=== PATIENT | female | born 1955 | race Caucasian/White ===

== ENCOUNTER 2017-11-09 14:16 | Emergency (ER) | payer MEDICAID, SELFPAY ==
--- NOTE | 2017-11-09 15:20 | DT_ITS ---
This patient was seen during an EMR downtime November 07, 2017 - November 14, 2017. This patient may have a combination of paper and electronic documentation or all paper documentation. All documentation is viewable within the e-chart portion of [facility] for each patient visit.
== END 2017-11-09 15:25 | disposition home or self-care (01) ==
PROVIDERS: Emergency Provider Emergency Medicine; Family Provider Student in an Organized Health Care Education/Training Program; PCP Student in an Organized Health Care Education/Training Program
DX: S39.012A Strain of muscle, fascia and tendon of lower back, initial encounter (principal); X50.1XXA Overexertion from prolonged static or awkward postures, initial encounter; Y93.9 Activity, unspecified; Y92.9 Unspecified place or not applicable; I25.10 Atherosclerotic heart disease of native coronary artery without angina pectoris; E11.9 Type 2 diabetes mellitus without complications; I10 Essential (primary) hypertension; E78.00 Pure hypercholesterolemia, unspecified; I25.2 Old myocardial infarction; J44.9 Chronic obstructive pulmonary disease, unspecified; Z90.89 Acquired absence of other organs; Z95.1 Presence of aortocoronary bypass graft; F17.200 Nicotine dependence, unspecified, uncomplicated
CPT/HCPCS: 99282

== ENCOUNTER 2020-01-30 22:39 | Emergency (ER) | payer MEDICAID, SELFPAY ==
[2020-01-30 22:40] VITALS: BP 143/87; PULSE 93; RESP 20; TEMP 36; O2SAT 97; BMI 31.5
--- NOTE | 2020-01-30 22:55 | ED.VIS.GEN ---
History of Present Illness Chief Complaint: Wound Informant: Patient, Family Onset: Days - 5 Narrative: Presents with daughter evaluation of wound to left lower extremity. Reports fell on gravel 5 days ago with an abrasion. Has been cleaning it. Today noted redness after removing dressing and little drainage. Denies fever. Patient is a diabetic. Tetanus is unknown. Denies any allergies. No other injuries. Prior similar symptoms: No Past Medical History - Allergies and Home Meds Allergies/Adverse Reactions: Allergies No Known Allergies Allergy (Verified 03/26/17 17:30) Primary Care Physician: Blanca Harris MD [Primary Care Provider] - Past Medical History: - - Coronary disease, hypertension, hyperlipidemia, diabetes Surgical History: noncontributory, coronary bypass surgery Smoking Status: Former smoker - Family History Maternal Family History: Family History (Last Updated 06/10/17 @ 09:[address] Petros Livingston MD) Mother Hypertension Family History: Reports: No pertinent history Review of Systems General: Denies: Chills, Fever, Sweats Eyes: Denies: Visual changes - bilaterally, Diplopia ENT: Denies: Rhinorrhea, Sore throat Cardiovascular: Denies: Chest pain, Palpitations Respiratory: Denies: Dyspnea, Cough, Dyspnea on exertion Gastrointestinal: Denies: Abdominal pain, Nausea, Vomiting, Diarrhea, Melena, Hematochezia Genitourinary: Denies: Dysuria, Hematuria, Frequency Musculoskeletal: Denies: Back pain, Extremity Pain Skin: Reports: Wounds. Denies: Rash Neurological: Denies: Headache, Weakness, Numbness Physical Exam Vital Signs/Narrative: Vital Signs Temp Pulse Resp BP Pulse Ox 01/30/20 22:40 96.8 F L 93 20 H 143/87 H 97 Inital Vital Signs reviewed: Yes General: Well nourished, Well developed, No Acute Distress Head: Normocephalic, Atraumatic Eyes: Perrl, EOMI ENT: Moist mucous membranes, No rhinorrhea Neck: Supple, Nontender Cardiovascular: Regular rate, Regular rhythm, No murmurs Respiratory: No distress, CTA bilaterally, Chest nontender Abdomen: Soft, Nontender, Nondistended, Normal bowel sounds Back: Nontender, Normal Inspection Extremities: Nontender, No edema, - - Left lower extremity: No knee or ankle tenderness, no deformities, neurovascular intact distally. Skin: - - Left lower leg: Anterior tibia: Abrasion down the middle third of anterior tibia with scabbing. There is clear drainage proximal and distal, middle of the wound 1 area small exudates. There is mild surrounding erythema around the wound with slight tenderness, there is no crepitus of the wounds. Neurological: Alert, Oriented x3, Cranial nerves II-XII grossly intact, Normal Strength, Normal Sensation Psychological: Normal affect, Normal Mood Diagnostic/Tx/Re-eval - Medical Decision Making Erythema was outlined by myself. Vitals are stable. Patient's tetanus updated. With increasing erythema with drainage and pus concerns for cellulitis. Will start on Keflex and Bactrim, discussed wound care with the patient. Wounds will be cleansed dressed with bacitracin and nursing in the ED. Signs and symptom discussed to return. Close follow-up as an outpatient. All questions were answered. ED Disposition - Plan for ED Patient: Disposition: Home or Assisted Living Diagnosis: Cellulitis of left leg without foot, Tetanus toxoid vaccination administered at current visit, Skin abrasion Instructions: ED Cellulitis, ED Wound Care Prescriptions: Bacitracin 30 gm TP DAILY #1 tube Transmission Status: Pending to [facility] Smz/Tmp Ds [Bactrim Ds] 1 tab PO BID #20 tab Transmission Status: Pending to [facility] Cephalexin [Keflex] 500 mg PO Q6 #40 cap Transmission Status: Pending to [facility] Referrals: Blanca Harris MD [Primary Care Provider] - 3-5 Days
[2020-01-30 23:16] VITALS: BP 146/87; PULSE 80; RESP 16; O2SAT 96
[2020-01-30] MEDS: BACITRACIN 15 GM Tube 1 APPLIC TOPICAL (23:20)
[2020-01-30] MEDS: Diphth,Pertuss(Acell),Tet Vac 0.5 ML Vial IM (23:20)
[2020-01-30] MEDS: Cephalexin 250 MG Capsule 500 MG PO (23:20)
[2020-01-30] MEDS: Smz/Tmp Ds Tablet 1 TABLET PO (23:20)
== END 2020-01-30 23:44 | disposition home or self-care (01) ==
LOC: ED 23:08
PROVIDERS: Emergency Provider Emergency Medicine; PCP Internal Medicine
DX: S80.812A Abrasion, left lower leg, initial encounter (principal); L03.116 Cellulitis of left lower limb; W19.XXXA Unspecified fall, initial encounter; Y93.9 Activity, unspecified; Y92.9 Unspecified place or not applicable; I10 Essential (primary) hypertension; Z95.1 Presence of aortocoronary bypass graft; Z79.82 Long term (current) use of aspirin; Z79.899 Other long term (current) drug therapy; Z87.891 Personal history of nicotine dependence
CPT/HCPCS: 90715; 99283

== ENCOUNTER 2020-02-07 16:51 | Emergency (ER) | payer MEDICAID, SELFPAY ==
[2020-02-07 16:55] VITALS: BP 80/53; PULSE 36; RESP 17; TEMP 36.6; O2SAT 92; BMI 33.0
--- NOTE | 2020-02-07 17:11 | ED.DCSUM_ITS ---
History of Present Illness Chief Complaint: Confusion Informant: Patient, Family Narrative: 64-year-old female presenting with low heart rate. She is accompanied by her daughter who states that she was here 01/30/2020 for evaluation of the left lower extremity wound. Patient had fallen and gravel. She was discharged home with Bactrim and Keflex. She states that this medication was giving her epigastric pain. This is worsened over the last 3 days. Patient states that she believes it was due to the medication. Daughter has concerned that patient seems confused today. When asked to describe this she states that she is slow to answer but answers appropriately. Patient states that she had been in [place] since April and came back in October 2019. She states that she established medical care with a nurse practitioner for her old physician but is unable to see the physician until August. She states that she is supposed to take 12.5 mg of metoprolol twice daily but takes the whole dose in the morning so she does not take it at night. - Past Medical History (1) Hypokalemia Status: Chronic (2) Pulmonary hypertension Status: Chronic (3) COPD (chronic obstructive pulmonary disease) Status: Chronic (4) Diabetes mellitus type 2 in nonobese Status: Chronic (5) Acute respiratory insufficiency Status: Chronic Past Medical History - Allergies and Home Meds Allergies/Adverse Reactions: Allergies No Known Allergies Allergy (Verified 02/07/20 16:59) Past Medical History: - - Reviewed and problem list Surgical History: noncontributory, coronary bypass surgery Smoking Status: Current every day smoker Alcohol: None Drugs: None - Family History Maternal Family History: Family History (Last Updated 06/10/17 @ 09:[address] Petros Livingston MD) Mother Hypertension Family History: Reports: No pertinent history Review of Systems General: Reports: Malaise, - - Confusion. Denies: Chills, Fever Eyes: Denies: Visual changes - bilaterally, Diplopia ENT: Denies: Rhinorrhea, Sore throat Cardiovascular: Denies: Chest pain, Palpitations Respiratory: Denies: Dyspnea, Cough, Dyspnea on exertion Gastrointestinal: Reports: Abdominal pain, Constipation Genitourinary: Denies: Dysuria, Hematuria Musculoskeletal: Denies: Myalgias, Arthralgias Skin: Denies: Rash, Abscess Physical Exam Vital Signs/Narrative: Vital Signs Temp Pulse Resp BP Pulse Ox 02/07/20 16:55 97.8 F 36 L 17 80/53 L 92 General: Obese, - - Hypotensive, bradycardic, hypoxic Eyes: Negative for: Perrl, EOMI ENT: Moist mucous membranes, No rhinorrhea Respiratory: - - Bibasilar crackles. No wheezing. In a stair movement Abdomen: Nondistended, - - Epigastric tenderness to palpation. Back: Nontender, Normal Inspection Skin: Normal color Neurological: Alert, Cranial nerves II-XII grossly intact Psychological: - - Slightly confused but answers questions appropriately when redirected Diagnostic/Tx/Re-eval Clinical Impression(s) from Imaging Studies Abdomen/Pelvis CT 02/07/20 17:14 IMPRESSION: 1. Cardiomegaly with evidence of median sternotomy. 2. Distended thick-walled gallbladder with high density material within the lumen. This could be further evaluated sonographically. 3. Small hiatal hernia. 4. Atherosclerotic changes of the abdominal aorta. 5. Mild degenerative changes of the lumbar spine. Electronically Signed: Ernesto Cedeno DO at 19:07 EDT Tel [phone], Service support , Chest CT 02/07/20 17:14 IMPRESSION: 1. Minimal atelectatic changes in the lingula due to compression by the enlarged heart. 2. Evidence of median sternotomy. 3. Degenerative changes of the lumbar spine. 4. Small hiatal hernia Electronically Signed: Ernesto Cedeno DO at 19:21 EDT Tel [phone], Service support , Chest X-Ray 02/07/20 17:20 IMPRESSION: Stable cardiomegaly with evidence of median sternotomy. There is no pulmonary disease. Electronically Signed: Ernesto Cedeno DO at 17:52 EDT Tel [phone], Service support , Abdomen Ultrasound 02/07/20 19:30 IMPRESSION: Thickened edematous gallbladder wall with minimal internal sludge. There is a negative sonographic Garay''s sign. The findings are are equivocal for acute cholecystitis. A hepatobiliary scan could be performed if clinically indicated. Electronically Signed: Ernesto Cedeno DO at 20:07 EDT Tel [phone], Service support , Laboratory Data 02/07/20 02/07/20 02/07/20 16:50 16:50 16:50 WBC Cancelled Corrected WBC Cancelled RBC Cancelled Hgb Cancelled Hct Cancelled MCV Cancelled MCH Cancelled MCHC Cancelled RDW Std Deviation Cancelled RDW Coeff of Chris Cancelled Plt Count Cancelled MPV Cancelled Immature Gran % (Auto) Cancelled Neut % (Auto) Cancelled Lymph % (Auto) Cancelled Mchenry % (Auto) Cancelled Eos % (Auto) Cancelled Baso % (Auto) Cancelled Absolute Neuts (auto) Cancelled Absolute Lymphs (auto) Cancelled Total Counted Cancelled Neutrophils % (Manual) Cancelled Band Neutrophils % Cancelled Lymphocytes % (Manual) Cancelled Monocytes % (Manual) Cancelled Eosinophils % (Manual) Cancelled Basophils % (Manual) Cancelled Metamyelocytes % Cancelled Myelocytes % Cancelled Promyelocytes % Cancelled Blast Cells % Cancelled Plasma Cell % (Manual) Cancelled Other Cells % Cancelled Nucleated RBC % Cancelled Nucleated RBCs/100 WBC Cancelled Differential Comment Cancelled Diff Path Review Cancelled Hypersegmented Neuts Cancelled Atypical Lymphocytes Cancelled Reactive Lymphocytes Cancelled Smudge Cells Cancelled Toxic Granulation Cancelled Toxic Vacuolation Cancelled Dohle Bodies Cancelled [place] Rods Cancelled Platelet Estimate Cancelled Plt Morphology Comment Cancelled RBC Morphology Cancelled Polychromasia Cancelled Hypochromasia Cancelled Poikilocytosis Cancelled Basophilic Stippling Cancelled Anisocytosis Cancelled Microcytosis Cancelled Macrocytosis Cancelled Spherocytes Cancelled Sickle Cells Cancelled Target Cells Cancelled Tear Drop Cells Cancelled Ovalocytes Cancelled Stomatocytes Cancelled [place] Bodies Cancelled [place] Cells Cancelled Bite Cells Cancelled Crenated Cell Cancelled Acanthocytes (Spur) Cancelled Rouleaux Cancelled Schistocytes Cancelled PT Cancelled INR Cancelled APTT Cancelled Sodium Cancelled Potassium Cancelled Chloride Cancelled Carbon Dioxide Cancelled Anion Gap Cancelled BUN Cancelled Creatinine Cancelled Estim Creat Clear Calc Cancelled Est GFR (MDRD) Af Amer Cancelled Est GFR (MDRD) Non-Af Cancelled BUN/Creatinine Ratio Cancelled Glucose Cancelled Lactic Acid Calcium Cancelled Total Bilirubin Cancelled AST Cancelled ALT Cancelled Alkaline Phosphatase Cancelled Troponin I Total Protein Cancelled Albumin Cancelled Globulin Cancelled Albumin/Globulin Ratio Cancelled Lipase Cancelled Urine Color Urine Clarity Urine pH Ur Specific [place] Urine Protein Urine Glucose (UA) Urine Ketones Urine Occult Blood Urine Nitrite Urine Bilirubin Urine Urobilinogen Ur Leukocyte Esterase Urine RBC Urine WBC Ur Squamous Epith Cells Uric Acid Crystals Urine Bacteria Urine Mucus 02/07/20 02/07/20 02/07/20 17:50 17:50 17:50 WBC 7.7 Corrected WBC RBC 4.00 L Hgb 11.8 L Hct 36.1 L MCV 90.3 MCH 29.5 MCHC 32.7 RDW Std Deviation 51.1 H RDW Coeff of Chris 15.5 H Plt Count 214 MPV 10.9 Immature Gran % (Auto) 0.700 Neut % (Auto) 75.2 H Lymph % (Auto) 17.0 L Mchenry % (Auto) 5.7 Eos % (Auto) 0.9 Baso % (Auto) 0.5 Absolute Neuts (auto) 5.8 Absolute Lymphs (auto) 1.31 Total Counted Neutrophils % (Manual) Band Neutrophils % Lymphocytes % (Manual) Monocytes % (Manual) Eosinophils % (Manual) Basophils % (Manual) Metamyelocytes % Myelocytes % Promyelocytes % Blast Cells % Plasma Cell % (Manual) Other Cells % Nucleated RBC % 0 Nucleated RBCs/100 WBC Differential Comment Diff Path Review Hypersegmented Neuts Atypical Lymphocytes Reactive Lymphocytes Smudge Cells Toxic Granulation Toxic Vacuolation Dohle Bodies [place] Rods Platelet Estimate Plt Morphology Comment RBC Morphology Polychromasia Hypochromasia Poikilocytosis Basophilic Stippling Anisocytosis Microcytosis Macrocytosis Spherocytes Sickle Cells Target Cells Tear Drop Cells Ovalocytes Stomatocytes [place] Bodies [place] Cells Bite Cells Crenated Cell Acanthocytes (Spur) Rouleaux Schistocytes PT INR APTT Sodium 135 L Potassium 5.4 H Chloride 108 H Carbon Dioxide 22.0 Anion Gap 5 BUN 47 H Creatinine 1.80 H Estim Creat Clear Calc 27.62 Est GFR (MDRD) Af Amer 36 L Est GFR (MDRD) Non-Af 30 L BUN/Creatinine Ratio 26.1 H Glucose 112 H Lactic Acid 1.6 Calcium 8.3 L Total Bilirubin 0.20 AST 34 ALT 35 Alkaline Phosphatase 54 Troponin I Total Protein 6.5 Albumin 3.1 L Globulin 3.4 Albumin/Globulin Ratio 0.9 Lipase 118 Urine Color Urine Clarity Urine pH Ur Specific [place] Urine Protein Urine Glucose (UA) Urine Ketones Urine Occult Blood Urine Nitrite Urine Bilirubin Urine Urobilinogen Ur Leukocyte Esterase Urine RBC Urine WBC Ur Squamous Epith Cells Uric Acid Crystals Urine Bacteria Urine Mucus 02/07/20 02/07/20 02/07/20 17:50 18:04 18:20 WBC Corrected WBC RBC Hgb Hct MCV MCH MCHC RDW Std Deviation RDW Coeff of Chris Plt Count MPV Immature Gran % (Auto) Neut % (Auto) Lymph % (Auto) Mchenry % (Auto) Eos % (Auto) Baso % (Auto) Absolute Neuts (auto) Absolute Lymphs (auto) Total Counted Neutrophils % (Manual) Band Neutrophils % Lymphocytes % (Manual) Monocytes % (Manual) Eosinophils % (Manual) Basophils % (Manual) Metamyelocytes % Myelocytes % Promyelocytes % Blast Cells % Plasma Cell % (Manual) Other Cells % Nucleated RBC % Nucleated RBCs/100 WBC Differential Comment Diff Path Review Hypersegmented Neuts Atypical Lymphocytes Reactive Lymphocytes Smudge Cells Toxic Granulation Toxic Vacuolation Dohle Bodies [place] Rods Platelet Estimate Plt Morphology Comment RBC Morphology Polychromasia Hypochromasia Poikilocytosis Basophilic Stippling Anisocytosis Microcytosis Macrocytosis Spherocytes Sickle Cells Target Cells Tear Drop Cells Ovalocytes Stomatocytes [place] Bodies [place] Cells Bite Cells Crenated Cell Acanthocytes (Spur) Rouleaux Schistocytes PT Cancelled 14.6 INR Cancelled 1.2 APTT Cancelled 28.2 Sodium Potassium Chloride Carbon Dioxide Anion Gap BUN Creatinine Estim Creat Clear Calc Est GFR (MDRD) Af Amer Est GFR (MDRD) Non-Af BUN/Creatinine Ratio Glucose Lactic Acid Calcium Total Bilirubin AST ALT Alkaline Phosphatase Troponin I 0.030 Total Protein Albumin Globulin Albumin/Globulin Ratio Lipase Urine Color Urine Clarity Urine pH Ur Specific [place] Urine Protein Urine Glucose (UA) Urine Ketones Urine Occult Blood Urine Nitrite Urine Bilirubin Urine Urobilinogen Ur Leukocyte Esterase Urine RBC Urine WBC Ur Squamous Epith Cells Uric Acid Crystals Urine Bacteria Urine Mucus 02/07/20 20:40 WBC Corrected WBC RBC Hgb Hct MCV MCH MCHC RDW Std Deviation RDW Coeff of Chris Plt Count MPV Immature Gran % (Auto) Neut % (Auto) Lymph % (Auto) Mchenry % (Auto) Eos % (Auto) Baso % (Auto) Absolute Neuts (auto) Absolute Lymphs (auto) Total Counted Neutrophils % (Manual) Band Neutrophils % Lymphocytes % (Manual) Monocytes % (Manual) Eosinophils % (Manual) Basophils % (Manual) Metamyelocytes % Myelocytes % Promyelocytes % Blast Cells % Plasma Cell % (Manual) Other Cells % Nucleated RBC % Nucleated RBCs/100 WBC Differential Comment Diff Path Review Hypersegmented Neuts Atypical Lymphocytes Reactive Lymphocytes Smudge Cells Toxic Granulation Toxic Vacuolation Dohle Bodies [place] Rods Platelet Estimate Plt Morphology Comment RBC Morphology Polychromasia Hypochromasia Poikilocytosis Basophilic Stippling Anisocytosis Microcytosis Macrocytosis Spherocytes Sickle Cells Target Cells Tear Drop Cells Ovalocytes Stomatocytes [place] Bodies [place] Cells Bite Cells Crenated Cell Acanthocytes (Spur) Rouleaux Schistocytes PT INR APTT Sodium Potassium Chloride Carbon Dioxide Anion Gap BUN Creatinine Estim Creat Clear Calc Est GFR (MDRD) Af Amer Est GFR (MDRD) Non-Af BUN/Creatinine Ratio Glucose Lactic Acid Calcium Total Bilirubin AST ALT Alkaline Phosphatase Troponin I Total Protein Albumin Globulin Albumin/Globulin Ratio Lipase Urine Color Yellow Urine Clarity Clear Urine pH 5.0 Ur Specific [place] 1.025 Urine Protein 15 H Urine Glucose (UA) Normal Urine Ketones Negative Urine Occult Blood Negative Urine Nitrite Negative Urine Bilirubin Negative Urine Urobilinogen Normal Ur Leukocyte Esterase Negative Urine RBC 0 SEEN Urine WBC 0 SEEN Ur Squamous Epith Cells 0 SEEN Uric Acid Crystals 2+ Urine Bacteria 0 SEEN Urine Mucus 0 SEEN - Rhythm Strip Rhythm Strip: Sinus Rhythm Rate: 33 - EKG Initial EKG Interpretation: Sinus Bradycardia - Medical Decision Making Patient presents with chief complaint of epigastric tenderness. She states this is been worse for the last 3 days. Upon presentation the patient was noted to be slightly hypoxic with O2 sats in the low 90s to upper 80s. She was also hypertensive with a systolic in the 80s. Her heart rate was 35 but it was sinus rhythm. Patient appeared to me in no acute distress other than having pain when she moves in her upper abdomen. Given her vital signs and her reporting that she took a full dose of metoprolol this morning as well as amlodipine she was given some glucagon which did not seem to improve her heart rate or blood pressure. She was given 2 L of fluid patient had lab work performed which shows acute kidney injury based on her previous lab work from last visit at [place]. Her LFTs are normal. Her lipase is normal. Her troponin is negative. She was pancultured given her vital signs and these are pending. Her chest x-ray was negative. Her urinalysis was also negative. I did want to CTA her however her acute kidney injury prevented this. I did get a noncontrast CAT scan of the chest abdomen pelvis which identifies thickened distended gallbladder. Follow- up ultrasound was read as possible acute cholecystitis. Her lab work would not backed this up as she does not have an bump in her LFTs, lipase, white blood cell count. I discussed this with Dr. Tomas who is on-call for surgery in order to admit the patient to the ICU with him on consult however he felt the patient needed to be transferred. Given this I did speak to [facility]. I spoke with Dr. Hawkins and after discussion he wanted me to try 2 mg of calcium gluconate. Patient had already been to Zosyn and he was to have vancomycin added. Although the patient had abnormal vital signs her blood pressure did improve, her heart rate stayed at 35. She was at 92% on 2 L when transported. Impression: 1. Acute cholecystitis 2. Hypotension 3. Sinus bradycardia 4. Hypoxia 5. Acute kidney injury ED Disposition - Plan for ED Patient:
--- NOTE | 2020-02-07 17:14 | CT_ITS ---
STUDY: CT CHEST WITHOUT CONTRAST REASON FOR EXAM: Female, 64 years old. Epigastric pain. RADIATION DOSAGE (If Supplied By Facility): CTDIvol = ( 18.89 ) mGy, DLP = ( 1681.17 ) mGycm TECHNIQUE: Transaxial imaging was performed without the administration of intravenous contrast material. Multiplanar coronal and sagittal images were reformatted. Individualized dose optimization techniques were used for this CT. COMPARISON: Chest, 02/07/2020. FINDINGS: The lungs are normal. Minimal changes in the lingula secondary to compression by the enlarged heart. There is no demonstrated pleural abnormality. The heart is enlarged. There is evidence of median sternotomy. Nonspecific subcentimeter mediastinal lymphadenopathy. Normal hilar regions. Normal unenhanced pulmonary arteries. Normal aorta arch and descending thoracic aorta. There are multi-level degenerative changes of the thoracic spine. Small hiatal hernia. The upper abdomen is otherwise unremarkable. CT/Chest without Contrast IMPRESSION: 1. Minimal atelectatic changes in the lingula due to compression by the enlarged heart. 2. Evidence of median sternotomy. 3. Degenerative changes of the lumbar spine. 4. Small hiatal hernia Electronically Signed: Ernesto Cedeno DO at 19:21 EDT Tel [phone], Service support ,
--- NOTE | 2020-02-07 17:14 | CT_ITS ---
STUDY: CT ABDOMEN AND PELVIS WITHOUT CONTRAST REASON FOR EXAM: Female, 64 years old. Epigastric pain. RADIATION DOSAGE (If Supplied By Facility): CTDIvol = ( 18.89 ) mGy, DLP = ( 1681.17 ) mGycm TECHNIQUE: Transaxial images were obtained from the dome of the diaphragm to the symphysis pubis without oral contrast, and without intravenous contrast. Sagittal and coronal images were reconstructed. Individualized dose optimization techniques were used for this CT. COMPARISON: None. FINDINGS: The visualized lung bases are unremarkable. Heart is enlarged. There is evidence of median sternotomy. Normal liver. The gallbladder is well distended. There is mild wall thickening. There is high density material within the gallbladder lumen suggesting sludge. There is no biliary ductal dilatation. Normal spleen. Normal pancreas. Normal bilateral adrenal glands. Is mild stranding of the retroperitoneum about the left adrenal gland. Normal right kidney. Normal left kidney. Normal visualized ureters Small hiatal hernia. The stomach is otherwise unremarkable. Normal small intestine. Normal colon. There is non-visualization of the appendix. There is diffuse atherosclerotic calcification of the abdominal aorta, without a demonstrated aneurysm. Normal inferior vena cava. Normal retroperitoneum. Normal urinary bladder. Normal uterus. There is no adnexal mass. There is no pelvic lymphadenopathy. Minimal free fluid is seen in the posterior cul-de-sac. No free air is seen within the peritoneal cavity. Normal abdominal wall. There are diffuse degenerative changes of the visualized lumbar spine. CT/Abdomen/Pelvis without Cont IMPRESSION: 1. Cardiomegaly with evidence of median sternotomy. 2. Distended thick-walled gallbladder with high density material within the lumen. This could be further evaluated sonographically. 3. Small hiatal hernia. 4. Atherosclerotic changes of the abdominal aorta. 5. Mild degenerative changes of the lumbar spine. Electronically Signed: Ernesto Cedeno DO at 19:07 EDT Tel [phone], Service support ,
[2020-02-07] MEDS: 0.9% Normal Saline 1,000 ML 999 ML IV ×3 (17:15→22:07)
--- NOTE | 2020-02-07 17:20 | RAD_ITS ---
STUDY: X-RAY CHEST REASON FOR EXAM: Female, 64 years old. Epigastric pain. Confusion. TECHNIQUE: Single AP portable view of the chest. COMPARISON: None. FINDINGS: The lungs are clear and expanded. There is no demonstrated pleural abnormality. Sternal cerclage wires are present from a prior sternotomy. Stable cardiomegaly. Normal mediastinum and keon. Normal visualized pulmonary arteries. Normal visualized aortic arch and descending thoracic aorta. No visualized osseous changes. There is no demonstrated abnormality of the visualized soft tissue structures of the upper abdomen. RAD/Chest 1 View (Portable) IMPRESSION: Stable cardiomegaly with evidence of median sternotomy. There is no pulmonary disease. Electronically Signed: Ernesto Cedeno DO at 17:52 EDT Tel [phone], Service support ,
[2020-02-07] MEDS: Glucagon 1 MG/ML Syringe 2 MG IV (17:26)
[2020-02-07 17:29] VITALS: BP 92/44; PULSE 35; RESP 18; O2SAT 89; O2SAT 92
[2020-02-07 17:33] VITALS: O2SAT 95
[2020-02-07 18:04] LABS: Absolute Lymphocyte Count 1.31 X10^3/uL (0.83-4.51); Absolute Neutrophil Count 5.8 X10^3/uL (2.0-7.7); Basophil# 0.04 X10^3/uL; Basophil% 0.5 % (0-1); Eosinophil# 0.07 X10^3/uL; Eosinophils% 0.9 % (0-5); Hematocrit 36.1 % (37-47); Hemoglobin 11.8 g/dL (12.0-15.0); Lymphocyte # 1.31 X10^3/ul (4.0); Mean Corp Hgb Conc 32.7 g/dL (32-36); Mean Corpuscular Hgb 29.5 pg (27.0-32.0); Mean Corpuscular Volume 90.3 fL (81-99); Mean Platelet Vol. 10.9 fl (6.2-12.0); Monocyte# 0.44 X10^3/uL; Monocyte% 5.7 % (0-10); NRBC Flagged by Analyzer 0 % (0-5); Neutrophil # 5.78 X10^3/uL (2.7-7.7); Neutrophil % 75.2 % (47-70); Platelet Count 214 K/mm3 (150-450); RBC Distribution Width CV 15.5 % (11.6-14.6); RBC Distribution Width SD 51.1 fl (35.1-43.9); White Blood Count 7.7 K/mm3 (4.4-11.0)
[2020-02-07 18:29] LABS: ALB/GLOB Ratio 0.9 RATIO (0.9-2.4); AST(SGOT) 34 U/L (15-37); Alanine Aminotransfer ALT/SGPT 35 U/L (13-56); Albumin, Serum 3.1 g/dL (3.2-5.0); Alkaline Phosphatase 54 U/L (45-117); Anion Gap 5 (5-15); BUN 47 mg/dL (7-18); BUN/Creat Ratio 26.1 RATIO (10-20); Calcium,Total 8.3 mg/dL (8.5-10.1); Chloride 108 mmol/L (98-107); EST Glomerular Filtration Rate 30 mL/min (>60); Est Glom Filt Rate - Afr Amer 36 mL/min (>60); Estimated Creatinine Clearance 27.62 ml/min; Globulin 3.4 g/dL (2.2-4.2); Glucose 112 mg/dL (74-106); Lipase 118 U/L (73-393); Potassium 5.4 mmol/L (3.5-5.1); Protein, Total 6.5 g/dL (6.4-8.2); Sodium Level 135 mmol/L (136-145)
[2020-02-07 18:35] LABS: Lactic Acid 1.6 mmol/L (0.4-1.9)
[2020-02-07 18:44] LABS: International Normalized Ratio 1.2; Prothrombin Time (Protime)PT. 14.6 SECONDS (11.7-14.9)
[2020-02-07 18:45] LABS: Partial Thromboplast Time 28.2 Seconds (24.1-36.2)
--- NOTE | 2020-02-07 19:30 | US_ITS ---
STUDY: ABDOMINAL ULTRASOUND - RIGHT UPPER QUADRANT REASON FOR VISIT: Female, 64 years old. Epigastric pain. TECHNIQUE: Ultrasound evaluation of the right upper quadrant was performed with real-time and static cagle-scale imaging. TECHNICAL QUALITY: Adequate. COMPARISON: CT of the abdomen and pelvis, 02/07/2020. FINDINGS: Liver: The liver measures 17.9 cm. There is normal echogenicity of the liver. The bile ducts are within normal limits. There is hepatic color flow. The direction of portal flow is hepatopetal. There is no demonstrated mass lesion. Gallbladder: Normal distended gallbladder. The gallbladder wall measures 5 mm and is mildly edematous. There is a negative sonographic Garay''s sign. There is no pericholecystic fluid. Minimal sludge is seen within the gallbladder lumen. Common Bile Duct (C.B.D.): The common bile duct measures 3 mm. Pancreas: Normal size of the head, body and proximal tail of the pancreas. The distal tail is obscured. There is normal echogenicity of the pancreas. There is no demonstrated pancreatic mass or cyst. Right Kidney: Normal size of the right kidney. The right kidney measures 9.9 cm. Normal renal cortex. The right cortex measures 1.3 cm. There is no demonstrated renal mass or cyst. There is no right hydronephrosis. US/Abdomen Limited IMPRESSION: Thickened edematous gallbladder wall with minimal internal sludge. There is a negative sonographic Garay''s sign. The findings are are equivocal for acute cholecystitis. A hepatobiliary scan could be performed if clinically indicated. Electronically Signed: Ernesto Cedeno DO at 20:07 EDT Tel [phone], Service support ,
[2020-02-07 20:20] VITALS: BP 94/49; PULSE 34; RESP 20; TEMP 36.6; O2SAT 93
[2020-02-07 20:47] LABS: Bacteria 0 SEEN /hpf (None Seen); Mucous, Urine 0 SEEN /hpf (<or=2+); Red Blood Cells-Urine 0 SEEN /hpf (0-5); Squamous Epithelial Cells - UA 0 SEEN /hpf (5-10); White Blood Cells 0 SEEN /hpf (0-5)
[2020-02-07 20:50] LABS: Color, Urine Yellow (Yellow); Glucose, Dipstick Normal (Normal); Ketone-Dipstick Negative (Negative); Leukocyte Esterase-Dipstick Negative /ul (Negative); Nitrite-Dipstick Negative (Negative); Occult Blood-Urine Negative /ul (Negative); Protein-Dipstick 15 mg/dl (Negative); Specific Gravity, Urine 1.025 (1.002-1.030); Urine Bilirubin Dipstick Negative (Negative); Urine Clarity Clear (Clear); Urine Urobilinogen Normal (Normal)
--- NOTE | 2020-02-07 20:53 | PCM.HP.STD ---
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) Hypokalemia (Chronic) Pulmonary hypertension (Chronic) COPD (chronic obstructive pulmonary disease) (Chronic) Diabetes mellitus type 2 in nonobese (Chronic) Acute respiratory insufficiency (Chronic) Benign essential HTN (Chronic) HLD (hyperlipidemia) (Chronic) Obesity (Chronic) Anxious depression (Chronic) Tobacco abuse (Chronic) Medical History: Medical History (Last Updated 07/18/17 @ 07:41 by Eugenie Fields) Hypophosphatemia (Acute) E83.39 Hypokalemia (Chronic) E87.6 Pulmonary hypertension (Chronic) I27.20 COPD (chronic obstructive pulmonary disease) (Chronic) J44.9 Diabetes mellitus type 2 in nonobese (Chronic) E11.9 Acute respiratory insufficiency (Chronic) R06.89 Diastolic congestive heart failure (Acute) I50.30 Streptococcal pneumonia (Acute) J15.4 Parainfluenza type 1 infection (Acute) B34.8 Severe sepsis (Acute) A41.9, R65.20 Benign essential HTN (Chronic) I10 HLD (hyperlipidemia) (Chronic) E78.5 Obesity (Chronic) E66.9 Anxious depression (Chronic) Tobacco abuse (Chronic) Z72.0 Arthritis M19.90 Chronic sinusitis J32.9 Coronary artery disease I25.10 Diabetes E11.9 Forearm laceration S51.819A right History of back problems Hypertension I10 Allergies No Known Allergies Allergy (Verified 02/07/20 16:59) Home Medications: Ambulatory Orders Medication Instructions Recorded Amlodipine [Norvasc] 5 mg PO DAILY 03/20/17 Aspirin 81 mg PO DAILY 03/20/17 Atorvastatin Calcium [Lipitor] 80 mg PO QHS 03/20/17 Lisinopril [Zestril] 10 mg PO DAILY 03/20/17 Albuterol Inhaler [Ventolin Hfa] 1 - 2 puff INHALATION Q4H PRN PRN 03/31/17 #1 inhaler Budesonide/Formoterol Fumarate 10.2 gm IH BID #1 hfa.aer.ad 03/31/17 [Symbicort 160-4.5 Mcg Inhaler] tiotropium bromide 2.5 2 puff INHALATION DAILY #4 g 06/07/17 mcg/actuation mist for inhalation Bacitracin 30 gm TP DAILY #1 tube 01/30/20 Cephalexin [Keflex] 500 mg PO Q6 #40 cap 01/30/20 Smz/Tmp Ds [Bactrim Ds] 1 tab PO BID #20 tab 01/30/20 Amiodarone HCl 200 mg PO DAILY 02/07/20 Carvedilol 6.25 mg PO BID 02/07/20 Cetirizine HCl [Zyrtec] 10 mg PO DAILY 02/07/20 Fluticasone 0.05% [Flonase Nasal 2 spray NASAL DAILY 02/07/20 [place]] Metoprolol Tartrate [Lopressor 25 mg PO DAILY 02/07/20 (beta marcelle)] Surgical History: Surgical History (Last Updated 07/18/17 @ 07:41 by Eugenie Fields) History of appendectomy Z98.890, Z90.49 History of section Z98.891 x2 S/P quadruple vessel bypass Z95.1 12/2004 Surgical History: noncontributory, coronary bypass surgery Smoking Status: Heavy Smoker (>10/day) Alcohol: None Drugs: None - *Family History Maternal Family History: Family History (Last Updated 06/10/17 @ 09:[address] Petros Livingston MD) Mother Hypertension History Items: No pertinent history - Physical Exam Vitals/I&O's: Vital Signs Temp Pulse Resp BP Pulse Ox 97.8 F 34 L 20 H 94/49 L 93 02/07/20 20:20 02/07/20 20:20 02/07/20 20:20 02/07/20 20:20 02/07/20 20:20 Oxygen Flow Rate (L/min) 3 Oxygen Delivery Method Nasal Cannula Weight: 87.5 kg Body Mass Index (BMI) 33.0 Finger Stick Blood Glucose 86 Intake and Output for Last 24 Hours 02/05/20 02/06/20 02/07/20 23:59 23:59 23:59 Intake Total 1999 Balance 1999 Laboratory Results 02/07/20 16:50: WBC Cancelled, Corrected WBC Cancelled, RBC Cancelled, Hgb Cancelled, Hct Cancelled, MCV Cancelled, MCH Cancelled, MCHC Cancelled, RDW Std Deviation Cancelled, RDW Coeff of Chris Cancelled, Plt Count Cancelled, MPV Cancelled, Immature Gran % (Auto) Cancelled, Neut % (Auto) Cancelled, Lymph % (Auto) Cancelled, [place] % (Auto) Cancelled, Eos % (Auto) Cancelled, Baso % (Auto) Cancelled, Absolute Neuts (auto) Cancelled, Absolute Lymphs (auto) Cancelled, Total Counted Cancelled, Neutrophils % (Manual) Cancelled, Band Neutrophils % Cancelled, Lymphocytes % (Manual) Cancelled, Monocytes % (Manual) Cancelled, Eosinophils % (Manual) Cancelled, Basophils % (Manual) Cancelled, Metamyelocytes % Cancelled, Myelocytes % Cancelled, Promyelocytes % Cancelled, Blast Cells % Cancelled, Plasma Cell % (Manual) Cancelled, Other Cells % Cancelled, Nucleated RBC % Cancelled, Nucleated RBCs/100 WBC Cancelled, Differential Comment Cancelled, Diff Path Review Cancelled, Hypersegmented Neuts Cancelled, Atypical Lymphocytes Cancelled, Reactive Lymphocytes Cancelled, Smudge Cells Cancelled, Toxic Granulation Cancelled, Toxic Vacuolation Cancelled, Dohle Bodies Cancelled, Maico Rods Cancelled, Platelet Estimate Cancelled, Plt Morphology Comment Cancelled, RBC Morphology Cancelled, Polychromasia Cancelled, Hypochromasia Cancelled, Poikilocytosis Cancelled, Basophilic Stippling Cancelled, Anisocytosis Cancelled, Microcytosis Cancelled, Macrocytosis Cancelled, Spherocytes Cancelled, Sickle Cells Cancelled, Target Cells Cancelled, Tear Drop Cells Cancelled, Ovalocytes Cancelled, Stomatocytes Cancelled, [place] Bodies Cancelled, [place] Cells Cancelled, Bite Cells Cancelled, Crenated Cell Cancelled, Acanthocytes (Spur) Cancelled, Rouleaux Cancelled, Schistocytes Cancelled 02/07/20 16:50: PT Cancelled, INR Cancelled, APTT Cancelled 02/07/20 16:50: Sodium Cancelled, Potassium Cancelled, Chloride Cancelled, Carbon Dioxide Cancelled, Anion Gap Cancelled, BUN Cancelled, Creatinine Cancelled, Estim Creat Clear Calc Cancelled, Est GFR (MDRD) Af Amer Cancelled, Est GFR (MDRD) Non-Af Cancelled, BUN/Creatinine Ratio Cancelled, Glucose Cancelled, Calcium Cancelled, Total Bilirubin Cancelled, AST Cancelled, ALT Cancelled, Alkaline Phosphatase Cancelled, Total Protein Cancelled, Albumin Cancelled, Globulin Cancelled, Albumin/Globulin Ratio Cancelled, Lipase Cancelled 02/07/20 17:50: Lactic Acid 1.6 02/07/20 17:50: WBC 7.7, RBC 4.00 L, Hgb 11.8 L, Hct 36.1 L, MCV 90.3, MCH 29.5, MCHC 32.7, RDW Std Deviation 51.1 H, RDW Coeff of Chris 15.5 H, Plt Count 214, MPV 10.9, Immature Gran % (Auto) 0.700, Neut % (Auto) 75.2 H, Lymph % (Auto) 17.0 L, [place] % (Auto) 5.7, Eos % (Auto) 0.9, Baso % (Auto) 0.5, Absolute Neuts (auto) 5.8, Absolute Lymphs (auto) 1.31, Nucleated RBC % 0 02/07/20 17:50: Sodium 135 L, Potassium 5.4 H, Chloride 108 H, Carbon Dioxide 22.0, Anion Gap 5, BUN 47 H, Creatinine 1.80 H, Estim Creat Clear Calc 27.62, Est GFR (MDRD) Af Amer 36 L, Est GFR (MDRD) Non-Af 30 L, BUN/Creatinine Ratio 26.1 H, Glucose 112 H, Calcium 8.3 L, Total Bilirubin 0.20, AST 34, ALT 35, Alkaline Phosphatase 54, Total Protein 6.5, Albumin 3.1 L, Globulin 3.4, Albumin/Globulin Ratio 0.9, Lipase 118 02/07/20 17:50: Troponin I 0.030 02/07/20 18:04: PT Cancelled, INR Cancelled, APTT Cancelled 02/07/20 18:20: PT 14.6, INR 1.2, APTT 28.2 02/07/20 20:40: Urine Color Pending, Urine Clarity Pending, Urine pH Pending, Ur Specific [place] Pending, Urine Protein Pending, Urine Glucose (UA) Pending, Urine Ketones Pending, Urine Occult Blood Pending, Urine Nitrite Pending, Urine Bilirubin Pending, Urine Urobilinogen Pending, Ur Leukocyte Esterase Pending, Urine RBC Pending, Urine WBC Pending, Ur Squamous Epith Cells Pending, Urine Bacteria Pending, Urine Mucus Pending Assessment/Plan All Active Problems (Last Updated 07/18/17 @ 07:41 by Eugenie Fields) Hypophosphatemia (Acute) Diastolic congestive heart failure (Acute) Streptococcal pneumonia (Acute) Parainfluenza type 1 infection (Acute) Severe sepsis (Acute)
[2020-02-07 21:05] LABS: Uric Acid Crystals Ur 2+ /hpf (<or=1+)
--- NOTE | 2020-02-07 21:32 | CON.PCM_ITS ---
Problem List (1) Right upper quadrant abdominal pain Status: Acute (2) Acute cholecystitis Status: Acute Reason for Consult Date of Consultation: 02/07/20 History of Present Illness: The patient is a 64 year old F who presented to [facility] emergency department tonight. She has been complaining of epigastric abdominal pain. Patient states that she ate chicken Parmesan at [place] subse quently developed epigastric abdominal pain. She was also noted to be hypotensive with a blood pressure in the 80s and a heart rate in the 30s. Work- up included a chest CT abdominal CT and a gallbladder ultrasound. This showed a thickened gallbladder wall with sludge in the gallbladder itself. Gallbladder wall measures up to 5 mm. Liver function tests have been normal. Her pain has now been more localized to the right upper quadrant. 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 Mario Tomas MD) Hypophosphatemia (Acute) E83.39 Hypokalemia (Chronic) E87.6 Pulmonary hypertension (Chronic) I27.20 COPD (chronic obstructive pulmonary disease) (Chronic) J44.9 Diabetes mellitus type 2 in nonobese (Chronic) E11.9 Acute respiratory insufficiency (Chronic) R06.89 Diastolic congestive heart failure (Acute) I50.30 Streptococcal pneumonia (Acute) J15.4 Parainfluenza type 1 infection (Acute) B34.8 Severe sepsis (Acute) A41.9, R65.20 Benign essential HTN (Chronic) I10 HLD (hyperlipidemia) (Chronic) E78.5 Obesity (Chronic) E66.9 Anxious depression (Chronic) Tobacco abuse (Chronic) Z72.0 Arthritis M19.90 Chronic sinusitis J32.9 Coronary artery disease I25.10 Diabetes E11.9 Forearm laceration S51.819A right History of back problems Hypertension I10 Allergies No Known Allergies Allergy (Verified 02/07/20 16:59) Home Medications: Ambulatory Orders Medication Instructions Recorded Amlodipine [Norvasc] 5 mg PO DAILY 03/20/17 Aspirin 81 mg PO DAILY 03/20/17 Atorvastatin Calcium [Lipitor] 80 mg PO QHS 03/20/17 Lisinopril [Zestril] 10 mg PO DAILY 03/20/17 Albuterol Inhaler [Ventolin Hfa] 1 - 2 puff INHALATION Q4H PRN PRN 03/31/17 #1 inhaler Budesonide/Formoterol Fumarate 10.2 gm IH BID #1 hfa.aer.ad 03/31/17 [Symbicort 160-4.5 Mcg Inhaler] tiotropium bromide 2.5 2 puff INHALATION DAILY #4 g 06/07/17 mcg/actuation mist for inhalation Bacitracin 30 gm TP DAILY #1 tube 01/30/20 Cephalexin [Keflex] 500 mg PO Q6 #40 cap 01/30/20 Smz/Tmp Ds [Bactrim Ds] 1 tab PO BID #20 tab 01/30/20 Amiodarone HCl 200 mg PO DAILY 02/07/20 Carvedilol 6.25 mg PO BID 02/07/20 Cetirizine HCl [Zyrtec] 10 mg PO DAILY 02/07/20 Fluticasone 0.05% [Flonase Nasal 2 spray NASAL DAILY 02/07/20 [place]] Metoprolol Tartrate [Lopressor 25 mg PO DAILY 02/07/20 (beta marcelle)] Surgical History: Surgical History (Last Reviewed 02/07/20 @ 21:[address] Mario Tomas MD) History of appendectomy Z98.890, Z90.49 History of section Z98.891 x2 S/P quadruple vessel bypass Z95.1 12/2004 Surgical History: noncontributory, coronary bypass surgery Smoking Status: Heavy Smoker (>10/day) Alcohol: None Drugs: None - *Family History Maternal Family History: Family History (Last Updated 06/10/17 @ 09:[address] Petros Livingston MD) Mother Hypertension History Items: No pertinent history Review of Systems Constitutional: Reports: Malaise Cardiovascular: Denies: Chest Pain, Chest Pressure, Chest Tightness, Palpitations Respiratory: Reports: Shortness of Breath Gastrointestinal: Reports: Abdominal Pain. Denies: Nausea, Vomiting Genitourinary: Denies: Dysuria, Frequency, Hematuria, Urgency Musculoskeletal: Denies: Joint Pain Patient Problems: Active and Suspected Problems (Last Updated 07/18/17 @ 07:41 by Eugenie Fields) Right upper quadrant abdominal pain (Acute) Acute cholecystitis (Acute) - Physical Exam Vitals/I&O's: Vital Signs Temp Pulse Resp BP Pulse Ox 97.8 F 34 L 20 H 94/49 L 93 02/07/20 20:20 02/07/20 20:20 02/07/20 20:20 02/07/20 20:20 02/07/20 20:20 Oxygen Flow Rate (L/min) 3 Oxygen Delivery Method Nasal Cannula Weight: 192 lb 14.472 oz Body Mass Index (BMI) 33.0 Finger Stick Blood Glucose 86 Intake and Output for Last 24 Hours 02/05/20 02/06/20 02/07/20 23:59 23:59 23:59 Intake Total 1999 Balance 1999 General: Alert, Cooperative Lungs: Clear to auscultation Cardiovascular: Regular rate, Regular Rhythm, No murmurs Abdomen: Tender - Patient has significant tenderness in the right upper quadrant more so than the epigastric area. Rest of her abdomen appears to be soft there is no rebound in the lower abdomen but she has voluntary guarding in the upper abdomen. Extremities: No clubbing, No cyanosis, No edema Laboratory Results 02/07/20 16:50: WBC Cancelled, Corrected WBC Cancelled, RBC Cancelled, Hgb Cancelled, Hct Cancelled, MCV Cancelled, MCH Cancelled, MCHC Cancelled, RDW Std Deviation Cancelled, RDW Coeff of Chris Cancelled, Plt Count Cancelled, MPV Cancelled, Immature Gran % (Auto) Cancelled, Neut % (Auto) Cancelled, Lymph % (Auto) Cancelled, [place] % (Auto) Cancelled, Eos % (Auto) Cancelled, Baso % (Auto) Cancelled, Absolute Neuts (auto) Cancelled, Absolute Lymphs (auto) Cancelled, Total Counted Cancelled, Neutrophils % (Manual) Cancelled, Band Neutrophils % Cancelled, Lymphocytes % (Manual) Cancelled, Monocytes % (Manual) Cancelled, Eosinophils % (Manual) Cancelled, Basophils % (Manual) Cancelled, Metamyelocytes % Cancelled, Myelocytes % Cancelled, Promyelocytes % Cancelled, Blast Cells % Cancelled, Plasma Cell % (Manual) Cancelled, Other Cells % Cancelled, Nucleated RBC % Cancelled, Nucleated RBCs/100 WBC Cancelled, Differential Comment Cancelled, Diff Path Review Cancelled, Hypersegmented Neuts Cancelled, Atypical Lymphocytes Cancelled, Reactive Lymphocytes Cancelled, Smudge Cells Cancelled, Toxic Granulation Cancelled, Toxic Vacuolation Cancelled, Dohle Bodies Cancelled, Ma[place] Rods Cancelled, Platelet Estimate Cancelled, Plt Morphology Comment Cancelled, RBC Morphology Cancelled, Polychromasia Cancelled, Hypochromasia Cancelled, Poikilocytosis Cancelled, Basophilic Stippling Cancelled, Anisocytosis Cancelled, Microcytosis Cancelled, Macrocytosis Cancelled, Spherocytes Cancelled, Sickle Cells Cancelled, Target Cells Cancelled, Tear Drop Cells Cancelled, Ovalocytes Cancelled, Stomatocytes Cancelled, [place] Bodies Cancelled, [place] Cells Cancelled, Bite Cells Cancelled, Crenated Cell Cancelled, Acanthocytes (Spur) Cancelled, Rouleaux Cancelled, Schistocytes Cancelled 02/07/20 16:50: PT Cancelled, INR Cancelled, APTT Cancelled 02/07/20 16:50: Sodium Cancelled, Potassium Cancelled, Chloride Cancelled, Carbon Dioxide Cancelled, Anion Gap Cancelled, BUN Cancelled, Creatinine Cancelled, Estim Creat Clear Calc Cancelled, Est GFR (MDRD) Af Amer Cancelled, Est GFR (MDRD) Non-Af Cancelled, BUN/Creatinine Ratio Cancelled, Glucose Cancelled, Calcium Cancelled, Total Bilirubin Cancelled, AST Cancelled, ALT Cancelled, Alkaline Phosphatase Cancelled, Total Protein Cancelled, Albumin Cancelled, Globulin Cancelled, Albumin/Globulin Ratio Cancelled, Lipase Cancelled 02/07/20 17:50: Lactic Acid 1.6 02/07/20 17:50: WBC 7.7, RBC 4.00 L, Hgb 11.8 L, Hct 36.1 L, MCV 90.3, MCH 29.5, MCHC 32.7, RDW Std Deviation 51.1 H, RDW Coeff of Chris 15.5 H, Plt Count 214, MPV 10.9, Immature Gran % (Auto) 0.700, Neut % (Auto) 75.2 H, Lymph % (Auto) 17.0 L, [place] % (Auto) 5.7, Eos % (Auto) 0.9, Baso % (Auto) 0.5, Absolute Neuts (auto) 5.8, Absolute Lymphs (auto) 1.31, Nucleated RBC % 0 02/07/20 17:50: Sodium 135 L, Potassium 5.4 H, Chloride 108 H, Carbon Dioxide 22.0, Anion Gap 5, BUN 47 H, Creatinine 1.80 H, Estim Creat Clear Calc 27.62, Est GFR (MDRD) Af Amer 36 L, Est GFR (MDRD) Non-Af 30 L, BUN/Creatinine Ratio 26.1 H, Glucose 112 H, Calcium 8.3 L, Total Bilirubin 0.20, AST 34, ALT 35, Alkaline Phosphatase 54, Total Protein 6.5, Albumin 3.1 L, Globulin 3.4, Albumin/Globulin Ratio 0.9, Lipase 118 02/07/20 17:50: Troponin I 0.030 02/07/20 18:04: PT Cancelled, INR Cancelled, APTT Cancelled 02/07/20 18:20: PT 14.6, INR 1.2, APTT 28.2 02/07/20 20:40: Urine Color Yellow, Urine Clarity Clear, Urine pH 5.0, Ur Spe cific Lane 1.025, Urine Protein 15 H, Urine Glucose (UA) Normal, Urine Ketones Negative, Urine Occult Blood Negative, Urine Nitrite Negative, Urine Bilirubin Negative, Urine Urobilinogen Normal, Ur Leukocyte Esterase Negative, Urine RBC 0 SEEN, Urine WBC 0 SEEN, Ur Squamous Epith Cells 0 SEEN, Uric Acid Crystals 2+, Urine Bacteria 0 SEEN, Urine Mucus 0 SEEN Current Medications Sodium Chloride () 1,000 mls @ 999 mls/hr IV .Q1H1M ONE Stop: 02/07/20 22:23 Assessment/Plan All Active Problems (Last Updated 07/18/17 @ 07:41 by Eugenie Fields) Right upper quadrant abdominal pain (Acute) Acute cholecystitis (Acute) Hypophosphatemia (Acute) Diastolic congestive heart failure (Acute) Streptococcal pneumonia (Acute) Parainfluenza type 1 infection (Acute) Severe sepsis (Acute) Given this patient's overall medical condition and the fact that she is bradycardic and hypotensive I do not think that she is a good surgical candidate at all here [facility] I think that she would be better served to be seen at a tertiary referral center. It is my recommendation that she be transferred from the emergency department. Office Visits / Consults: [id number] IP Consult L3
[2020-02-07 22:12] VITALS: BP 97/54; PULSE 35; RESP 22; TEMP 36.8; O2SAT 92
[2020-02-07] MEDS: Calcium Gluconate 1 GM/10 ML Vial 2 GM IV (22:48)
[2020-02-07 23:07] VITALS: BP 105/73; PULSE 38; RESP 20; TEMP 36.8; O2SAT 91
--- NOTE | 2020-02-07 23:59 | ED.RN ---
SPOKE WITH DAUGHTER FOR UPDATE ON TRANSFER
[2020-02-08] VITALS: BP 110/57; PULSE 40; RESP 18; TEMP 36.8; O2SAT 93
== END 2020-02-08 00:36 | disposition short-term general hospital (02) ==
LOC: ED 17:15
PROVIDERS: Emergency Provider Student in an Organized Health Care Education/Training Program; PCP Internal Medicine
DX: K81.0 Acute cholecystitis (principal); I95.9 Hypotension, unspecified; R00.1 Bradycardia, unspecified; R09.02 Hypoxemia; N17.9 Acute kidney failure, unspecified; E87.6 Hypokalemia; I27.20 Pulmonary hypertension, unspecified; E11.9 Type 2 diabetes mellitus without complications; J44.9 Chronic obstructive pulmonary disease, unspecified; F17.200 Nicotine dependence, unspecified, uncomplicated; Z95.1 Presence of aortocoronary bypass graft; Z79.82 Long term (current) use of aspirin; Z79.899 Other long term (current) drug therapy
CPT/HCPCS: 71045; 71250; 74176; 76705; 80053; 81001; 83605; 83690; 84484; 85025; 85610; 85730; 87040; 87086; 93005; 96361; 96365; 96375; 99285; J7030; A4216; J0610; J1610

== ENCOUNTER → 2020-11-05 11:23 | Outpatient (CLI) | payer MEDICAID, SELFPAY ==
[2020-11-05 10:29] VITALS: BMI 28.8
[2020-11-05 12:32] LABS: Absolute Lymphocyte Count 2.06 X10^3/uL (0.83-4.51); Absolute Neutrophil Count 4.5 X10^3/uL (2.0-7.7); Basophil# 0.06 X10^3/uL; Basophil% 0.8 % (0-1); Eosinophil# 0.01 X10^3/uL; Eosinophils% 0.1 % (0-5); Hematocrit 47.5 % (37-47); Lymphocyte # 2.06 X10^3/ul (0.83-4.51); Lymphocyte % 28.6 % (19-41); Mean Corp Hgb Conc 31.6 g/dL (32-36); Mean Corpuscular Hgb 29.7 pg (27.0-32.0); Mean Corpuscular Volume 94.1 fL (81-99); Mean Platelet Vol. 12.7 fl (6.2-12.0); Monocyte# 0.56 X10^3/uL; Monocyte% 7.8 % (0-10); NRBC Flagged by Analyzer 0 % (0-5); Neutrophil # 4.49 X10^3/uL (2.7-7.7); Neutrophil % 62.4 % (47-70); Platelet Count 208 K/mm3 (150-450); RBC Distribution Width CV 13.9 % (11.6-14.6); Red Blood Count 5.05 M/mm3 (4.2-5.4); White Blood Count 7.2 K/mm3 (4.4-11.0)
[2020-11-05 13:07] LABS: ALB/GLOB Ratio 0.9 RATIO (0.9-2.4); AST(SGOT) 31 U/L (15-37); Alanine Aminotransfer ALT/SGPT 25 U/L (13-56); Albumin, Serum 3.6 g/dL (3.2-5.0); Alkaline Phosphatase 67 U/L (45-117); Anion Gap 4 (5-15); BUN 8 mg/dL (7-18); BUN/Creat Ratio 9.1 RATIO (10-20); Calcium,Total 9.1 mg/dL (8.5-10.1); Chloride 106 mmol/L (98-107); Cholesterol 136 mg/dL (200); Creatinine, Serum 0.88 mg/dL (0.55-1.02); EST Glomerular Filtration Rate 69 mL/min (>60); Est Glom Filt Rate - Afr Amer 83 mL/min (>60); Globulin 3.8 g/dL (2.2-4.2); Glucose 113 mg/dL (74-106); High Density Lipoprotein 42 mg/dL; Potassium 3.7 mmol/L (3.5-5.1); Protein, Total 7.4 g/dL (6.4-8.2); Sodium Level 141 mmol/L (136-145); Triglycerides 147 mg/dL; Very Low Density Lipoprotein 29 mg/dL (5-40)
== END ==
PROVIDERS: PCP Internal Medicine; Referring Provider Physician Assistant Medical; Visit Provider Physician Assistant Medical
DX: I25.10 Atherosclerotic heart disease of native coronary artery without angina pectoris (principal); I25.5 Ischemic cardiomyopathy; I10 Essential (primary) hypertension; E78.5 Hyperlipidemia, unspecified; Z98.890 Other specified postprocedural states
CPT/HCPCS: 36415; 80053; 80061; 85025

== ENCOUNTER → 2020-11-17 06:41 | Outpatient (CLI) | payer MEDICAID, SELFPAY ==
[2020-11-05 10:29] VITALS: BMI 28.8
--- NOTE | 2020-11-17 06:46 | ART_ITS ---
Reason For Study: Claudication Procedure A bilateral lower extremity continuous wave Doppler with analog waveform analysis,segmental pressures,and ankle brachial indexes without exercise. Left Segmental Pressures Left brachial= 140mmHg. Left posterior tibial artery = 169mmHg. Left dorsalis pedis artery = 172mmHg. Left digit = 140 mmHg. The left dorsalis pedis waveforms are triphasic. The left posterior tibial artery waveforms are triphasic. Right Segmental Pressures Right brachial= 143mmHg. Right posterior tibial artery = 170mmHg. Right dorsalis pedis artery = 185mmHg. Right digit = 118 mmHg. The right dorsalis pedis waveforms are triphasic. The right posterior tibial artery waveforms are triphasic. Indices The right ankle brachial index by the dorsalis pedis is 1.29. The right ankle brachial index by the posterior tibial artery is 1.19. The right digital-brachial index is 0.83. The left ankle brachial index by the dorsalis pedis is 1.18. The left digital-brachial index is 0.98. VL/Lower Ext Art Exam w/o Exercis Interpretation Summary Bilateral no significant occlusive disease at rest with an NOA of 1.29 on the r ight 1.2 on the left. Both with triphasic flow noted. DBI 0.83 and 0.98. Ordering Physician: Melva Estrada Referring Physician: Blanca Harris M.D. Performed By: Isabel Marinelli RVT and Student
--- NOTE | 2020-11-17 16:18 | STRESSREP_ITS ---
Stress Test Report Pharmacologic myocardial perfusion stress test. 65-year-old lady with a history of coronary artery disease status post coronary bypass surgery with a FRANCISCO to the LAD radial to the circumflex artery saphenous vein graft to the posterior descending artery and saphenous vein graft to acute marginal vessel. Stress protocol: Resting EKG demonstrates sinus bradycardia with a rate of 56 bpm. Incomplete right bundle branch block is noted. 0.4 mg of regadenoson was infused per usual protocol followed by rapid intravenous saline flush injection continuous EKG monitoring was performed. The maximum heart rate attained was 78 bpm which was 50% of maximum predicted heart rate the maximum workload was 1 metabolic equivalent. At rest there were no ST or T wave changes noted to suggest abnormal flow reserve and at peak infusion nonspecific ST changes were noted with did not meet the criteria for ischemia. The final blood pressure was 112/64 mmHg. Myocardial perfusion protocol. 11.2 mCi of technetium 99m sestamibi was injected at rest. 0.4 mg of regadenoson was infused per usual protocol. At peak infusion 33.4 mCi of technetium 99m sestamibi was injected stress images were obtained stress and rest images were reconstructed and compared in the short axis vertical long and horizontal long axis. Gated images were also obtained. Perfusion SPECT analysis: Review of the stress images demonstrate a mildly dilated cardiac silhouette size. There is a small defect noted in the apex as well as a medium size defect noted in the mid lateral wall on the stress images. The resting images demonstrate a persistent defect noted in the apex suggestive of an apical infarct and mild improvement in the lateral wall suggesting mild lateral i schemia. The rest of the serra appear to be well perfused. Gated SPECT analysis: The gated ejection fraction is 36%. Conclusion: Ischemic cardiomyopathy. Mildly abnormal stress test with evidence of mid lateral ischemia. Previous apical infarct noted.
== END ==
PROVIDERS: PCP Internal Medicine; Visit Provider Physician Assistant Medical
DX: I25.10 Atherosclerotic heart disease of native coronary artery without angina pectoris (principal); I73.9 Peripheral vascular disease, unspecified; Z95.1 Presence of aortocoronary bypass graft
CPT/HCPCS: 78452; 93017; 93923; A9500; A4216; J2785

== ENCOUNTER 2020-12-01 08:55 | Day surgery (SDC) | payer MEDICAID, SELFPAY ==
[2020-11-05 10:29] VITALS: BMI 28.8
[2020-11-28 08:39] VITALS: BMI 28.8
[2020-12-01] VITALS (16 sets, daily range): BP systolic 125–150; BP diastolic 71–91; PULSE 52–80; RESP 14–19; TEMP 36–36.6; O2SAT 93–99
--- NOTE | 2020-12-01 11:49 | CL.D_ITS ---
Patient Name: ALBERTO MASTERS Study Date: 12/01/2020 Performing: Nolan Muro MD Ht: 64.17 inches 163 cm : 1955 Wt: 167.55 lbs 76 kg Age: 65 Gender: female BSA: 1.82 PROCEDURE(S) PERFORMED PV82-LGT/COR/LV/CABG DC11-AO ROOT ANGIO WITH HEART CATH CLINICAL PROFILE AND INDICATIONS Indications: Suspected CAD Heart Failure: None Stress/Imaging Date: 11/17/20ress Test with SPECT MPI: Positive Intermediate Risk CAD Presentations: No Sxs, no angina. CONCLUSIONS Coronary artery disease noted with a patent FRANCISCO to the LAD, patent diagonal vessel with moderate dis ease, totally occluded right coronary artery, totally occluded saphenous vein graft and radial grafts . And severely diseased left circumflex artery. RECOMMENDATIONS Referred for immediate PCI DESCRIPTION OF PROCEDURE The patient arrived to the procedure lab. The risks and benefits of the procedure as well as a full d escription of our services here and current unavailability of surgical backup were fully explained to the patient and/or their significant other prior to the catheterization. The Timeout was completed, verifying the correct patient and procedure. The patient's procedural site was prepped and draped in the usual fashion. Local anesthetic was given subcutaneously to right groin region with Lidocaine 2%. Using a modified Seldinger technique, arterial access was obtained via the right femoral artery, a 5 Fr sheath was inserted. Left internal mammary artery graft to the LAD selective angiography was perf ormed in multiple views using a 5 Fr. IM catheter. Left Coronary Artery selective angiography was per formed in multiple views using a 5 Fr. JL4 catheter. Right Coronary Artery selective angiography was then performed in multiple views using a 5 Fr. 3DRC (Jose G) catheter. CORONARY ANGIOGRAPHY DOMINANCE: Right Dominant LEFT MAIN: Angiographically normal LEFT ANTERIOR DESCENDING ARTERY: MID LAD: is occluded DIAGONAL 1: Proximal - Diffusely proximally diseased and a large vessel with collateralization of the first obtuse marginal branch noted. CIRCUMFLEX ARTERY: Proximal circumflex with high-grade 80% stenosis, first obtuse marginal branch is totally occluded proximally, AV groove branch is patent and distal posterolateral branches have mild to moderate disease and collateralized with distal right coronary artery. RIGHT CORONARY ARTERY: is occluded GRAFTS: FRANCISCO graft to the Mid LAD is patent Saphenous Vein graft to the 1st OM is totally occluded Saphenous Vein graft to the RPDA is totally occluded Radial graft to the CIRC is totally occluded Aortic Root: No additional grafts noted other than the ostium of the saphenous vein graft to the post erior descending artery and saphenous vein graft to the obtuse marginal branch. AORTIC ROOT: No additional grafts noted other than the ostium of the saphenous vein graft to the posterior descend ing artery and saphenous vein graft to the obtuse marginal branch. COMPLICATIONS PROCEDURE MEDICATIONS Versed 1 mg IV Oxygen: 2 L/min via nasal cannula Heparin 5000 unit(s) IV 12/01/2020 11:33:32 SUMMARY OF HEMODYNAMIC DATA Time AIR REST ECG 09:26:15 AO 150/70 (96) SA 10:56:18 AO 141/76 (99) 11:00:32 Signed By Nolan Muro MD On 12/01/2020 11:48:22 Nolan Muro MD
--- NOTE | 2020-12-01 12:30 | EKG12_ITS ---
Test Reason : AM EKG Blood Pressure : / mmHG Vent. Rate : 053 BPM Atrial Rate : 053 BPM P-R Int : 156 ms QRS Dur : 152 ms QT Int : 518 ms P-R-T Axes : 060 097 095 degrees QTc Int : 486 ms Sinus bradycardia Right bundle branch block Abnormal ECG Confirmed by MIRTHA BERNAL, ANETA ([id number]), desk editor MYRNA CONKLIN ([id number]) on 12/03/2020 10:44:09 AM Referred By: EBTH Confirmed By:ANETA SHANNON MD
[2020-12-01 13:15] LABS: Hematocrit 41.9 % (37-47); Hemoglobin 13.7 g/dL (12.0-15.0); Mean Corp Hgb Conc 32.7 g/dL (32-36); Mean Corpuscular Hgb 30.5 pg (27.0-32.0); Mean Corpuscular Volume 93.3 fL (81-99); Mean Platelet Vol. 11.1 fl (6.2-12.0); Platelet Count 206 K/mm3 (150-450); RBC Distribution Width CV 13.7 % (11.6-14.6); RBC Distribution Width SD 46.8 fl (35.1-43.9); Red Blood Count 4.49 M/mm3 (4.2-5.4); White Blood Count 6.8 K/mm3 (4.4-11.0)
--- NOTE | 2020-12-01 14:10 | CRPHASE1_ITS ---
Patient Communication PHII Cardiac Rehab Discussed with Patient:: Yes Guide to Cardiac Rehab Given to Patient:: Yes Cardiac Rehab Facility Choice List Given to Patient:: Yes Choice Program [facility] CR PHII:: Communication Given to CR Choice Program Other:: Communication Given to CR Dairy Technician:: Donis Parker Refer Phase II Cardiac Rehab:: Yes Sessions:: 36 sessions - 3 days/wk, 12 weeks Cardiac Rehabilitation Info Cardiac Rehabilitation Program Information: Cardiac Rehabilitation is important for patients like you who are recovering from a heart problem. Cardiac rehabilitation programs are recognized as integral to the continued care of the patient with coronary heart disease. The cardiac rehabilitation program is designed to optimize a patient's physical, psychological, and social functioning. Health career development director work in cardiac rehabilitation programs and assist you with getting the treatments you need to get stronger and healthier - like exercise, healthy eating habits, and medications. Cardiac rehabilitation has been show to help people with heart problems live longer and have better life enjoyment than people who do not go to cardiac rehabilitation. Please contact the Cardiac Rehabilitation Program at [facility] at in two weeks if you have not heard from them.
--- NOTE | 2020-12-01 14:11 | CRPH1.INSTRU ---
General Education CAD and cardiac anatomy and function:: Patient communicates acknowledgment Explanation of diagnoses and procedures:: Patient communicates acknowledgment Sign/Symptoms of IA:: Patient communicates acknowledgment Antiplatelet therapy: Patient communicates acknowledgment Smoking Patient Nicotine/Smoking Risk Factors Are:: Cigarettes Recommendations Include:: Smoking cessation strategies/Smoking packet, Participation in a smoking cessation program Nicotine/Smoking Response Code:: Patient communicates acknowledgment Dyslipidemia Patient Dyslipidemia Risk Factors Are:: Total Cholesterol, Triglycerides, HDL, LDL Recommendations Include:: Lipid profile provided, Reviewed NCEP/ATP guidelines, Therapeutic Lifestyle Change dietary guidelines Dyslipidemia Response Code:: Patient communicates acknowledgment Overweight/Obesity Patient Overweight/Obesity Risk Factors Are:: BMI Normal [18-25 & < 65 years old] Hypertension Recommendations Include:: BP <130/80 if diabetic, DASH dietary guidelines, Decrease/maintain normal body weight, Moderation of ETOH Hypertension:: Patient communicates acknowledgment Heart Disease Patient Heart Disease Risk Factors Are:: Family history of heart disease < 65 years old, Previous cardiac event Recommendations Include:: Educated family members of their risk Heart Disease Response Code:: Patient communicates acknowledgment Diabetes Patient Diabetes Risk Factors Are:: Elevated blood sugars, Post-op hyperglycemia Recommendations Include:: Maintain fasting blood sugars 70-110 md/dL, Maintain HgbA1c of 6% or less, Monitor blood sugar as prescribed, Diabetic dietary guidelines, Decrease/maintain body weight Diabetes:: Patient communicates acknowledgment Metabolic Syndrome Patient Metabolic Syndrome Risk Factors Are [3 of 5]:: Fasting blood sugar > 100 mg/dL, Hypertension Recommendations Include:: Reinforce compliance to risk factor modifications, Patient is diabetic, Encouraged follow-up with Primary Care Physician Metabolic Syndrome Response Code:: Patient communicates acknowledgment Sedentary Patient Sedentary Risk Factors Are:: Lack of regular exercise Recommendations Include:: Aerobic exercise 5-7 times/week for 20-30 minutes continuously, Benefits of regular exercise, Discussed home walking program, Monitored Outpatient Cardiac Rehab Sedentary Response Code:: Patient communicates acknowledgment Stress Recommendations Include:: Identification of stressors, and assessment of coping skills, Stress management techniques Stress Response Code:: Patient communicates acknowledgment
--- NOTE | 2020-12-01 17:35 | NURSING ---
assisted pt to BSC with help of MACHINIST 2ND SHIFT. Heart cath site c/d/i, no more signs of bleeding.
[2020-12-01] MEDS: TICAGRELOR 90 MG TABLET PO (21:09)
[2020-12-02 02:59] VITALS: PULSE 53
[2020-12-02 03:05] VITALS: BP 142/63; PULSE 53; RESP 14; TEMP 36.4; O2SAT 98
--- NOTE | 2020-12-02 06:41 | PN.CARD_ITS ---
Subjective Subjective Patient seen and evaluated. Appears to be doing well. Objective Data Vital Signs: Vital Signs Temp Pulse Resp BP Pulse Ox 97.5 F L 53 L 14 142/63 H 98 12/02/20 03:05 12/02/20 03:05 12/02/20 03:05 12/02/20 03:05 12/02/20 03:05 Oxygen Delivery Method Room Air Weight: 161 lb 9.581 oz Body Mass Index (BMI) 28.8 Intake & Output: Intake and Output for Last 24 Hours 11/30/20 12/01/20 12/02/20 23:59 23:59 23:59 Intake Total 960 / 960 200 / 200 Output Total 350 / 350 Balance 610 / 610 200 / 200 Lab / Micro Data Result Diagrams: 12/01/20 13:05 Labs: Laboratory Results - last 24 hr 12/01/20 13:05 WBC 6.8 RBC 4.49 Hgb 13.7 Hct 41.9 MCV 93.3 MCH 30.5 MCHC 32.7 RDW Std Deviation 46.8 H RDW Coeff of Chris 13.7 Plt Count 206 MPV 11.1 Cardiology Labs/Tests 12/01/20 13:05: WBC 6.8, RBC 4.49, Hgb 13.7, Hct 41.9, MCV 93.3, MCH 30.5, MCHC 32.7, Plt Count 206, MPV 11.1 Rhythm: EKG: ECHO: Stress Test: Cardiac Cath: PCI: CT Surgery: Holter monitor: EPS: PPM: CXR: Chest CT Scan: Physical Exam Const oriented x3 and healthy appearing Orientation / Consciousness: awake HEENT normocephalic Eyes PERRL and conjunctivae normal Neck supple, no JVD and no carotid bruits Chest inspection of chest normal Resp normal respiratory effort and clear to auscultation bilaterally Cardio Palpation: normal PMI Rate: regular rate Rhythm: regular rhythm Heart Sounds: S1 normal and S2 normal Peripheral Pulses: pulses 2+ throughout GI normal to inspection, nondistended, normoactive bowel sounds Extremity normal to inspection and no clubbing, cyanosis or edema Psych mental status grossly normal Assessment & Plan Assessment/Plan (1) History of coronary artery stent placement: PLAN: Patient is status post angioplasty and stenting of the proximal circ umflex artery. Patient did well overnight. Will be discharged for outpatient follow-up. Continue current medications as well as Brilinta. (2) H/O coronary artery bypass surgery: PLAN: Patient is status post coronary bypass surgery as noted above with occluded saphenous vein and radial grafts. We will continue with aggressive medical management
[2020-12-02 06:45] LABS: Hematocrit 40.7 % (37-47); Hemoglobin 13.3 g/dL (12.0-15.0); Mean Corp Hgb Conc 32.7 g/dL (32-36); Mean Corpuscular Hgb 30.2 pg (27.0-32.0); Mean Corpuscular Volume 92.3 fL (81-99); Mean Platelet Vol. 11.9 fl (6.2-12.0); Platelet Count 193 K/mm3 (150-450); RBC Distribution Width CV 13.6 % (11.6-14.6); RBC Distribution Width SD 46.4 fl (35.1-43.9); Red Blood Count 4.41 M/mm3 (4.2-5.4); White Blood Count 9.1 K/mm3 (4.4-11.0)
[2020-12-02 07:34] VITALS: O2SAT 97
[2020-12-02 07:47] VITALS: PULSE 63
[2020-12-02 07:47] LABS: AST(SGOT) 23 U/L (15-37); Alanine Aminotransfer ALT/SGPT 18 U/L (13-56); Alkaline Phosphatase 49 U/L (45-117); Anion Gap 8 (5-15); BUN 18 mg/dL (7-18); BUN/Creat Ratio 25.6 RATIO (10-20); Calcium,Total 8.4 mg/dL (8.5-10.1); Chloride 107 mmol/L (98-107); EST Glomerular Filtration Rate 89 mL/min (>60); Est Glom Filt Rate - Afr Amer 108 mL/min (>60); Estimated Creatinine Clearance 70.11 ml/min; Globulin 3.1 g/dL (2.2-4.2); Glucose 79 mg/dL (74-106); Potassium 3.9 mmol/L (3.5-5.1); Protein, Total 6.1 g/dL (6.4-8.2); Sodium Level 139 mmol/L (136-145)
[2020-12-02 09:15] VITALS: BP 137/76; PULSE 76; RESP 16; TEMP 36.4; O2SAT 97
[2020-12-02] MEDS: TICAGRELOR 90 MG TABLET PO (09:20)
--- NOTE | 2020-12-02 10:00 | EKG12_ITS ---
Test Reason : S\P PCI Blood Pressure : / mmHG Vent. Rate : 052 BPM Atrial Rate : 052 BPM P-R Int : 160 ms QRS Dur : 152 ms QT Int : 490 ms P-R-T Axes : 053 095 148 degrees QTc Int : 455 ms Sinus bradycardia with occasional Premature ventricular complexes Right bundle branch block Nonspecific T wave abnormality Abnormal ECG Confirmed by MIRTHA BERNAL, ANETA ([id number]), general expeditor MYRNA CONKLIN ([id number]) on 12/03/2020 10:45:43 AM Referred By: BETH Confirmed By:ANETA SHANNON MD
--- NOTE | 2020-12-02 10:26 | CASEMGMT ---
Pt to be sent home on [employer] and call to [employer] to check coverage/co-pay. Call to [employer] and per tech, pt has no co-pay. Evan BURNS CM
--- NOTE | 2020-12-02 10:46 | PHA.DC.MC ---
Pharmacy Service has performed discharge medication reconciliation and counseling for this patient. 1. TICAGRELOR 90MG PO BID The patient's discharge medication list was reviewed for discrepancies and discrepancies were resolved. Home Medications amlodipine 5 mg PO DAILY 03/20/17 aspirin 81 mg PO DAILY 03/20/17 atorvastatin 80 mg PO QHS 03/20/17 lisinopril 10 mg PO DAILY 03/20/17 albuterol sulfate 1 - 2 puff INHALATION Q4H PRN PRN #1 inhaler 03/31/17 metoprolol tartrate 25 mg PO DAILY 02/07/20 cholecalciferol (vitamin D3) 50 mcg (2,000 unit) capsule 50 mcg PO DAILY 04/16/20 ticagrelor 90 mg tablet 90 mg PO BID #180 tab 12/02/20 The patient was counseled on the following discharge medications and changes in medications for homegoing were reviewed. The Reason for Use, instructions for use, and potential side effects were reviewed for all new medications. The patient's questions regarding all of their medications were answered. The patient was able to verbally demonstrate an understanding of their discharge medications.
--- NOTE | 2020-12-02 11:20 | DCINST_ITS ---
Discharge Instructions Follow Up Care Test Results: Test results from this visit will be discussed in further detail at your follow-up appointment, if applicable. Discharge Plan Admission Primary Reason for Your Visit: Outpatient C Attending Provider: Nolan Muro Primary Care Provider: Amira Smith Primary Instructions Patient Instructions: CAD, Coronary Angioplasty Stenting Dc, Eating Heart- Healthy Foods Additional Instructions / Restrictions: Continue with a low-fat diet. Do not lift anything greater than 10 pounds for 3 days. Please continue to monitor right lower extremity for numbness, tingling, paleness, or worsening pain. Please continue to watch groin site for worsening bruising or drainage. Please contact that was to heart group office at [phone] if there are any questions or concerns. Discharge Orders/Prescriptions Prescriptions: Continued cholecalciferol (vitamin D3) 50 mcg (2,000 unit) capsule 50 mcg PO DAILY RF: 0 atorvastatin 80 MG tablet 80 mg PO QHS RF: 0 amlodipine 5 MG tablet 5 mg PO DAILY RF: 0 lisinopril 10 MG tablet 10 mg PO DAILY RF: 0 aspirin 81 MG tablet,chewable 81 mg PO DAILY RF: 0 albuterol sulfate 1 INHALER inhaler 1 - 2 puff INHALATION Q4H PRN PRN (Reason: Wheezing) Qty: 1 RF: 0 metoprolol tartrate 25 MG tablet 25 mg PO DAILY RF: 0 Brilinta 90 mg tablet 90 mg PO BID Qty: 180 RF: 3 Referrals / Follow Up: Care Physician,Amira Primary [Primary Care Provider] - Choco Regalado NP, [employer] [Nurse Practitioner] - 12/29/20 10:30 am Disposition Disposition (needs filled in before D/C Order can be placed): Home, Self Care
--- NOTE | 2020-12-02 11:24 | DCINST_ITS ---
Discharge Instructions Diet Discharge Diet: Low fat / Low cholesterol Activity Discharge Activity: Return to Normal Activity May shower in (days): 1 May resume sexual activity in: 1-2 weeks Lifting Restrictions: Do not lift anything greater than 10 pounds for 3 days Dressing / Incision Call your doctor if your incision/area has: Continuous Slow Oozing, Sudden Increased Bleeding, Increased Pain/ Swelling, Increased Redness, Foul Smelling Discharge and Swelling at the incision site Call your doctor if you observe: Fever of 101 or Higher, Shortness of breath and Chest pain Remove Dressing in: 1 day Cleanse incision/area with: Soap & Water Follow Up Care Please Follow Up With: Choco Regalado NP, [facility] When: 12/29/2020 at 10:30 AM Test Results: Test results from this visit will be discussed in further detail at your follow-up appointment, if applicable. Discharge Plan Admission Primary Reason for Your Visit: Outpatient [facility] Attending Provider: Nolan Muro Primary Care Provider: Care Physician,Amira Primary Instructions Patient Instructions: CAD, Coronary Angioplasty Stenting Dc, Eating Heart- Healthy Foods Additional Instructions / Restrictions: Continue with a low-fat diet. Do not lift anything greater than 10 pounds for 3 days. Please continue to monitor right lower extremity for numbness, tingling, paleness, or worsening pain. Please continue to watch groin site for worsening bruising or drainage. Please contact that was to heart group office at [phone] if there are any questions or concerns. Discharge Orders/Prescriptions Prescriptions: Continued cholecalciferol (vitamin D3) 50 mcg (2,000 unit) capsule 50 mcg PO DAILY RF: 0 atorvastatin 80 MG tablet 80 mg PO QHS RF: 0 amlodipine 5 MG tablet 5 mg PO DAILY RF: 0 lisinopril 10 MG tablet 10 mg PO DAILY RF: 0 aspirin 81 MG tablet,chewable 81 mg PO DAILY RF: 0 albuterol sulfate 1 INHALER inhaler 1 - 2 puff INHALATION Q4H PRN PRN (Reason: Wheezing) Qty: 1 RF: 0 metoprolol tartrate 25 MG tablet 25 mg PO DAILY RF: 0 Brilinta 90 mg tablet 90 mg PO BID Qty: 180 RF: 3 Referrals / Follow Up: Care Physician,No Primary [Primary Care Provider] - Choco Regalado NP, [facility] [Nurse Practitioner] - 12/29/20 10:30 am Disposition Disposition (needs filled in before D/C Order can be placed): Home, Self Care
[2020-12-02 11:45] VITALS: BP 147/78; PULSE 86; RESP 18; TEMP 36.4; O2SAT 95
--- NOTE | 2020-12-03 09:44 | CL.I_ITS ---
Patient Name: ALBERTO MASTERS Study Date: 12/01/2020 Performing: Malissa Parker MD Ht: 64 inches 163 cm : 1955 Wt: 167.8 lbs 76 kg Age: 65 Gender: female BSA: 1.82 PROCEDURE(S) PERFORMED DC11-AO ROOT ANGIO WITH HEART CATH ZS24-LNT W OR WO PTCA, SINGLE CORONARY ARTERY CLINICAL PROFILE AND CO-MORBIDITIES Indications: Suspected CAD Heart Failure: None Stress/Imaging Date: 11/17/20 Stress Test with SPECT MPI: Positive Intermediate Risk CAD Presentations: No Sxs, no angina. CONCLUSIONS Successful RAFAELA to pLCx RECOMMENDATIONS DESCRIPTION OF PROCEDURE The patient arrived to the procedure lab. The risks and benefits of the procedure as well as a full d escription of our services here and current unavailability of surgical backup were fully explained to the patient and/or their significant other prior to the catheterization. The Timeout was completed, verifying the correct patient and procedure. The patient's procedural site was prepped and draped in the usual fashion. Local anesthetic was given subcutaneously to right groin region with Lidocaine 2% Using a modified Seldinger technique,arterial access was obtained via the right femoral artery, a 5Fr sheath was inserted. Left internal mammary artery graft to the LAD selective angiography was perform ed in multiple views using a 5 Fr. IM catheter. Left Coronary Artery selective angiography was perfor med in multiple views using a 5 Fr. JL4 catheter. Right Coronary Artery selective angiography was the n performed in multiple views using a 5 Fr. 3DRC (Jose G) catheter.The images were reviewed and options discussed. A decision was then made to proceed with an Intervention, IVUS or oth er adjunct procedure. Arterial sheath was exchanged for a 6 Fr Sheath. xb 3.5 Guide catheter was inserted and engaged i nto the LCA. bmw Guide wire was advanced to the Circumflex. emerge 3.5 x 15 Balloon catheter was adva nced across lesion in the circumflex, proximal. PTCA balloon inflated at 6 atms for 9 secs. PTCA ball oon inflated at 8 atms for 15 secs. PTCA balloon inflated at 10 atms for 17 secs. PTCA balloon inflat ed at 6 atms for 9 secs. PTCA balloon inflated at 6 atms for 5 secs. PTCA balloon inflated at 8 atms for 10 secs. Angiogram performed post balloon dilatation. osiro 3.5 x 18 Drug Eluting stent was advan it[place] across the lesion in the circumflex, proximal. Angiogram performed post stent deployment. emerge nc 4.00 x 12 Balloon catheter was inserted post stent. Angiogram performed post balloon dilatation. C ontrast was injected through the sheath and the Right Iliac and Femoral artery were assessed for poss ible closure device. The arterial sheath was pulled and a Perclose closure device was deployed for hemostasis INTERVENTION INFORMATION LESION SITE: Circumflex (Proximal) Lesion Complexity: High/C, chronic total occlusion: No, lesion at bifurcation: Yes, thrombus present: No, lesion length: 12 mm, culprit lesion: Yes, Previously treated lesion: No Pre Stenosis: 90 % Pre intervention KIRAN flow: 3 PROCEDURE: Drug Eluting Stent with pre and post dilatation Post Stenosis: 0 % Post intervention KIRAN flow: 3 Lesion Devices: Dudley .014 [employer] [place] Straight 190cm Cardinal 6 Fr XB3.5 100cm Guide Catheter Bebeto Sci EMERGE MR 3.50x15 BALLOON Bebeto Sci NC EMERGE MR 4.00x12 BALLOON COMPLICATIONS No Complications PROCEDURE MEDICATIONS Versed 1 mg IV Oxygen: 2 L/min via nasal cannula Brilinta 180 mg PO @ 12/01/2020 12:13:48 Heparin 5000 unit(s) IV 12/01/2020 11:33:32 SUMMARY OF HEMODYNAMIC DATA Time AIR REST ECG 09:26:15 AO 150/70 (96) SA 10:56:18 AO 141/76 (99) 11:00:32 Signed By Malissa Parker MD On 12/03/2020 09:43:36 Malissa Parker MD
== END 2020-12-02 12:15 | disposition home or self-care (01) ==
LOC: CLSP 08:56 → PCU 13:34
PROVIDERS: Specialist; Visit Provider Internal Medicine Cardiovascular Disease
DX: I25.10 Atherosclerotic heart disease of native coronary artery without angina pectoris (principal); I25.82 Chronic total occlusion of coronary artery; I25.5 Ischemic cardiomyopathy; I10 Essential (primary) hypertension; E78.5 Hyperlipidemia, unspecified; I73.9 Peripheral vascular disease, unspecified; F17.210 Nicotine dependence, cigarettes, uncomplicated; Z98.890 Other specified postprocedural states; Z95.1 Presence of aortocoronary bypass graft
CPT/HCPCS: 36415; 80053; 85027; 92928; 93005; 93459; 93567; 99152; 99153; J7040; Q9967; C1725; C1760; C1769; C1874; C1887; C9600; J1327

== ENCOUNTER 2022-03-18 14:18 | Emergency (ER) | payer MEDICAID, SELFPAY ==
[2022-03-18 14:19] VITALS: BP 154/77; PULSE 76; RESP 18; TEMP 35.4; O2SAT 96; BMI 26.7
--- NOTE | 2022-03-18 15:20 | RAD_ITS ---
STUDY: X-RAY CHEST REASON FOR EXAM: Female, 67 years old. 4 day history of cough and shortness of breath. TECHNIQUE: Single AP portable view of the chest. COMPARISON: Comparison is made with prior examination dated 02/07/2020. FINDINGS: Mild degree of vascular congestion. There is no demonstrated pleural abnormality. Sternal cerclage wires and vascular clips are present from a prior sternotomy and coronary artery bypass graft procedure (CABG). Moderate cardiomegaly. Normal mediastinum and keon. Normal visualized pulmonary arteries. Normal visualized aortic arch and descending thoracic aorta. There are diffuse degenerative changes of the visualized thoracic spine. Normal visualized ribs, clavicles, and shoulders. There is no demonstrated abnormality of the visualized soft tissue structures of the upper abdomen. RAD/Chest 1 View (Portable) IMPRESSION: Mild degree of vascular congestion and cardiomegaly. Electronically Signed: Coleman Tipton MD at 15:43 EDT ,
[2022-03-18 15:46] LABS: Absolute Neutrophil Count 6.9 X10^3/uL (2.0-7.7); Basophil# 0.05 X10^3/uL; Basophil% 0.5 % (0-1); Eosinophil# 0.09 X10^3/uL; Hematocrit 45.2 % (37-47); Hemoglobin 14.8 g/dL (12.0-15.0); Lymphocyte % 20.1 % (19-41); Mean Corp Hgb Conc 32.7 g/dL (32-36); Mean Corpuscular Hgb 31.2 pg (27.0-32.0); Mean Corpuscular Volume 95.2 fL (81-99); Mean Platelet Vol. 11.2 fl (6.2-12.0); Monocyte# 0.49 X10^3/uL; Monocyte% 5.2 % (0-10); NRBC Flagged by Analyzer 0 % (0-5); Neutrophil # 6.86 X10^3/uL (2.7-7.7); Neutrophil % 72.8 % (47-70); Platelet Count 231 K/mm3 (150-450); RBC Distribution Width CV 14.6 % (11.6-14.6); RBC Distribution Width SD 51.3 fl (35.1-43.9); Red Blood Count 4.75 M/mm3 (4.2-5.4); White Blood Count 9.4 K/mm3 (4.4-11.0)
--- NOTE | 2022-03-18 15:51 | EDS_ITS ---
HPI History of Present Illness Chief Complaint: Shortness of Breath Informant: patient and EMS Onset/Context/Timing Onset: Days (4) Context: gradual Timing: Intermittent Quality: Positive for Dyspnea on exertion and Wheezing Current Severity: Mild Maximum Severity: Moderate Worsened by: Exertion and Coughing; Not Worsened By Lying flat Relieved by: Albuterol (duneb given by EMS) Associated Symptoms cough Chest Pain: Positive for None Narrative Narrative: Patient with cough and shortness of breath, some chills but she did not measure any temperatures for the past 4 days. Coughing up cagle sputum, she does not usually do that, no hemoptysis. No chest pain, she is having some rib soreness only when she coughs, it is bilateral anterior axillary anterior ribs. She denies any GI symptoms. No myalgias. No known exposure to anyone else who has been ill including COVID. She did not test her self, this is the first time she is seen a healthcare provider. Said today the dyspnea was a little worse. It was significantly helped by duo nebulizer treatment that EMS gave her in route. She has COPD, she continues to smoke but states after this I am quitting. She is not on home oxygen. [facility] Medical History Anxious depression Arthritis Atherosclerotic heart disease of [place] coronary artery without angina pectoris Bradycardia Chronic combined systolic and diastolic CHF (congestive heart failure) Chronic sinusitis COPD (chronic obstructive pulmonary disease) Essential (primary) hypertension History of back problems HLD (hyperlipidemia) Hypokalemia Hypophosphatemia Ischemic cardiomyopathy Ischemic mitral valve regurgitation Long QT interval (03/2017) Mixed obstructive and restrictive ventilatory defect Multiple premature ventricular complexes Nicotine dependence Obstructive sleep apnea Old inferior wall myocardial infarction (12/22/04) Right bundle branch block (RBBB) Right upper quadrant abdominal pain Secondary pulmonary arterial hypertension Tobacco abuse Type 2 diabetes mellitus Home Medications amlodipine 5 mg tablet 5 mg PO DAILY 03/20/17 [History Last Taken 12/01/20] aspirin 81 mg chewable tablet 81 mg PO DAILY 03/20/17 [History Last Taken 12/01/20] atorvastatin 80 mg tablet 80 mg PO QHS 03/20/17 [History Last Taken Unknown] lisinopril 10 mg tablet 10 mg PO DAILY 03/20/17 [History Last Taken 06/28/21] albuterol sulfate 90 mcg/actuation aerosol inhaler 1 - 2 puff inhalation Q4H PRN PRN Wheezing ##1 03/31/17 [Rx Last Taken Unknown] cholecalciferol (vitamin D3) 50 mcg (2,000 unit) capsule 50 mcg PO DAILY 04/16/20 [History Last Taken Unknown] metoprolol succinate 25 mg tablet,extended release 24 hr 25 mg PO DAILY 08/18/21 [History Last Taken Unknown] ticagrelor 90 mg tablet (Brilinta) 90 mg PO BID #180 tabs 11/03/21 [Rx Last Taken Unknown] doxycycline monohydrate 100 mg capsule 100 mg PO BID #14 CAPSULES 03/18/22 [Rx Last Taken Unknown] prednisone 10 mg tablet 10 mg PO UD #33 tabs 03/18/22 [Rx Last Taken Unknown] Allergy/AdvReac Type Severity Reaction Status Date / Time No Known Allergies Allergy Verified 03/18/22 14:19 Family History Mother Hypertension Father Heart disease Surgical History H/O coronary artery bypass surgery (12/29/04) History of appendectomy History of section History of coronary artery stent placement (12/01/20) History of left heart catheterization (12/22/04) History of mitral valve repair (12/29/04) Social History Smoking Status: Heavy Smoker (>10/day) second hand exposure: Yes quit status: has quit before alcohol intake: current alcohol intake frequency: a few times a month Alcohol type: hard liquor substance use type: does not use caffeine: Yes Type: coffee Number of servings: 2 what type of physical activity do you participate in: walking seatbelt use: always ROS ROS ED Constitutional Constitutional ED: Reports chills; Denies fever(s) or weakness Eyes Eyes: Denies change in vision or diplopia ENT ENT ED: Reports nasal congestion; Denies ear discharge, ear pain, headache(s), rhinorrhea, sinus pain or sore throat Cardiovascular Cardiovascular: Denies chest pain, leg edema, lightheadedness, orthopnea or palpitations Respiratory/Chest Respiratory/Chest: Reports cough, dyspnea, dyspnea on exertion and sputum; Denies orthopnea Gastrointestinal Gastrointestinal: Denies abdominal pain, diarrhea, nausea or vomiting Genitourinary Genitourinary ED: Denies dysuria or hematuria Musculoskeletal Musculoskeletal: Denies back pain or neck pain Integumentary Denies abscess or rash Neurologic Neurologic: Denies headache(s), paresthesias or weakness Psychiatric Psychiatric: Denies anxiety or suicidal thoughts EXAM Physical Exam Const Vital Signs: 03/18/22 14:19 03/18/22 15:41 03/18/22 16:16 Temperature 95.7 F L Temperature Source Temporal Pulse Rate 76 96 Respiratory Rate 18 16 Respiratory Effort Normal Non-Labored Respiratory Depth Normal Respiratory Pattern Normal Normal Blood Pressure 154/77 H Blood Pressure Mean 102 Pulse Ox 96 Oxygen Delivery Method Room Air 03/18/22 17:10 Temperature Temperature Source Pulse Rate 79 Respiratory Rate 14 Respiratory Effort Respiratory Depth Respiratory Pattern Blood Pressure 132/60 H Blood Pressure Mean 84 Pulse Ox 95 Oxygen Delivery Method Room Air Positive well nourished and well developed General Appearance ED: well developed and NAD HEENT Reports moist mucous membranes HEENT Narrative: No sinus tenderness normocephalic and atraumatic Eyes PERRL and EOMs intact bilaterally Neck full ROM, no lymphadenopathy, supple and no JVD Resp normal respiratory effort Auscultation: wheezes expiratory wheezes (mild, end-exp) and throughout; Negative for crackles, rales or rhonchi Cardio regular rate, regular rhythm and no murmurs Rate: Negative for tachycardic GI non-tender and non-distended Auscultation: normoactive bowel sounds Palpation: soft Back/Spine no CVA tenderness General Back: other FROM Extremity normal to inspection, no calf tenderness and no pedal edema General Extremety ED: Negative for edema, pulses abnormal or tenderness General Extremity: Negative for edema or pulses abnormal Neuro oriented x3, CN's II-XII intact bilaterally and no sensory deficits noted Sensorium / Orientation: awake and alert Motor Exam: strength 5/5 throughout Skin no rashes or lesions noted and no wounds MDM MDM MDM Narrative Medical decision making narrative: Patient better with beta agonist, feels like this is her COPD, and her history and exam are consistent with her COPD. No signs of pneumonia, she is not hypoxic. She feels better further after nebulizer treatments. COVID is negative. Chest x-ray may show a degree of vascular congestion, she does not appear to be on a diuretic I am giving her a dose here in addition to Solu- Medrol, she wants to go home, she was offered admission and declined. She is breathing well and ambulatory without hypoxemia. Will discharge her treating her for COPD exacerbation with prednisone and doxycycline, advised to follow-up with her doctor she is comfortable with that plan. Lab Data Attestation: I reviewed the patient's lab results. Labs: Laboratory Results - last 24 hr 03/18/22 03/18/22 15:30 15:30 WBC 9.4 RBC 4.75 Hgb 14.8 Hct 45.2 MCV 95.2 MCH 31.2 MCHC 32.7 RDW Std Deviation 51.3 H RDW Coeff of Chris 14.6 Plt Count 231 MPV 11.2 Immature Gran % (Auto) 0.400 Neut % (Auto) 72.8 H Lymph % (Auto) 20.1 [place] % (Auto) 5.2 Eos % (Auto) 1.0 Baso % (Auto) 0.5 Absolute Neuts (auto) 6.9 Absolute Lymphs (auto) 1.90 Nucleated RBC % 0 Sodium 140 Potassium 3.8 Chloride 106 Carbon Dioxide 29.0 Anion Gap 5 BUN 9 Creatinine 0.75 Estim Creat Clear Calc 47.79 Est GFR (MDRD) Af Amer 100 Est GFR (MDRD) Non-Af 82 BUN/Creatinine Ratio 12.0 Glucose 121 H Calcium 9.5 Radiography Chest X-Ray - ED: 1 View, Read by ED Physician, Cardiomegaly and No Infiltrates Diagnostic Testing: Clinical Impression(s) from Imaging Studies Chest X-Ray 03/18/22 15:20 IMPRESSION: Mild degree of vascular congestion and cardiomegaly. Electronically Signed: Coleman Tipton MD at 15:43 EDT , Discharge Plan Triage Chief Complaint: Shortness of Breath ED Provider: Marques Kramer Dx/Rx/DC Orders Clinical Impression: Acute exacerbation of chronic obstructive pulmonary disease, Chronic combined systolic and diastolic CHF (congestive heart failure) Instructions: ED COPD Flare Prescriptions: New prednisone 10 mg tablet 10 mg PO UD Qty: 33 0RF Rx Instructions: Take 4 tablets daily for 3 days, then 3 daily for 3 days, then 2 daily for 3 days, then 1 a day for 3 days then 1 QOD for 3 doses. doxycycline monohydrate 100 mg capsule 100 mg PO BID Qty: 14 0RF No Action cholecalciferol (vitamin D3) 50 mcg (2,000 unit) capsule 50 mcg PO DAILY metoprolol succinate 25 mg tablet extended release 24 hr 25 mg PO DAILY atorvastatin 80 MG tablet 80 mg PO QHS Label Comments: amlodipine 5 MG tablet 5 mg PO DAILY Label Comments: lisinopril 10 MG tablet 10 mg PO DAILY Label Comments: aspirin 81 MG tablet,chewable 81 mg PO DAILY albuterol sulfate 1 INHALER inhaler 1 - 2 puff INHALATION Q4H PRN PRN (Reason: Wheezing) Qty: 1 0RF Brilinta 90 mg tablet 90 mg PO BID Qty: 180 3RF Primary Care Provider: Blanca Harris Referrals: Blanca Harris MD [Primary Care Provider] - 3-5 Days if not improving Disposition Disposition: Home, Self Care
[2022-03-18] MEDS: MethylPREDNISolone 125 MG/2 ML Vial IV (16:00)
[2022-03-18 16:01] LABS: Anion Gap 5 (5-15); BUN 9 mg/dL (7-18); Calcium,Total 9.5 mg/dL (8.5-10.1); Chloride 106 mmol/L (98-107); Creatinine, Serum 0.75 mg/dL (0.55-1.02); EST Glomerular Filtration Rate 82 mL/min (>60); Est Glom Filt Rate - Afr Amer 100 mL/min (>60); Estimated Creatinine Clearance 47.79 ml/min; Glucose 121 mg/dL (74-106); Potassium 3.8 mmol/L (3.5-5.1); Sodium Level 140 mmol/L (136-145)
[2022-03-18] MEDS: Albuterol 2.5 MG/3 ML VIAL.NEB. INHALATION ×2 (16:12)
[2022-03-18 16:16] VITALS: PULSE 96; RESP 16
[2022-03-18 17:00] VITALS: O2SAT 95
[2022-03-18] MEDS: Furosemide 20 MG/2 ML VIAL IV (17:07)
[2022-03-18 17:10] VITALS: BP 132/60; PULSE 79; RESP 14; O2SAT 95
== END 2022-03-18 18:01 | disposition home or self-care (01) ==
PROVIDERS: Emergency Provider Emergency Medicine; PCP Internal Medicine; Visit Provider Emergency Medicine
DX: J44.1 Chronic obstructive pulmonary disease with (acute) exacerbation (principal); I11.0 Hypertensive heart disease with heart failure; I50.42 Chronic combined systolic (congestive) and diastolic (congestive) heart failure; I25.10 Atherosclerotic heart disease of native coronary artery without angina pectoris; I25.2 Old myocardial infarction; E78.5 Hyperlipidemia, unspecified; F17.200 Nicotine dependence, unspecified, uncomplicated; Z95.1 Presence of aortocoronary bypass graft; Z95.5 Presence of coronary angioplasty implant and graft; Z79.82 Long term (current) use of aspirin; Z79.899 Other long term (current) drug therapy
CPT/HCPCS: 71045; 80048; 85025; 87811; 94640; 96374; 96375; 99285; A4216; J1940

== ENCOUNTER → 2022-03-25 | Outpatient (CLI) | payer MEDICAID, SELFPAY ==
[2022-03-25 16:00] LABS: AST(SGOT) 20 U/L (15-37); Alanine Aminotransfer ALT/SGPT 31 U/L (13-56); Albumin, Serum 3.6 g/dL (3.2-5.0); Alkaline Phosphatase 53 U/L (45-117); Bilirubin, Direct 0.18 mg/dL (0.00-0.30); Cholesterol 144 mg/dL (200); Globulin 3.8 g/dL (2.2-4.2); High Density Lipoprotein 66 mg/dL; Protein, Total 7.4 g/dL (6.4-8.2); Triglycerides 134 mg/dL; Very Low Density Lipoprotein 27 mg/dL (5-40)
== END | disposition home or self-care (01) ==
LOC: LAB 13:55
PROVIDERS: PCP Internal Medicine; Referring Provider Physician Assistant Medical; Visit Provider Physician Assistant Medical
DX: E78.00 Pure hypercholesterolemia, unspecified (principal)
CPT/HCPCS: 36415; 80061; 80076

== ENCOUNTER 2022-11-01 19:35 | Emergency (ER) | payer MEDICAID, SELFPAY ==
[2022-11-01 19:36] VITALS: BP 127/73; PULSE 78; RESP 16; TEMP 37.3; O2SAT 98; BMI 26.3
[2022-11-01] MEDS: Loratadine 10 MG Tablet PO (21:44)
[2022-11-01] MEDS: Ipratropium/Albuterol Sulfate 3 ML AMPUL.NEB INHALATION (21:46)
[2022-11-01 21:47] VITALS: PULSE 80; RESP 16
--- NOTE | 2022-11-01 22:05 | EX.ED.DYSGE1 ---
HPI History of Present Illness Chief Complaint: General Illness Narrative Narrative: 67-year-old female presenting with nasal congestion. She has a history of seasonal allergy is having a flare of this. Is been ongoing since Tuesday she states that with her nasal drainage she is coughing a lot because of postnasal drip. She denies fever, chills. She denies production of sputum. She does not have any chest pain. She states that she is on some kind of not cough medicine for allergies but she does not know if it is an alcohol for Zyrtec or for Claritin. She states she cannot afford any medications unless she gets a prescription because she does not get paid until next week. [facility] Medical History Anxious depression Arthritis Atherosclerotic heart disease of [place] coronary artery without angina pectoris Bradycardia Chronic combined systolic and diastolic CHF (congestive heart failure) Chronic sinusitis COPD (chronic obstructive pulmonary disease) Essential (primary) hypertension History of back problems HLD (hyperlipidemia) Hypokalemia Hypophosphatemia Ischemic cardiomyopathy Ischemic mitral valve regurgitation Long QT interval (03/2017) Mixed obstructive and restrictive ventilatory defect Multiple premature ventricular complexes Nicotine dependence Obstructive sleep apnea Old inferior wall myocardial infarction (12/22/04) Right bundle branch block (RBBB) Right upper quadrant abdominal pain Secondary pulmonary arterial hypertension Tobacco abuse Type 2 diabetes mellitus Home Medications amlodipine 5 mg tablet 5 mg PO DAILY 03/20/17 [History Last Taken 12/01/20] aspirin 81 mg chewable tablet 81 mg PO DAILY 03/20/17 [History Last Taken 12/01/20] atorvastatin 80 mg tablet 80 mg PO QHS 03/20/17 [History Last Taken Unknown] lisinopril 10 mg tablet 10 mg PO DAILY 03/20/17 [History Last Taken 12/01/20] albuterol sulfate 90 mcg/actuation aerosol inhaler 1 - 2 puff inhalation Q4H PRN PRN Wheezing ##1 03/31/17 [Rx Last Taken Unknown] cholecalciferol (vitamin D3) 50 mcg (2,000 unit) capsule 50 mcg PO DAILY 04/16/20 [History Last Taken Unknown] metoprolol succinate 25 mg tablet,extended release 24 hr 25 mg PO DAILY 08/18/21 [History Last Taken Unknown] prednisone 10 mg tablet 10 mg PO UD #33 tabs 03/18/22 [Rx Last Taken Unknown] ticagrelor 90 mg tablet (Brilinta) See Rx Instructions .Route .COMPLEX #180 tabs 10/06/22 [Rx Last Taken Unknown] loratadine 10 mg disintegrating tablet (Claritin RediTabs) 10 mg PO DAILY #60 tabs 11/01/22 [Rx Last Taken Unknown] prednisone 50 mg tablet 50 mg PO DAILY #5 tabs 11/01/22 [Rx Last Taken Unknown] Allergy/AdvReac Type Severity Reaction Status Date / Time No Known Allergies Allergy Verified 03/18/22 14:19 Family History Mother Hypertension Father Heart disease Surgical History H/O coronary artery bypass surgery (12/29/04) History of appendectomy History of section History of coronary artery stent placement (12/01/20) History of left heart catheterization (12/22/04) History of mitral valve repair (12/29/04) Social History Smoking Status: Heavy Smoker (>10/day) second hand exposure: Yes quit status: has quit before alcohol intake: current alcohol intake frequency: a few times a month Alcohol type: hard liquor substance use type: does not use caffeine: Yes Type: coffee Number of servings: 2 what type of physical activity do you participate in: walking seatbelt use: always ROS ROS ED Constitutional Constitutional ED: Denies chills, fever(s) or sweats Eyes Eyes: Denies blurry vision or change in vision ENT ENT ED: Reports rhinorrhea; Denies ear pain or sore throat Cardiovascular Cardiovascular: Denies chest pain, palpitations or racing heartbeat Respiratory/Chest Respiratory/Chest: Reports cough; Denies dyspnea or sputum Gastrointestinal Gastrointestinal: Denies abdominal pain, constipation, diarrhea, nausea or vomiting Genitourinary Genitourinary ED: Denies dysuria, hematuria or urinary frequency Musculoskeletal Musculoskeletal: Denies arthralgias, myalgias or neck pain Integumentary Denies abscess, Abrasions or rash Neurologic Neurologic: Denies headache(s), paresthesias or weakness Psychiatric Psychiatric: Denies anxiety, depression, suicidal ideation or suicidal thoughts Endocrine Endocrinology: Denies polydipsia or polyuria EXAM Physical Exam Const Vital Signs: 11/01/22 19:36 11/01/22 19:39 11/01/22 21:47 Temperature 99.1 F Temperature Source Temporal Pulse Rate 78 80 Respiratory Rate 16 16 Respiratory Effort Normal Non-Labored Respiratory Pattern Normal Blood Pressure 127/73 H Blood Pressure Mean 91 Pulse Ox 98 Positive well nourished General Appearance ED: NAD; Negative for pallor HEENT Reports moist mucous membranes normocephalic Face and Sinus: sinuses nontender and face symmetric Nose: nasal discharge clear External Ear: external ears normal Mouth ED: Yes oral and palatal mucosa normal, Yes lips normal and Yes tongue normal Mouth: oral and palatal mucosa normal, lips normal and tongue normal Eyes PERRL and EOMs intact bilaterally Chest Wall inspection of chest normal Resp normal respiratory effort Auscultation: wheezes Cardio regular rate and regular rhythm Extremity normal to inspection General Extremety ED: Negative for edema or tenderness General Extremity: Negative for edema Neuro oriented x3 and CN's II-XII intact bilaterally Sensorium / Orientation: alert Motor Exam: strength 5/5 throughout Psych mental status grossly normal Skin no rashes or lesions noted General Skin Exam: Negative for jaundice or pallor MDM MDM MDM Narrative Medical decision making narrative: Patient presenting with rhinorrhea which she is concerned is allergic in nature. States she cannot afford to buy allergy medicine. She also states he is coughing. On exam I noted she is wheezing a little bit but this is very faint. Patient was given a dose of prednisone and breathing treatments and she feels much better. I wrote a prescription for a burst of prednisone as well as Claritin. I do not believe she needs any blood work or imaging today. She is amenable to this. I did recommend that she get a Ashli pot for home. She acknowledged understanding. Return precautions discussed. Impression: 1. Allergic rhinitis 2. COPD flare Discharge Plan Triage Chief Complaint: General Illness ED Provider: Kishan Charles Dx/Rx/DC Orders Instructions: ED COPD Flare, ED Allergic Rhinitis Prescriptions: New prednisone 50 mg tablet 50 mg PO DAILY Qty: 5 0RF loratadine [Claritin RediTabs] 10 mg tablet,disintegrating 10 mg PO DAILY Qty: 60 0RF No Action cholecalciferol (vitamin D3) 50 mcg (2,000 unit) capsule 50 mcg PO DAILY metoprolol succinate 25 mg tablet extended release 24 hr 25 mg PO DAILY atorvastatin 80 MG tablet 80 mg PO QHS Label Comments: amlodipine 5 MG tablet 5 mg PO DAILY Label Comments: lisinopril 10 MG tablet 10 mg PO DAILY Label Comments: aspirin 81 MG tablet,chewable 81 mg PO DAILY albuterol sulfate 1 INHALER inhaler 1 - 2 puff INHALATION Q4H PRN PRN (Reason: Wheezing) Qty: 1 0RF prednisone 10 mg tablet 10 mg PO UD Qty: 33 0RF Rx Instructions: Take 4 tablets daily for 3 days, then 3 daily for 3 days, then 2 daily for 3 days, then 1 a day for 3 days then 1 QOD for 3 doses. Brilinta 90 mg tablet See Rx Instructions .ROUTE .COMPLEX Qty: 180 3RF Dose Instruction: TAKE 1 TABLET BY MOUTH TWICE A DAY Rx Instructions: TAKE 1 TABLET BY MOUTH TWICE A DAY Primary Care Provider: Blanca Harris Referrals: Blanca Harris MD [Primary Care Provider] - Disposition Disposition: Home, Self Care Discharge Date/Time: 11/01/22 22:42
[2022-11-01] MEDS: predniSONE 20 MG Tablet 60 MG PO (22:10)
== END 2022-11-01 22:42 | disposition home or self-care (01) ==
PROVIDERS: Emergency Provider Student in an Organized Health Care Education/Training Program; PCP Internal Medicine; Referring Provider Student in an Organized Health Care Education/Training Program; Visit Provider Student in an Organized Health Care Education/Training Program
DX: J30.9 Allergic rhinitis, unspecified (principal); J44.9 Chronic obstructive pulmonary disease, unspecified; I11.0 Hypertensive heart disease with heart failure; I50.42 Chronic combined systolic (congestive) and diastolic (congestive) heart failure; F17.200 Nicotine dependence, unspecified, uncomplicated; I25.10 Atherosclerotic heart disease of native coronary artery without angina pectoris; I25.5 Ischemic cardiomyopathy; E78.5 Hyperlipidemia, unspecified; I25.2 Old myocardial infarction; G47.33 Obstructive sleep apnea (adult) (pediatric); Z95.1 Presence of aortocoronary bypass graft; Z95.5 Presence of coronary angioplasty implant and graft; Z79.82 Long term (current) use of aspirin; Z79.899 Other long term (current) drug therapy
CPT/HCPCS: 94640; 99285

== ENCOUNTER 2022-11-04 16:02 | Inpatient (IN) | payer MEDICAID, SELFPAY ==
[2022-11-04] VITALS (13 sets, daily range): BP systolic 114–151; BP diastolic 63–98; PULSE 59–93; RESP 16–24; TEMP 36.6–36.9; O2SAT 81–98; BMI 27.3; BMI 25.8
--- NOTE | 2022-11-04 17:00 | ED.VIS.DYS ---
HPI History of Present Illness Chief Complaint: Shortness of Breath Narrative Narrative: 67-year-old female presenting with shortness of breath. She states that Tuesday she was here and had a little bit of wheezing and she had a breathing treatment which helped her significantly. She also had some rhinorrhea and sinus pressure which was attributed to allergies. She was started on allergy medication. She was given prednisone and breathing treatments in the ER. Since then she has been having some shortness of breath. She states that she was outside walking today and it really made her short of breath. She is hypoxic on arrival at 81% on room air. She states she has not checked her oxygen at home because she does not wear oxygen on a regular basis. She states she has not had to wear oxygen since 2017 when she was hospitalized for pneumonia. She states she has a history of cardiac disease. She had a cardiac stent, CABG. She does not have any fevers or chills. No body aches. PFSH PFS Medical History Anxious depression Arthritis Atherosclerotic heart disease of [place] coronary artery without angina pectoris Bradycardia Chronic combined systolic and diastolic CHF (congestive heart failure) Chronic sinusitis COPD (chronic obstructive pulmonary disease) Essential (primary) hypertension History of back problems HLD (hyperlipidemia) Hypokalemia Hypophosphatemia Ischemic cardiomyopathy Ischemic mitral valve regurgitation Long QT interval (03/2017) Mixed obstructive and restrictive ventilatory defect Multiple premature ventricular complexes Nicotine dependence Obstructive sleep apnea Old inferior wall myocardial infarction (12/22/04) Right bundle branch block (RBBB) Right upper quadrant abdominal pain Secondary pulmonary arterial hypertension Tobacco abuse Type 2 diabetes mellitus Home Medications amlodipine 5 mg tablet 5 mg PO DAILY 03/20/17 [History Last Taken 12/01/20] aspirin 81 mg chewable tablet 81 mg PO DAILY 03/20/17 [History Last Taken 12/01/20] atorvastatin 80 mg tablet 80 mg PO QHS 03/20/17 [History Last Taken Unknown] lisinopril 10 mg tablet 10 mg PO DAILY 03/20/17 [History Last Taken 12/01/20] albuterol sulfate 90 mcg/actuation aerosol inhaler 1 - 2 puff inhalation Q4H PRN PRN Wheezing ##1 03/31/17 [Rx Last Taken Unknown] cholecalciferol (vitamin D3) 50 mcg (2,000 unit) capsule 50 mcg PO DAILY 04/16/20 [History Last Taken Unknown] metoprolol succinate 25 mg tablet,extended release 24 hr 25 mg PO DAILY 08/18/21 [History Last Taken Unknown] ticagrelor 90 mg tablet (Brilinta) See Rx Instructions .Route .COMPLEX #180 tabs 10/06/22 [Rx Last Taken Unknown] loratadine 10 mg disintegrating tablet (Claritin RediTabs) 10 mg PO DAILY #60 tabs 11/01/22 [Rx Last Taken Unknown] Allergy/AdvReac Type Severity Reaction Status Date / Time No Known Allergies Allergy Verified 03/18/22 14:19 Family History Mother Hypertension Father Heart disease Surgical History H/O coronary artery bypass surgery (12/29/04) History of appendectomy History of section History of coronary artery stent placement (12/01/20) History of left heart catheterization (12/22/04) History of mitral valve repair (12/29/04) Social History Smoking Status: Heavy Smoker (>10/day) second hand exposure: Yes quit status: has quit before alcohol intake: current alcohol intake frequency: a few times a month Alcohol type: hard liquor substance use type: does not use caffeine: Yes Type: coffee Number of servings: 2 what type of physical activity do you participate in: walking seatbelt use: always ROS ROS ED Constitutional Constitutional ED: Denies chills or fever(s) EXAM Physical Exam Const Vital Signs: 11/04/22 16:06 11/04/22 16:11 11/04/22 16:12 Temperature 98.2 F Temperature Source Temporal Pulse Rate 93 Respiratory Rate 24 H Respiratory Effort Short of Breath Respiratory Depth Normal Respiratory Pattern Tachypnea Blood Pressure 123/63 H Blood Pressure Mean 83 Pulse Ox 81 92 Oxygen Delivery Method Room Air Nasal Cannula Nasal Cannula Oxygen Flow Rate (L/min) 4 4 11/04/22 17:12 11/04/22 17:10 11/04/22 17:08 Temperature 98 F Temperature Source Temporal Pulse Rate 91 81 Respiratory Rate 19 H 20 H Respiratory Effort Respiratory Depth Respiratory Pattern Blood Pressure 127/75 H Blood Pressure Mean 92 Pulse Ox 95 Oxygen Delivery Method Nasal Cannula Nasal Cannula Oxygen Flow Rate (L/min) 4 4 11/04/22 18:14 11/04/22 18:00 11/04/22 19:00 Temperature 98.2 F 98.1 F Temperature Source Temporal Temporal Pulse Rate 80 70 71 Respiratory Rate 21 H 21 H 19 H Respiratory Effort Respiratory Depth Respiratory Pattern Blood Pressure 127/68 H 148/81 H 151/98 H Blood Pressure Mean 87 103 115 Pulse Ox 94 92 92 Oxygen Delivery Method Nasal Cannula Nasal Cannula Nasal Cannula Oxygen Flow Rate (L/min) 2 4 4 MDM MDM MDM Narrative Medical decision making narrative: 67-year-old female presenting with hypoxia and shortness of breath. She has a history of COPD. She states she quit smoking Tuesday when she was seen here for COPD exacerbation as well as treatment for allergies. Differential includes but is not limited to ACS, PE, pneumonia, electrolyte abnormalities, dehydration, anemia, CHF. CBC to assess white blood cell count, hemoglobin, platelets, differential. CMP to assess liver function, renal function, glucose, anion gap, electrolytes. High-sensitivity troponin, EKG, chest x-ray will be obtained to rule out ischemic causes and pneumonia versus CHF. D-dimer to assess for pulmonary embolism. CBC shows a slight leukocytosis at 12.2 however the patient has been on steroids. Hemoglobin hematocrit are stable. Platelets are normal. BNP elevated at 423.5. high-sensitivity troponin is 111 which is likely due to hypoxia because her second troponin is only 108. EKG normal sinus rhythm with a ventricular rate of 83 bpm with right bundle branch block on my interpretation. There is a slight sinus arrhythmia present. She was given 324 mg of aspirin. She does not report any chest pain. Glucose 124 without anion gap. Renal function appears to be normal. Sodium slightly low at 132. Chest x-ray on my interpretation shows bilateral pneumonia. Patient given Rocephin and azithromycin. D-dimer was elevated at 0.85 and she will have a CTA of the chest. CTA of the chest negative for PE or dissection but does show evidence of pneumonia in the bilateral lower lobes as well as the right and left perihilar regions. Given her hypoxia the patient will need to be admitted. Discussed with the hospitalist for admission. Impression: 1. Bilateral pneumonia 2. Hypoxic respiratory failure 3. Elevated troponin 4. COPD exacerbation Lab Data Labs: Laboratory Results - last 24 hr 11/04/22 11/04/22 11/04/22 17:20 17:20 17:20 WBC 12.2 H RBC 4.37 Hgb 12.8 Hct 37.6 MCV 86.0 MCH 29.3 MCHC 34.0 RDW Std Deviation 48.9 H RDW Coeff of Chris 15.3 H Plt Count 244 MPV 11.3 Immature Gran % (Auto) 0.800 Neut % (Auto) 72.8 H Lymph % (Auto) 10.4 L [place] % (Auto) 15.8 H Eos % (Auto) 0.0 Baso % (Auto) 0.2 Absolute Neuts (auto) 8.9 H Absolute Lymphs (auto) 1.27 Nucleated RBC % 0 Differential Comment SEE COMMENT Diff Path Review May foll Toxic Granulation RARE Platelet Estimate ADEQUATE Plt Morphology Comment LARGE RBC Morphology N CHROM Anisocytosis RARE Ovalocytes RARE D-Dimer Quant (PE/DVT) 0.85 H* Sodium 132 L Potassium 3.5 Chloride 94 L Carbon Dioxide 30.0 Anion Gap 8 BUN 12 Creatinine 0.81 Estim Creat Clear Calc 59.00 Est GFR (MDRD) Af Amer 91 Est GFR (MDRD) Non-Af 75 BUN/Creatinine Ratio 14.8 Glucose 124 H Calcium 9.1 Total Bilirubin 0.60 AST 30 ALT 23 Alkaline Phosphatase 61 Troponin I High Sens 111 H B-Natriuretic Peptide Total Protein 7.3 Albumin 2.9 L Globulin 4.4 H Albumin/Globulin Ratio 0.7 L 11/04/22 11/04/22 17:20 19:30 WBC RBC Hgb Hct MCV MCH MCHC RDW Std Deviation RDW Coeff of Chris Plt Count MPV Immature Gran % (Auto) Neut % (Auto) Lymph % (Auto) [place] % (Auto) Eos % (Auto) Baso % (Auto) Absolute Neuts (auto) Absolute Lymphs (auto) Nucleated RBC % Differential Comment Diff Path Review Toxic Granulation Platelet Estimate Plt Morphology Comment RBC Morphology Anisocytosis Ovalocytes D-Dimer Quant (PE/DVT) Sodium Potassium Chloride Carbon Dioxide Anion Gap BUN Creatinine Estim Creat Clear Calc Est GFR (MDRD) Af Amer Est GFR (MDRD) Non-Af BUN/Creatinine Ratio Glucose Calcium Total Bilirubin AST ALT Alkaline Phosphatase Troponin I High Sens 118 H B-Natriuretic Peptide 423.5 H Total Protein Albumin Globulin Albumin/Globulin Ratio Radiography Diagnostic Testing: Clinical Impression(s) from Imaging Studies Chest X-Ray 11/04/22 17:24 IMPRESSION: 1. Infiltrates at the right lung base and left perihilar region and retrocardiac left lower lobe. Question pneumonia. 2. Stable cardiomegaly with evidence of median sternotomy. Electronically Signed: Ernesto Cedeno DO at 18:16 EDT Reading Location ID and State: [facility] / [place] Tel [phone], Service support , Chest CTA 11/04/22 17:48 IMPRESSION: 1. No evidence of pulmonary embolus. 2. No aortic dissection or aneurysm. 3. Mild cardiomegaly with evidence of CABG procedure. 4. Interstitial infiltrates in the lingula and bilateral lower lobes and right middle lobe. There is focal consolidation in the right lower lobe. Associated lower lobe bronchiectasis. Electronically Signed: Ernesto Cedeno DO at 19:20 EDT Reading Location ID and State: [facility] / [place] Tel [phone], Service support , Discharge Plan Triage Chief Complaint: Shortness of Breath ED Provider: Kishan Charles Dx/Rx/DC Orders Primary Care Provider: Blanca Harris
[2022-11-04] MEDS: Ipratropium/Albuterol Sulfate 3 ML AMPUL.NEB INHALATION ×2 (17:07→23:28)
[2022-11-04] MEDS: Acetaminophen 500 MG Tablet 1000 MG PO (17:13)
[2022-11-04] MEDS: MethylPREDNISolone 125 MG/2 ML Vial IV (17:13)
--- NOTE | 2022-11-04 17:24 | RAD_ITS ---
STUDY: X-RAY CHEST REASON FOR EXAM: Female, 67 years old. Dyspnea. Diagnosed with sinus infection on Tuesday. TECHNIQUE: Single AP portable view of the chest. COMPARISON: March 18, 2022. FINDINGS: There is a right lower lobe pneumonia. Minimal patchy density seen in the left hilar region and retrocardiac left lower lobe. There is no demonstrated pleural abnormality. Stable cardiomegaly with evidence of median sternotomy. Normal mediastinum and keon. Normal visualized pulmonary arteries. Normal visualized aortic arch and descending thoracic aorta. There are diffuse degenerative changes of the visualized thoracic spine. Normal visualized ribs, clavicles, and shoulders. There is no demonstrated abnormality of the visualized soft tissue structures of the upper abdomen. RAD/Chest 1 View (Portable) IMPRESSION: 1. Infiltrates at the right lung base and left perihilar region and retrocardiac left lower lobe. Question pneumonia. 2. Stable cardiomegaly with evidence of median sternotomy. Electronically Signed: Ernesto Cedeno DO at 18:16 EDT ,
[2022-11-04 17:29] LABS: Absolute Lymphocyte Count 1.27 X10^3/uL (0.83-4.51); Absolute Neutrophil Count 8.9 X10^3/uL (2.0-7.7); Basophil# 0.03 X10^3/uL; Basophil% 0.2 % (0-1); Hematocrit 37.6 % (37-47); Hemoglobin 12.8 g/dL (12.0-15.0); Lymphocyte # 1.27 X10^3/ul (0.83-4.51); Lymphocyte % 10.4 % (19-41); Mean Corpuscular Hgb 29.3 pg (27.0-32.0); Mean Platelet Vol. 11.3 fl (6.2-12.0); Monocyte# 1.93 X10^3/uL; Monocyte% 15.8 % (0-10); NRBC Flagged by Analyzer 0 % (0-5); Neutrophil # 8.91 X10^3/uL (2.7-7.7); Neutrophil % 72.8 % (47-70); POSITIVE DIFFERENTIAL YES; POSITIVE MORPHOLOGY YES; Platelet Count 244 K/mm3 (150-450); RBC Distribution Width CV 15.3 % (11.6-14.6); RBC Distribution Width SD 48.9 fl (35.1-43.9); Red Blood Count 4.37 M/mm3 (4.2-5.4); White Blood Count 12.2 K/mm3 (4.4-11.0)
[2022-11-04 17:41] LABS: Differential Indicated SCAN CRITERIA MET
[2022-11-04 17:47] LABS: D-Dimer Quantitative (DVT/PE) 0.85 FEU/ug/m (0.27-0.49)
--- NOTE | 2022-11-04 17:48 | CT_ITS ---
STUDY: CTA CHEST REASON FOR EXAM: Female, 67 years old. Hypoxia. RADIATION DOSAGE (If Supplied By Facility): CTDIvol = ( 11.80 ) mGy, DLP = ( 331.10 ) mGycm TECHNIQUE: The examination was performed with the intravenous administration of IV 100mL Isovue-370. Post-processing of the angiographic images was performed, with multiplanar reformation and 3D reconstruction. Individualized dose optimization techniques were used for this CT. COMPARISON: Chest, November 04, 2022. CT of the chest, February 07, 2020. FINDINGS: Normal enhancement of the main pulmonary artery and right and left pulmonary arteries. Normal enhancement of the bilateral peripheral pulmonary arteries. There is no demonstrated pulmonary embolism. Atherosclerotic changes of the thoracic aorta without aneurysm. There is no demonstrated aortic dissection. Heart is mildly enlarged. Normal pericardium. Urinary artery calcifications. There is evidence of median sternotomy. Question CABG procedure. Nonspecific subcentimeter mediastinal lymphadenopathy. Normal hilar regions. Normal visualized trachea and bronchi. The lungs are well expanded. Minimal interstitial prominence in the lingula and right middle lobe with focal consolidation in the latter. Minimal bronchiectasis and interstitial prominence is seen in both lung bases. Normal pleura. Evidence of median sternotomy. There are degenerative changes of thoracic spine. Normal visualized upper abdomen. CT/CTA Chest W/WO Contrast IMPRESSION: 1. No evidence of pulmonary embolus. 2. No aortic dissection or aneurysm. 3. Mild cardiomegaly with evidence of CABG procedure. 4. Interstitial infiltrates in the lingula and bilateral lower lobes and right middle lobe. There is focal consolidation in the right lower lobe. Associated lower lobe bronchiectasis. Electronically Signed: Ernesto Cedeno DO at 19:20 EDT ,
[2022-11-04 17:52] LABS: ALB/GLOB Ratio 0.7 RATIO (0.9-2.4); AST(SGOT) 30 U/L (15-37); Alanine Aminotransfer ALT/SGPT 23 U/L (13-56); Albumin, Serum 2.9 g/dL (3.2-5.0); Alkaline Phosphatase 61 U/L (45-117); Anion Gap 8 (5-15); BUN 12 mg/dL (7-18); BUN/Creat Ratio 14.8 RATIO (10-20); Calcium,Total 9.1 mg/dL (8.5-10.1); Chloride 94 mmol/L (98-107); Creatinine, Serum 0.81 mg/dL (0.55-1.02); EST Glomerular Filtration Rate 75 mL/min (>60); Est Glom Filt Rate - Afr Amer 91 mL/min (>60); Globulin 4.4 g/dL (2.2-4.2); Glucose 124 mg/dL (74-106); Potassium 3.5 mmol/L (3.5-5.1); Protein, Total 7.3 g/dL (6.4-8.2); Sodium Level 132 mmol/L (136-145); Troponin-I HS (w/2H Reflex) 111 pg/mL (3.0-54.0)
[2022-11-04 17:54] LABS: Platelet Estimate ADEQUATE (ADEQ); Platelet Morphology LARGE; Red Cell Morphology N CHROM NORMAL (NORM C&C); Toxic Granulation RARE
[2022-11-04 17:55] LABS: Anisocytosis RARE; Ovalocyte RARE
[2022-11-04 17:58] LABS: BNP,B-Type NATRIURETIC PEPTIDE 423.5 pg/mL (0-100)
--- NOTE | 2022-11-04 18:28 | CM.ED ---
Social Work SW received referral due to living conditions. SW introduced self and role to patient. Patient reports she is living with people that are like family. Pt denies involvement with 2 children and mother and requests they not be called. Patient reports she is in an upstairs bedroom without air conditioning or a fan. Pt reports there is no running water, animal feces throughout home, and suspected bed bugs. Pt reports she has been living there for 2 weeks and is unsure how long they have been without running water but not while she has been there. Pt presents as unkempt and reportedly had feces all over her shoes. Pt reports she can't breathe in there with the heat and that she would like to get out of the home. Pt denies having direction home telehealth case manager or any other workers. Pt reports SSI as income. Pt would benefit from a telehealth case manager and housing assistance. APS referral placed, voicemail left due to being after hours. Plan: SW to follow if patient is admitted/d/c needs. SW to provide referral and resource information and follow up with APS. Una Gruber BILLING ADMINISTRATOR, SOLDER MAKING LABORER
[2022-11-04] MEDS: Ceftriaxone 1 GM/50 ML BAG IV (18:55)
[2022-11-04 19:26] LABS: Reflex Troponin-HS? (from REC) Y
[2022-11-04 20:00] LABS: Troponin-I HS 118 pg/mL (3.0-54.0)
[2022-11-04] MEDS: Aspirin 81 MG TAB.CHEW 324 MG PO (20:02)
--- NOTE | 2022-11-04 20:05 | HP.PCM.HOS_ITS ---
[facility] - General General Date of Service: 11/04/22 Chief Complaint: shortness of breath [facility] Narrative ALBERTO MASTERS, is a 67 F who presents with shortness of breath. Symptoms began suddenly today but had not been feeling well for few days prior. Patient was diagnosed with a COPD flare and received prednisone as well as loratadine. Patient presents here and she was tachypneic with a respiratory rate 24 and was hypoxic with a pulse ox down to 84% on room air. Patient was placed on 4 L nasal cannula and oxygenation improved as well as her respiratory rate. Patient was found to have right upper lobe infiltrate and received ceftriaxone and azithromycin in the emergency room. Additionally, she received methylprednisolone as well as bronchodilators. [facility] Medical History Anxious depression Arthritis Atherosclerotic heart disease of [place] coronary artery without angina pectoris Bradycardia Chronic combined systolic and diastolic CHF (congestive heart failure) Chronic sinusitis COPD (chronic obstructive pulmonary disease) Essential (primary) hypertension History of back problems HLD (hyperlipidemia) Hypokalemia Hypophosphatemia Ischemic cardiomyopathy Ischemic mitral valve regurgitation Long QT interval (03/2017) Mixed obstructive and restrictive ventilatory defect Multiple premature ventricular complexes Nicotine dependence Obstructive sleep apnea Old inferior wall myocardial infarction (12/22/04) Right bundle branch block (RBBB) Right upper quadrant abdominal pain Secondary pulmonary arterial hypertension Tobacco abuse Type 2 diabetes mellitus Home Medications amlodipine 5 mg tablet 5 mg PO DAILY 03/20/17 [History Last Taken 12/01/20] aspirin 81 mg chewable tablet 81 mg PO DAILY 03/20/17 [History Last Taken 12/01/20] atorvastatin 80 mg tablet 80 mg PO QHS 03/20/17 [History Last Taken Unknown] lisinopril 10 mg tablet 10 mg PO DAILY 03/20/17 [History Last Taken 12/01/20] albuterol sulfate 90 mcg/actuation aerosol inhaler 1 - 2 puff inhalation Q4H PRN PRN Wheezing ##1 03/31/17 [Rx Last Taken Unknown] cholecalciferol (vitamin D3) 50 mcg (2,000 unit) capsule 50 mcg PO DAILY 04/16 [History Last Taken Unknown] metoprolol succinate 25 mg tablet,extended release 24 hr 25 mg PO DAILY 08/18/21 [History Last Taken Unknown] ticagrelor 90 mg tablet (Brilinta) See Rx Instructions .Route .COMPLEX #180 tabs 10/06/22 [Rx Last Taken Unknown] loratadine 10 mg disintegrating tablet (Claritin RediTabs) 10 mg PO DAILY #60 tabs 11/01/22 [Rx Last Taken Unknown] Allergy/AdvReac Type Severity Reaction Status Date / Time No Known Allergies Allergy Verified 03/18/22 14:19 Family History Mother Hypertension Father Heart disease Surgical History H/O coronary artery bypass surgery (12/29/04) History of appendectomy History of section History of coronary artery stent placement (12/01/20) History of left heart catheterization (12/22/04) History of mitral valve repair (12/29/04) Social History Smoking Status: Heavy Smoker (>10/day) second hand exposure: Yes quit status: has quit before alcohol intake: current alcohol intake frequency: a few times a month Alcohol type: hard liquor substance use type: does not use caffeine: Yes Type: coffee Number of servings: 2 what type of physical activity do you participate in: walking seatbelt use: always QUIN Roberts Does have a rash on her legs which she thinks is due to a heat rash. Denies any chest pain. All review of systems were negative except as mentioned above in the history of present illness and the other review of systems. Vital Signs Vital Signs Vital Signs: 11/04/22 16:06 11/04/22 16:11 11/04/22 16:12 Temperature 36.8 C Temperature Source Temporal Pulse Rate 93 Respiratory Rate 24 H Respiratory Effort Short of Breath Respiratory Depth Normal Respiratory Pattern Tachypnea Blood Pressure 123/63 H Blood Pressure Mean 83 Pulse Ox 81 92 Oxygen Delivery Method Room Air Nasal Cannula Nasal Cannula Oxygen Flow Rate (L/min) 4 4 11/04/22 17:12 11/04/22 17:10 11/04/22 17:08 Temperature 36.6 C Temperature Source Temporal Pulse Rate 91 81 Respiratory Rate 19 H 20 H Respiratory Effort Respiratory Depth Respiratory Pattern Blood Pressure 127/75 H Blood Pressure Mean 92 Pulse Ox 95 Oxygen Delivery Method Nasal Cannula Nasal Cannula Oxygen Flow Rate (L/min) 4 4 11/04/22 18:14 11/04/22 18:00 11/04/22 19:00 Temperature 36.8 C 36.7 C Temperature Source Temporal Temporal Pulse Rate 80 70 71 Respiratory Rate 21 H 21 H 19 H Respiratory Effort Respiratory Depth Respiratory Pattern Blood Pressure 127/68 H 148/81 H 151/98 H Blood Pressure Mean 87 103 115 Pulse Ox 94 92 92 Oxygen Delivery Method Nasal Cannula Nasal Cannula Nasal Cannula Oxygen Flow Rate (L/min) 2 4 4 11/04/22 20:00 Temperature 36.6 C Temperature Source Temporal Pulse Rate 74 Respiratory Rate 22 H Respiratory Effort Respiratory Depth Respiratory Pattern Blood Pressure 131/74 H Blood Pressure Mean 93 Pulse Ox 94 Oxygen Delivery Method Nasal Cannula Oxygen Flow Rate (L/min) 4 Weight Weight: 72.3 kg Body Mass Index (BMI) 27.3 Physical Exam Narrative - Physical Exam General: Alert, Oriented x3, Cooperative HEENT: Atraumatic, Normocephalic Oral: Moist Mucosa, No Gingival or Mucosal Lesions/ Ulcerations Neck: Supple, No JVD, Negative Carotid Bruits Lungs: Crackles in right upper lobe. Some expiratory upper lobe wheezes., Normal air movement Cardiovascular: Regular rate, Normal S1, Normal S2, No murmurs Abdomen: Bowel Sounds Present, Soft, Non Tender, Non-Distended, No Hepato- splenomegaly Extremities: No clubbing, No cyanosis, No edema, Capillary Refill Less than 3 Seconds Skin: Faint rash on upper chest as well as lower extremities., No breakdown Musculoskeletal: No Tenderness to Palpation of Joints or Extremities Neurological: Neuro grossly intact Psych/Mental Status: Normal Affect, Appropriate Results Lab / Micro Data Attestation: I reviewed the patient's lab results. Lab results narrative: CAT scan reviewed and showed right upper lobe patchy infiltrates. Result Diagrams: 11/04/22 17:20 11/04/22 17:20 Labs: Laboratory Results - last 24 hr 11/04/22 17:20: WBC 12.2 H, RBC 4.37, Hgb 12.8, Hct 37.6, MCV 86.0, MCH 29.3, MCHC 34.0, RDW Std Deviation 48.9 H, RDW Coeff of Chris 15.3 H, Plt Count 244, MPV 11.3, Immature Gran % (Auto) 0.800, Neut % (Auto) 72.8 H, Lymph % (Auto) 10.4 L, [place] % (Auto) 15.8 H, Eos % (Auto) 0.0, Baso % (Auto) 0.2, Absolute Neuts (auto) 8.9 H, Absolute Lymphs (auto) 1.27, Nucleated RBC % 0, Differential Comment SEE COMMENT, Diff Path Review May foll, Toxic Granulation RARE, Platelet Estimate ADEQUATE, Plt Morphology Comment LARGE, RBC Morphology N CHROM, Anisocytosis RARE, Ovalocytes RARE 11/04/22 17:20: Sodium 132 L, Potassium 3.5, Chloride 94 L, Carbon Dioxide 30.0, Anion Gap 8, BUN 12, Creatinine 0.81, Estim Creat Clear Calc 59.00, Est GFR (MDRD) Af Amer 91, Est GFR (MDRD) Non-Af 75, BUN/Creatinine Ratio 14.8, Glucose 124 H, Calcium 9.1, Total Bilirubin 0.60, AST 30, ALT 23, Alkaline Phosphatase 61, Troponin I High Sens 111 H, Total Protein 7.3, Albumin 2.9 L, Globulin 4.4 H , Albumin/Globulin Ratio 0.7 L 11/04/22 17:20: D-Dimer Quant (PE/DVT) 0.85 H* 11/04/22 17:20: B-Natriuretic Peptide 423.5 H 11/04/22 19:30: Troponin I High Sens 118 H Micro: Microbiology 11/04/22 18:55 Nasal Secretion SARS-CoV-2 Antigen (Rapid) - Final 11/04/22 17:12 Mucosa - Nasopharyngeal Influenza Types A,B Direct FA (DESMOND) - Final EKG Initial EKG: Prior EKG tracings: available for review EKG Rhythm Intrepretation: Sinus Rhythm (Right bundle branch block. Unchanged from 2020.) Radiology Impression Chest X-Ray 11/04/22 17:24 IMPRESSION: 1. Infiltrates at the right lung base and left perihilar region and retrocardiac left lower lobe. Question pneumonia. 2. Stable cardiomegaly with evidence of median sternotomy. Electronically Signed: Ernesto Cedeno DO at 18:16 EDT Reading Location ID and State: [facility] / [place] Tel [phone], Service support , Chest CTA 11/04/22 17:48 IMPRESSION: 1. No evidence of pulmonary embolus. 2. No aortic dissection or aneurysm. 3. Mild cardiomegaly with evidence of CABG procedure. 4. Interstitial infiltrates in the lingula and bilateral lower lobes and right middle lobe. There is focal consolidation in the right lower lobe. Associated lower lobe bronchiectasis. Electronically Signed: Ernesto PaoDO at 19:20 EDT Reading Location ID and State: [address] [place] [address] Tel [phone], Service support , Assessment & Plan Assessment/Plan (1) Acute and chronic respiratory failure with hypoxia: PLAN: Secondary pneumonia and COPD exacerbation Patient was in obvious distress with hypoxia and tachypnea upon arrival. Wean oxygen as tolerated (2) Pneumonia: PLAN: Suspected pneumococcal Right upper lobe Plan: * Antibiotics with ceftriaxone and azithromycin * Check sputum culture, check urinary antigens were started coccus and Legionella * Pulmonary toilet (3) NSTEMI, initial episode of care: PLAN: Suspect type II given the respiratory failure, COPD exacerbation and pneumonia as well as hypoxia Will trend and if goes up considerably, would likely require anticoagulation and cardiology evaluation Patient takes Brilinta, will continue. We will add aspirin. Continue atorvastatin, lisinopril and metoprolol succinate. (4) COPD exacerbation: PLAN: Bronchodilators Methylprednisolone PLAN: Plan Chronic conditions * CAD: Stable. Continue with Brilinta, atorvastatin, lisinopril and metoprolol * Tobacco abuse: Patient smokes about a pack a day. Patient states that she is going to quit now. VTE prophylaxis with low molecular heparin CODE STATUS: Addressed with the patient. Patient is full CODE STATUS. Charges/Coding Visit Charges Inpatient E&M: 43504 Init Hosp L3
--- NOTE | 2022-11-04 21:27 | ECHOD_ITS ---
Reason For Study: ELEVATED TROPONIN Procedure This was a 2D Doppler, Color Flow transthoracic echocardiogram. Exam performed portable in patient room. Left Ventricle Normal LV size. The left ventricular ejection fraction is 55 %. Stage 2 diastolic dysfunction. Inferior and posterior hypokinesis. Right Ventricle Normal right ventricle. Atria The left atrium is severely enlarged. Normal right atrium. Mitral Valve Mitral valve annuloplasty repair. Mean transmitral valve gradient 4.5 mmHg. Mild-Moderate (1-2+) mitral valve insufficiency. Tricuspid Valve Mild tricuspid valve insufficiency. Right ventricular systolic pressure estimated to be 48 mmHg. Aortic Valve Trivial aortic valve insufficiency. Pulmonic Valve Mild pulmonic valve insufficiency identified. Great Vessels Normal sized aortic root. Pericardium/Pleural No pericardial effusion. MMode/2D Measurements & Calculations LVIDd: 6.1 cm IVSd: 1.2 cm LVOT diam: 2.0 cm LVIDs: 4.9 cm LVPWd: 1.1 cm LVOT area: 3.3 cm2 RVDd: 4.2 cm FS: 20.5 % Ao root diam: 3.0 cm LAV(MOD-bp): 69.7 ml LVAd ap4: 38.7 cm2 LAV(MOD-bp) Indexed: 39.2 ml/m2 LVLd ap4: 8.1 cm LAV(MOD-sp2): 68.3 ml EDV(MOD-sp4): 154.2 ml LAV(MOD-sp4): 68.6 ml EDV(sp4-el): 157.3 ml LVAs ap4: 29.0 cm2 LVLs ap4: 7.7 cm ESV(MOD-sp4): 90.7 ml ESV(sp4-el): 92.1 ml EF(MOD-sp4): 41.1 % EF(sp4-el): 41.4 % SV(MOD-sp4): 63.4 ml SV(sp4-el): 65.2 ml LA A4 area: 22.1 cm2 LA dimension(2D): 3.9 cm RA A4 area: 20.0 cm2 Time Measurements MV dec time: 0.62 sec Doppler Measurements & Calculations MV E max nathaniel: 134.0 cm/sec Lat Peak E' Nathaniel: 8.9 cm/sec Med Peak E' Nathaniel: 4.2 cm/sec MV A max nathaniel: 134.6 cm/sec E/E' lat: 15.1 E/E' med: 31.6 MV E/A: 1.00 MV V2 max: 155.1 cm/sec MV P1/2t max nathaniel: 159.2 cm/sec Ao V2 max: 184.7 cm/sec MV max P.6 mmHg MV P1/2t: 145.1 msec Ao max P.6 mmHg MV V2 mean: 100.8 cm/sec Ao V2 mean: 128.1 cm/sec MV mean P.5 mmHg MV dec slope: 321.2 cm/sec2 Ao mean P.4 mmHg MV V2 VTI: 55.3 cm MVA(P1/2t): 1.5 cm2 Ao V2 VTI: 37.1 cm AV (velocity ratio): 0.63 MVA(VTI): 1.4 cm2 ADRIANA(I,D): 2.1 cm2 ADRIANA(V,D): 1.9 cm2 LV V1 max: 107.1 cm/sec SV(LVOT): 76.9 ml PA V2 max: 166.4 cm/sec LV V1 max P.6 mmHg LV V1 mean P.8 mmHg LV V1 mean: 79.2 cm/sec LV V1 VTI: 23.5 cm TR max nathaniel: 307.5 cm/sec TR max P.8 mmHg ECHO/Echo Complete Interpretation Summary The left ventricular ejection fraction is 55 %. Stage 2 diastolic dysfunction. Inferior and posterior hypokinesis The left atrium is severely enlarged. Mild-Moderate (1-2+) mitral valve insufficiency. Mild tricuspid valve insufficiency. Right ventricular systolic pressure estimated to be 48 mmHg. Mild pulmonic valve insufficiency identified. Ordering Physician: Campos Dinh Referring Physician: HARISH JOHN Performed By: Mamta Levine RDCS
[2022-11-04 21:50] LABS: Troponin-I HS 120 pg/mL (3.0-54.0)
[2022-11-04] MEDS: TICAGRELOR 90 MG TABLET PO (23:35)
[2022-11-04] MEDS: Atorvastatin Calcium 80 MG Tablet PO (23:35)
[2022-11-05] VITALS (15 sets, daily range): BP systolic 104–116; BP diastolic 56–90; PULSE 58–79; RESP 16–28; TEMP 36.4–36.6; O2SAT 88–95
[2022-11-05] MEDS: Ipratropium/Albuterol Sulfate 3 ML AMPUL.NEB INHALATION ×6 (03:56→23:13)
[2022-11-05 06:04] LABS: Absolute Lymphocyte Count 0.89 X10^3/uL (0.83-4.51); Absolute Neutrophil Count 10.2 X10^3/uL (2.0-7.7); Basophil# 0.02 X10^3/uL; Basophil% 0.2 % (0-1); Hematocrit 38.9 % (37-47); Lymphocyte # 0.89 X10^3/ul (0.83-4.51); Lymphocyte % 7.3 % (19-41); Mean Corp Hgb Conc 33.4 g/dL (32-36); Mean Corpuscular Hgb 29.1 pg (27.0-32.0); NRBC Flagged by Analyzer 0 % (0-5); Neutrophil # 10.18 X10^3/uL (2.7-7.7); Neutrophil % 82.9 % (47-70); POSITIVE MORPHOLOGY YES; Platelet Count 256 K/mm3 (150-450); RBC Distribution Width CV 15.8 % (11.6-14.6); RBC Distribution Width SD 50.3 fl (35.1-43.9); Red Blood Count 4.47 M/mm3 (4.2-5.4); White Blood Count 12.3 K/mm3 (4.4-11.0)
[2022-11-05 06:19] LABS: Differential Indicated SCAN CRITERIA MET
[2022-11-05 06:28] LABS: Anion Gap 7 (5-15); BUN 12 mg/dL (7-18); BUN/Creat Ratio 18.7 RATIO (10-20); Calcium,Total 9.3 mg/dL (8.5-10.1); Chloride 98 mmol/L (98-107); Creatinine, Serum 0.64 mg/dL (0.55-1.02); EST Glomerular Filtration Rate 98 mL/min (>60); Est Glom Filt Rate - Afr Amer 119 mL/min (>60); Estimated Creatinine Clearance 47.79 ml/min; Glucose 134 mg/dL (74-106); Potassium 3.3 mmol/L (3.5-5.1); Sodium Level 135 mmol/L (136-145)
[2022-11-05 06:38] LABS: Anisocytosis 1+
[2022-11-05] MEDS: Metoprolol(XL)Succ 25 MG Tablet PO (09:24)
[2022-11-05] MEDS: Aspirin 81 MG TAB.CHEW PO (09:24)
[2022-11-05] MEDS: amLODIPine 5 MG Tablet PO (09:24)
[2022-11-05] MEDS: TICAGRELOR 90 MG TABLET PO ×2 (09:25→20:39)
[2022-11-05] MEDS: Enoxaparin 40 MG/0.4 ML Syringe SC (09:25)
[2022-11-05] MEDS: Cholecalciferol (VIT D3) 25 MCG TABLET (1,000 UNITS) 50 MCG PO (09:25)
[2022-11-05] MEDS: Lisinopril 10 MG Tablet PO (09:25)
[2022-11-05] MEDS: Loratadine 10 MG Tablet PO (09:25)
--- NOTE | 2022-11-05 09:49 | PCM.PN.HOSP ---
Subjective Subjective Doing well, no issues overnight. Feels little bit better than yesterday still requiring 6 L nasal cannula Objective Data Objective Data Vital Signs: Vital Signs Temp Pulse Resp BP Pulse Ox O2 Del Method O2 Flow Rate 97.9 F 67 18 116/56 L 92 Nasal Cannula 6 11/05/22 09:17 11/05/22 09:24 11/05/22 09:17 11/05/22 09:17 11/05/22 09:27 11/05/22 09:27 11/05/22 09:27 Oxygen Flow Rate (L/min) 6 Oxygen Delivery Method Nasal Cannula Weight: 150 lb 9.211 oz Body Mass Index (BMI) 25.8 Intake & Output: Intake and Output for Last 24 Hours 11/04/22 11/05/22 11/06/22 03:59 03:59 03:59 Intake Total 305 / 305 Output Total 150 / 150 Balance 305 / 305 -150 / -150 Lab / Micro Data Result Diagrams: 11/05/22 05:41 11/05/22 05:41 Labs: Laboratory Results - last 24 hr 11/04/22 17:20: WBC 12.2 H, RBC 4.37, Hgb 12.8, Hct 37.6, MCV 86.0, MCH 29.3, MCHC 34.0, RDW Std Deviation 48.9 H, RDW Coeff of Chris 15.3 H, Plt Count 244, MPV 11.3, Immature Gran % (Auto) 0.800, Neut % (Auto) 72.8 H, Lymph % (Auto) 10.4 L, Menard % (Auto) 15.8 H, Eos % (Auto) 0.0, Baso % (Auto) 0.2, Absolute Neuts (auto) 8.9 H, Absolute Lymphs (auto) 1.27, Nucleated RBC % 0, Differential Comment SEE COMMENT, Diff Path Review May foll, Toxic Granulation RARE, Platelet Estimate ADEQUATE, Plt Morphology Comment LARGE, RBC Morphology N CHROM, Anisocytosis RARE, Ovalocytes RARE 11/04/22 17:20: Sodium 132 L, Potassium 3.5, Chloride 94 L, Carbon Dioxide 30.0, Anion Gap 8, BUN 12, Creatinine 0.81, Estim Creat Clear Calc 59.00, Est GFR (MDRD) Af Amer 91, Est GFR (MDRD) Non-Af 75, BUN/Creatinine Ratio 14.8, Glucose 124 H, Calcium 9.1, Total Bilirubin 0.60, AST 30, ALT 23, Alkaline Phosphatase 61, Troponin I High Sens 111 H, Total Protein 7.3, Albumin 2.9 L, Globulin 4.4 H, Albumin/Globulin Ratio 0.7 L 11/04/22 17:20: D-Dimer Quant (PE/DVT) 0.85 H* 11/04/22 17:20: B-Natriuretic Peptide 423.5 H 11/04/22 19:30: Troponin I High Sens 118 H 11/04/22 20:26: Troponin I High Sens 120 H 11/05/22 05:41: WBC 12.3 H, RBC 4.47, Hgb 13.0, Hct 38.9, MCV 87.0, MCH 29.1, MCHC 33.4, RDW Std Deviation 50.3 H, RDW Coeff of Chris 15.8 H, Plt Count 256, MPV 11.0, Immature Gran % (Auto) 0.600, Neut % (Auto) 82.9 H, Lymph % (Auto) 7.3 L, Menard % (Auto) 9.0, Eos % (Auto) 0.0, Baso % (Auto) 0.2, Absolute Neuts (auto) 10.2 H, Absolute Lymphs (auto) 0.89, Nucleated RBC % 0, Anisocytosis 1+ 11/05/22 05:41: Sodium 135 L, Potassium 3.3 L, Chloride 98, Carbon Dioxide 30.0, Anion Gap 7, BUN 12, Creatinine 0.64, Estim Creat Clear Calc 47.79, Est GFR (MDRD) Af Amer 119, Est GFR (MDRD) Non-Af 98, BUN/Creatinine Ratio 18.7, Glucose 134 H, Calcium 9.3 Micro: Microbiology 11/05/22 06:00 Urine, Clean Catch Legionella Antigen - Final 11/05/22 06:00 Urine, Clean Catch Streptococcus pneumoniae Antigen (M - Final 11/04/22 18:55 Nasal Secretion SARS-CoV-2 Antigen (Rapid) - Final 11/04/22 17:12 Mucosa - Nasopharyngeal Influenza Types A,B Direct FA (DESMOND) - Final Radiography Diagnostic Testing: Radiology Impression Chest X-Ray 11/04/22 17:24 IMPRESSION: 1. Infiltrates at the right lung base and left perihilar region and retrocardiac left lower lobe. Question pneumonia. 2. Stable cardiomegaly with evidence of median sternotomy. Electronically Signed: Ernesto Cedeno DO at 18:16 EDT Reading Location ID and State: [facility] / [place] Tel [phone], Service support , Chest CTA 11/04/22 17:48 IMPRESSION: 1. No evidence of pulmonary embolus. 2. No aortic dissection or aneurysm. 3. Mild cardiomegaly with evidence of CABG procedure. 4. Interstitial infiltrates in the lingula and bilateral lower lobes and right middle lobe. There is focal consolidation in the right lower lobe. Associated lower lobe bronchiectasis. Electronically Signed: Ernesto Cedeno DO at 19:20 EDT Reading Location ID and State: [facility] / [place] Tel [phone], Service support , Physical Exam Narrative General: Alert, Oriented x3, Cooperative, No apparent distress HEENT: Atraumatic, PERRLA, EOMI, Normocephalic Oral: Moist Mucosa Neck: Supple, No JVD Lungs: Diminished, poor air movement, No rhonchi, No wheeze, No rales Cardiovascular: Regular rate, Regular Rhythm, Normal S1, Normal S2, No murmurs Abdomen: Soft, Non Tender, Non-Distended, No Hepato-splenomegaly Extremities: No edema, Capillary Refill Less than 3 Seconds Skin: No rashes, No breakdown Musculoskeletal: No Tenderness to Palpation of Joints or Extremities Neurological: Cranial nerves II-XII grossly intact, Motor Exam 5/5 strength throughout, Sensory exam intact to light touch and pain Psych/Mental Status: Normal Affect, Appropriate Assessment & Plan Assessment/Plan (1) Acute and chronic respiratory failure with hypoxia: (2) Pneumonia: (3) NSTEMI, initial episode of care: (4) COPD exacerbation: PLAN: Plan 1. Acute on chronic hypoxic respiratory failure secondary to a COPD exacerbation as well as bacterial pneumonia/tobacco abuse ? Continue with inhalers and steroids ? Continue with antibiotics ? Sputum culture is pending, urine antigens are negative ? Discussed cessation ? He does not wear oxygen at home 2. CAD status post stent/history of mitral valve repair/chronic combined CHF/HTN/HLD/non-STEMI type II ? She does have a slight increase in her troponin disease are stable and mild will not consult cardiology as this is likely demand ischemia secondary to her hypoxia from her COPD exacerbation and pneumonia ? We will continue with her home blood pressure ? Continue with her antiplatelets ? Continue with her statin DVT: Lovenox Charges/Coding Visit Charges Inpatient E&M: 74243 Subs Hosp L2
--- NOTE | 2022-11-05 13:42 | CASEMGMT ---
Assessment- SW completed assessment with patient at bedside. SW also confirmed address and phone number. Living situation- Patient is living with some friends in a 2 story home with a few entry steps. PCP: Steven Specialists: None Pharmacy: [facility] D[facility]:? None ADL's/IADL's: Patient is normally fairly independent. However, recently she has been having trouble with breathing and her back hurting. Patient does not drive. Past SNF/rehab: None Past HH: None LW: None POA:? None Patient's current living situation is not good. The home has no water. There is mold and part of the ceiling is caved in in some of the rooms. Patient does not have air conditioning or even a fan. Patient does not want to go back there. Patient is trying to find another place to live. SW also spoke with patient about [employer] of [employer]. Patient has two children. Patient's son is 44 and he won't talk to patient and hasn't for a couple of years. Patient's daughter is 37 in a custodial. SW explained that if patient were to come into the hospital confused and could not make decisions it would go to her children. Patient said she would like her son to be the person, but he won't talk to her. Patient would like to go to [facility] at discharge. SW told patient that it depends on how she does with therapy. SW will also put together some resources for patient. Plan: SNF pending therapy and insurance approval. Liss Bauer FITTER MACHINIST CONCESSION SUPERVISOR
[2022-11-05 14:06] LABS: Pathologist Review Reviewed
[2022-11-05] MEDS: 0.9% Saline Lock 10 ML Syringe IV (14:26)
--- NOTE | 2022-11-05 14:37 | CASEMGMT ---
SW provided patient with information on [facility], [facility]'s housing program, [facility] transportation van, and [employer]. Liss Bauer INSPECTOR OUTSIDE STEAM DISTRIBUTION MIRZA
--- NOTE | 2022-11-05 16:14 | CASEMGMT ---
HIRO sent a referral to [facility] via [facility]. Liss Bauer NECK SKEWER MIRZA
[2022-11-05] MEDS: Atorvastatin Calcium 80 MG Tablet PO (20:39)
[2022-11-06] VITALS (21 sets, daily range): BP systolic 113–130; BP diastolic 62–71; PULSE 58–81; RESP 18–28; TEMP 36.6; O2SAT 91–95
[2022-11-06] MEDS: Ipratropium/Albuterol Sulfate 3 ML AMPUL.NEB INHALATION ×5 (02:10→19:38)
[2022-11-06] MEDS: guaiFENesin 10 ML UDC (200MG/10ML) 20 ML PO (06:01)
--- NOTE | 2022-11-06 06:20 | NURSING ---
Pt was put on venturi mask 12L d/t saturations not maintaining above 90% on high flow. This morning pt was put back on high flow 6L and saturations at 94%
[2022-11-06 06:36] LABS: Absolute Lymphocyte Count 1.33 X10^3/uL (0.83-4.51); Absolute Neutrophil Count 15.9 X10^3/uL (2.0-7.7); Basophil# 0.12 X10^3/uL; Basophil% 0.6 % (0-1); Eosinophil# 0.02 X10^3/uL; Eosinophils% 0.1 % (0-5); Hemoglobin 12.7 g/dL (12.0-15.0); Lymphocyte # 1.33 X10^3/ul (0.83-4.51); Mean Corp Hgb Conc 32.6 g/dL (32-36); Mean Corpuscular Hgb 28.7 pg (27.0-32.0); Mean Platelet Vol. 10.9 fl (6.2-12.0); Monocyte# 1.07 X10^3/uL; Monocyte% 5.7 % (0-10); NRBC Flagged by Analyzer 0 % (0-5); Neutrophil # 15.87 X10^3/uL (2.7-7.7); Neutrophil % 84.1 % (47-70); Platelet Count 299 K/mm3 (150-450); RBC Distribution Width CV 15.7 % (11.6-14.6); RBC Distribution Width SD 51.1 fl (35.1-43.9); Red Blood Count 4.43 M/mm3 (4.2-5.4); White Blood Count 18.9 K/mm3 (4.4-11.0)
[2022-11-06 07:09] LABS: Anion Gap 6 (5-15); BUN 18 mg/dL (7-18); BUN/Creat Ratio 27.4 RATIO (10-20); Calcium,Total 9.1 mg/dL (8.5-10.1); Chloride 98 mmol/L (98-107); Creatinine, Serum 0.66 mg/dL (0.55-1.02); EST Glomerular Filtration Rate 96 mL/min (>60); Est Glom Filt Rate - Afr Amer 116 mL/min (>60); Estimated Creatinine Clearance 47.79 ml/min; Glucose 144 mg/dL (74-106); Potassium 3.9 mmol/L (3.5-5.1); Sodium Level 136 mmol/L (136-145)
--- NOTE | 2022-11-06 08:09 | PCM.PN.HOSP ---
Reason for Visit Reason for Visit: Diagnoses Non-ST elevation (NSTEMI) myocardial infarction (11/04/22) Pneumonia, unspecified organism (11/04/22) Chronic obstructive pulmonary disease with (acute) exacerbation (11/04/22) Acute and chronic respiratory failure with hypoxia (11/04/22) Subjective Subjective Follow-up for acute on chronic hypoxic respiratory failure. Patient is still short of breath. Objective Data Objective Data Vital Signs: Vital Signs Temp Pulse Resp BP Pulse Ox O2 Del Method O2 Flow Rate 97.8 F 58 L 27 H 115/71 91 High Flow 10 11/06/22 02:45 11/06/22 07:40 11/06/22 07:40 11/06/22 02:45 11/06/22 07:40 11/06/22 07:40 11/06/22 07:40 FiO2 50 11/06/22 03:15 Oxygen Flow Rate (L/min) 10 Oxygen Delivery Method High Flow Weight: 150 lb 9.211 oz Body Mass Index (BMI) 25.8 Intake & Output: Intake and Output for Last 24 Hours 11/04/22 11/05/22 11/06/22 23:59 23:59 23:59 Intake Total 305 / 305 1505 / 1505 Output Total 150 / 150 Balance 305 / 305 1355 / 1355 Lab / Micro Data Result Diagrams: 11/06/22 06:16 11/06/22 06:16 Labs: Laboratory Results - last 24 hr 11/04/22 17:20: Diff Path Review Reviewed 11/06/22 06:16: WBC 18.9 H, RBC 4.43, Hgb 12.7, Hct 39.0, MCV 88.0, MCH 28.7, MCHC 32.6, RDW Std Deviation 51.1 H, RDW Coeff of Chris 15.7 H, Plt Count 299, MPV 10.9, Immature Gran % (Auto) 2.500 H, Neut % (Auto) 84.1 H, Lymph % (Auto) 7.0 L, Yates % (Auto) 5.7, Eos % (Auto) 0.1, Baso % (Auto) 0.6, Absolute Neuts (auto) 15.9 H, Absolute Lymphs (auto) 1.33, Nucleated RBC % 0 11/06/22 06:16: Sodium 136, Potassium 3.9, Chloride 98, Carbon Dioxide 32.0, Anion Gap 6, BUN 18, Creatinine 0.66, Estim Creat Clear Calc 47.79, Est GFR (MDRD) Af Amer 116, Est GFR (MDRD) Non-Af 96, BUN/Creatinine Ratio 27.4 H, Glucose 144 H, Calcium 9.1 Micro: Microbiology 11/05/22 06:00 Urine, Clean Catch Legionella Antigen - Final 11/05/22 06:00 Urine, Clean Catch Streptococcus pneumoniae Antigen (M - Final 11/04/22 18:55 Nasal Secretion SARS-CoV-2 Antigen (Rapid) - Final 11/04/22 17:12 Mucosa - Nasopharyngeal Influenza Types A,B Direct FA (DESMOND) - Final Radiography Diagnostic Testing: Radiology Impression Echocardiogram 11/04/22 21:27 Interpretation Summary The left ventricular ejection fraction is 55 %. Stage 2 diastolic dysfunction. Inferior and posterior hypokinesis The left atrium is severely enlarged. Mild-Moderate (1-2+) mitral valve insufficiency. Mild tricuspid valve insufficiency. Right ventricular systolic pressure estimated to be 48 mmHg. Mild pulmonic valve insufficiency identified. Ordering Physician: Campos Dinh Referring Physician: HARISH JOHN Performed By: Mamta Levine, [place] Physical Exam Narrative Seen and examined Patient is still short of breath. Patient had with shortness of breath feeling warmth/fever, URI symptoms of nasal congestion, postnasal drip . Patient is feeling her nose is clogged. high flow oxygen. Physical exam General: Alert, Oriented x3, Cooperative HEENT: Atraumatic, PERRLA, EOMI, Normocephalic Oral:No submandibular tenderness. No Gingival or Mucosal Lesions/ Ulcerations Neck: Supple, No JVD, Negative Carotid Bruits Lungs: Air entry diminished in bilateral lung bases. Mild crepetations. Cardiovascular: Regular Sinus Rhythm, Normal S1, Normal S2, No murmurs. CABG scar Abdomen: Bowel Sounds Present, Soft, Non Tender, Non-Distended : No renal angle tenderness. No suprapubic tenderness. Extremities: B/L 2 + pitting edema, Capillary Refill Less than 3 Seconds Skin: No rashes, No breakdown Musculoskeletal: No Tenderness to Palpation of Joints or Extremities Neurological: Cranial nerves II-XII grossly intact, DTR 2+/4 and Symmetrical, Neuro grossly intact Psych/Mental Status:Flat affect Assessment & Plan Assessment/Plan (1) Acute and chronic respiratory failure with hypoxia: (2) Pneumonia: (3) NSTEMI, initial episode of care: (4) COPD exacerbation: PLAN: Plan 1. Acute on chronic hypoxic respiratory failure secondary to a COPD exacerbation due to bacterial pneumonia: Patient was on 10 L of high flow oxygen in the morning. ? Continue with bronchodilators inhalers and steroids ? Continue with antibiotics, IV Rocephin and Zithromax ? Sputum culture is pending, urine antigens are negative ? History of chronic smoking/tobacco use disorder: Discussed cessation and advised to quit ? She does not wear oxygen at home. Feels clogged nose/URI symptoms therefore Flonase and nasal saline ordered. Incentive spirometry and Pep reinforced. 2. Acute on chronic HFpEF: BNP elevated. Chest x-ray and chest CT although does not show overt pulmonary edema but mild interstitial thickening suggestive of pulmonary congestion. Patient is short of breath. Repeat chest x-ray ordered. Furosemide 20 mg IV x2 given as BP on the low normal side. Heart failure core measures including intake and output, fluid restriction less than 1500 mL, daily weight monitoring, kidney and electrolytes monitoring . Continue furosemide as per tolerated by her hemodynamics. Echo shows EF 55%, stage II diastolic dysfunction, LA severely enlarged. RVSP 48 mmHg. Mild TR. 1-2+ MR. Previous echo in February 2020 shows EF 48% but technically difficult study. LV mildly dilated. 3. CAD status post stent/history of mitral valve repair: Troponins are elevated but flat 211, 100 1820. No significant delta increase. Patient does not have chest pain or pressure. Most likely acute myocardial injury from increased demand ischemia secondary to hypoxia and COPD exacerbation and pneumonia. Probably type II non-STEMI. Patient on aspirin, Brilinta, lisinopril, high intensity statin and metoprolol succinate 4. Hypertension and dyslipidemia: continue with her home blood pressure. Rest as mentioned above DVT: Lovenox Clinical Impression(s) from Imaging Studies Chest X-Ray 11/04/22 17:24 IMPRESSION: 1. Infiltrates at the right lung base and left perihilar region and retrocardiac left lower lobe. Question pneumonia. 2. Stable cardiomegaly with evidence of median sternotomy. Chest CTA 11/04/22 17:48 IMPRESSION: 1. No evidence of pulmonary embolus. 2. No aortic dissection or aneurysm. 3. Mild cardiomegaly with evidence of CABG procedure. 4. Interstitial infiltrates in the lingula and bilateral lower lobes and right middle lobe. There is focal consolidation in the right lower lobe. Associated lower lobe bronchiectasis. Electronically Signed: Ernesto Cedeno DO at 19:20 EDT Reading Location ID and State: [facility] / [place] Tel [phone], Service support , Echocardiogram 11/04/22 21:27 Interpretation Summary The left ventricular ejection fraction is 55 %. Stage 2 diastolic dysfunction. Inferior and posterior hypokinesis The left atrium is severely enlarged. Mild-Moderate (1-2+) mitral valve insufficiency. Mild tricuspid valve insufficiency. Right ventricular systolic pressure estimated to be 48 mmHg. Mild pulmonic valve insufficiency identified. Charges/Coding Visit Charges Inpatient E&M: 66902 Subs Hosp L2
[2022-11-06] MEDS: Metoprolol(XL)Succ 25 MG Tablet PO (08:38)
[2022-11-06] MEDS: Lisinopril 10 MG Tablet PO (08:38)
[2022-11-06] MEDS: Aspirin 81 MG TAB.CHEW PO (08:38)
[2022-11-06] MEDS: amLODIPine 5 MG Tablet PO (08:39)
[2022-11-06] MEDS: Cholecalciferol (VIT D3) 25 MCG TABLET (1,000 UNITS) 50 MCG PO (08:39)
[2022-11-06] MEDS: TICAGRELOR 90 MG TABLET PO ×2 (08:39→21:31)
[2022-11-06] MEDS: 0.9% Saline Lock 10 ML Syringe IV ×3 (08:39→14:01)
[2022-11-06] MEDS: Furosemide 20 MG/2 ML VIAL IV ×2 (08:39→11:42)
[2022-11-06] MEDS: Loratadine 10 MG Tablet PO (08:39)
[2022-11-06] MEDS: Enoxaparin 40 MG/0.4 ML Syringe SC (08:40)
--- NOTE | 2022-11-06 09:32 | RAD_ITS ---
INDICATION: sob EXAMINATION/TECHNIQUE: X-RAY - XR Chest 2 Views COMPARISON: November 04, 2022 5:22 PM FINDINGS: LINES/DEVICES: None. LUNGS: There are left perihilar, left lower lobe, right middle lobe and right lower lobe infiltrates all of which are mildly decreased. MEDIASTINUM AND CARDIOVASCULAR STRUCTURES: [place] post sternotomy, mild cardiomegaly. BONES AND SOFT TISSUES: Unremarkable. RAD/Chest PA and Lateral IMPRESSION: Decreased bilateral infiltrates. Electronically Signed: Sadiq Horton MD, ANGELICA at 14:34 EDT ,
[2022-11-06] MEDS: Sodium Chloride 0.65% 1 SPRAY SPRAY.BTL 2 SPRAY NASAL ×3 (10:47→21:30)
[2022-11-06] MEDS: Polyethylene Glycol 3350 17 GM PACKET PO (10:49)
[2022-11-06] MEDS: Fluticasone 0.05% 1 SPRAY NASAL.SRY 2 SPRAY NASAL ×2 (10:49→21:30)
[2022-11-06] MEDS: Senna/Docusate Sodium 1 Tablet 2 TABLET PO ×2 (10:50→21:31)
--- NOTE | 2022-11-06 15:35 | CASEMGMT ---
Social Work Per communication in [facility], the patient can be accepted to [facility] at time of discharge. Noted therapy evaluations indicating patietn could benefit from continued therapy at discharge. Plan: [facility] for skilled therapy, convalescent stay, once insurance authorization obtained and upon medical stabilization. Social work to follow. -GEOVANY Oneil, KNOCKOUT MAN
[2022-11-06] MEDS: Atorvastatin Calcium 80 MG Tablet PO (21:31)
[2022-11-07] VITALS (13 sets, daily range): BP systolic 119–145; BP diastolic 73–88; PULSE 64–70; RESP 16–28; TEMP 36.1–36.8; O2SAT 88–96
[2022-11-07] MEDS: Ipratropium/Albuterol Sulfate 3 ML AMPUL.NEB INHALATION ×4 (05:59→19:10)
[2022-11-07 06:11] LABS: Hemoglobin 13.7 g/dL (12.0-15.0); Mean Corp Hgb Conc 31.9 g/dL (32-36); Mean Corpuscular Hgb 28.9 pg (27.0-32.0); Mean Corpuscular Volume 90.7 fL (81-99); Mean Platelet Vol. 10.9 fl (6.2-12.0); POSITIVE COUNT YES; POSITIVE MORPHOLOGY YES; Platelet Count 356 K/mm3 (150-450); Red Blood Count 4.74 M/mm3 (4.2-5.4); White Blood Count 23.2 K/mm3 (4.4-11.0)
[2022-11-07 06:18] LABS: Differential Indicated MANUAL DIFF
[2022-11-07] MEDS: Sodium Chloride 0.65% 1 SPRAY SPRAY.BTL 2 SPRAY NASAL ×3 (06:25→21:52)
[2022-11-07 06:37] LABS: Anion Gap 2 (5-15); BUN 23 mg/dL (7-18); BUN/Creat Ratio 31.9 RATIO (10-20); Calcium,Total 9.7 mg/dL (8.5-10.1); Chloride 97 mmol/L (98-107); Creatinine, Serum 0.72 mg/dL (0.55-1.02); EST Glomerular Filtration Rate 86 mL/min (>60); Est Glom Filt Rate - Afr Amer 104 mL/min (>60); Estimated Creatinine Clearance 47.79 ml/min; Glucose 93 mg/dL (74-106); Lymphocyte 8 % (19-41); Metamyelocyte 1 % (0-1); Monocyte 6 % (0-10); Myelocyte 4 % (0-0); Neutrophil-Band 12 % (0-5); Neutrophil-Segmented 69 % (47-70); Platelet Estimate ADEQUATE (ADEQ); Sodium Level 136 mmol/L (136-145); Total Cells Counted 100 (MANUAL DIFF)
[2022-11-07 06:38] LABS: Absolute Lymphocyte Count 1.86 X10^3/uL (0.83-4.51); Absolute Neutrophil Count 18.8 X10^3/uL (2.0-7.7); Lymphocyte # 1.86 X10^3/ul (0.83-4.51); Neutrophil # 18.82 X10^3/uL (2.7-7.7); Red Cell Morphology NORM C+C NORMAL (NORM C&C)
[2022-11-07] MEDS: Fluticasone 0.05% 1 SPRAY NASAL.SRY 2 SPRAY NASAL ×2 (09:54→21:52)
[2022-11-07] MEDS: amLODIPine 5 MG Tablet PO (09:54)
[2022-11-07] MEDS: Cholecalciferol (VIT D3) 25 MCG TABLET (1,000 UNITS) 50 MCG PO (09:54)
[2022-11-07] MEDS: Senna/Docusate Sodium 1 Tablet 2 TABLET PO ×2 (09:54→21:50)
[2022-11-07] MEDS: Polyethylene Glycol 3350 17 GM PACKET PO (09:55)
[2022-11-07] MEDS: Metoprolol(XL)Succ 25 MG Tablet PO (09:55)
[2022-11-07] MEDS: Enoxaparin 40 MG/0.4 ML Syringe SC (09:55)
[2022-11-07] MEDS: Aspirin 81 MG TAB.CHEW PO (09:55)
[2022-11-07] MEDS: TICAGRELOR 90 MG TABLET PO ×2 (09:55→21:51)
[2022-11-07] MEDS: Loratadine 10 MG Tablet PO (09:55)
[2022-11-07] MEDS: Lisinopril 10 MG Tablet PO (10:31)
--- NOTE | 2022-11-07 12:55 | PN.HOSP_ITS ---
Reason for Visit Reason for Visit: Diagnoses Non-ST elevation (NSTEMI) myocardial infarction (11/04/22) Pneumonia, unspecified organism (11/04/22) Chronic obstructive pulmonary disease with (acute) exacerbation (11/04/22) Acute and chronic respiratory failure with hypoxia (11/04/22) Subjective Subjective Follow-up for COPD exacerbation and pneumonia. Objective Data Objective Data Vital Signs: Vital Signs Temp Pulse Resp BP Pulse Ox O2 Del Method O2 Flow Rate 98.1 F 68 28 H 128/73 H 92 Nasal Cannula 5 11/07/22 09:49 11/07/22 11:05 11/07/22 11:05 11/07/22 09:49 11/07/22 11:05 11/07/22 11:05 11/07/22 11:05 FiO2 50 11/06/22 03:15 Oxygen Flow Rate (L/min) 5 Oxygen Delivery Method Nasal Cannula Weight: 150 lb 9.211 oz Body Mass Index (BMI) 25.8 Intake & Output: Intake and Output for Last 24 Hours 11/05/22 11/06/22 11/07/22 23:59 23:59 23:59 Intake Total 1505 / 1505 1000 / 1200 455 / 455 Output Total 150 / 150 Balance 1355 / 1355 1000 / 1200 455 / 455 Lab / Micro Data Result Diagrams: 11/07/22 05:31 11/07/22 05:31 Labs: Laboratory Results - last 24 hr 11/07/22 05:31: WBC 23.2 H, RBC 4.74, Hgb 13.7, Hct 43.0, MCV 90.7, MCH 28.9, MCHC 31.9 L, RDW Std Deviation 54.0 H, RDW Coeff of Chris 16.0 H, Plt Count 356, MPV 10.9, Neut % (Auto) Not Reportable, Absolute Neuts (auto) 18.8 H, Absolute Lymphs (auto) 1.86, Total Counted 100, Neutrophils % (Manual) 69, [place] trophils % 12 H, Lymphocytes % (Manual) 8 L, Monocytes % (Manual) 6, Metamyelocytes % 1, Myelocytes % 4 H, Diff Path Review May , Platelet Estimate ADEQUATE, RBC Morphology NORM C+C 11/07/22 05:31: Sodium 136, Potassium 5.0, Chloride 97 L, Carbon Dioxide 37.0 H, Anion Gap 2 L, BUN 23 H, Creatinine 0.72, Estim Creat Clear Calc 47.79, Est GFR (MDRD) Af Amer 104, Est GFR (MDRD) Non-Af 86, BUN/Creatinine Ratio 31.9 H, Glucose 93, Calcium 9.7 Micro: Microbiology 11/05/22 06:00 Sputum, Expectorated/Coughed Gram Stain - Final 11/05/22 06:00 Sputum, Expectorated/Coughed Respiratory Culture - Final Mixed normal respiratory meli. No Streptococcus pneumoniae, beta-hemolytic Streptococcus or Staphylococcus aureus isolated. 11/05/22 06:00 Urine, Clean Catch Legionella Antigen - Final 11/05/22 06:00 Urine, Clean Catch Streptococcus pneumoniae Antigen (M - Final 11/04/22 18:55 Nasal Secretion SARS-CoV-2 Antigen (Rapid) - Final 11/04/22 17:12 Mucosa - Nasopharyngeal Influenza Types A,B Direct FA (DESMOND) - Final Radiography Diagnostic Testing: Radiology Impression Chest X-Ray 11/06/22 09:32 IMPRESSION: Decreased bilateral infiltrates. Electronically Signed: Sadiq Horton MD, ANGELICA at 14:34 EDT Reading Location ID and State: [facility] / [place] Tel , Service support , Physical Exam Narrative Seen and examined Patient is still short of breath. Oxygen requirement decreased from 10 L to 5 L. Patient complaining of nasal congestion, postnasal drip and clogged nose. High flow oxygen. Physical exam General: Alert, Oriented x3, Cooperative HEENT: Atraumatic, PERRLA, EOMI, Normocephalic Oral:No submandibular tenderness. No Gingival or Mucosal Lesions/ Ulcerations Neck: Supple, No JVD, Negative Carotid Bruits Lungs: Air entry diminished in bilateral lung bases. Mild crepetations. Cardiovascular: Regular Sinus Rhythm, Normal S1, Normal S2, No murmurs. CABG scar Abdomen: Bowel Sounds Present, Soft, Non Tender, Non-Distended : No renal angle tenderness. No suprapubic tenderness. Extremities: B/L 1 + pitting edema, Capillary Refill Less than 3 Seconds Skin: No rashes, No breakdown Musculoskeletal: No Tenderness to Palpation of Joints or Extremities Neurological: Cranial nerves II-XII grossly intact, DTR 2+/4 and Symmetrical, Neuro grossly intact Psych/Mental Status:Flat affect Assessment & Plan Assessment/Plan (1) Acute and chronic respiratory failure with hypoxia: (2) Pneumonia: (3) NSTEMI, initial episode of care: (4) COPD exacerbation: PLAN: Plan 1. Acute on chronic hypoxic respiratory failure secondary to a COPD exacerbation due to bacterial pneumonia: Patient was on 10 L of high flow oxygen in the morning. ? Continue with bronchodilators inhalers and steroids ? Continue with antibiotics, IV Rocephin and Zithromax ? Sputum culture is pending, urine antigens are negative ? History of chronic smoking/tobacco use disorder: Discussed cessation and advised to quit ? She does not wear oxygen at home. Feels clogged nose/URI symptoms therefore Flonase and nasal saline ordered. Incentive spirometry and Pep reinforced. 11/07: Repeat chest x-ray shows bilateral RML, RLL and LLL infiltrates are improving. Sputum culture shows mixed normal respiratory meli. Continue treatment. 2. Acute on chronic HFpEF: BNP elevated. Chest x-ray and chest CT although does not show overt pulmonary edema but mild interstitial thickening suggestive of pulmonary congestion. Patient is short of breath. Repeat chest x-ray ordered. Furosemide 20 mg IV x2 given as BP on the low normal side. Heart failure core measures including intake and output, fluid restriction less than 1500 mL, daily weight monitoring, kidney and electrolytes monitoring . Continue furosemide as per tolerated by her hemodynamics. Echo shows EF 55%, stage II diastolic dysfunction, LA severely enlarged. RVSP 48 mmHg. Mild TR. 1-2+ MR. Previous echo in February 2020 shows EF 48% but technically difficult study. LV mildly dilated. 11/07: Repeat chest x-ray does not show increased fluid. Leg swelling is also improved. Lasix 20 mg IV ordered. 3. CAD status post stent/history of mitral valve repair: Troponins are elevated but flat 211, 100 1820. No significant delta increase. Patient does not have chest pain or pressure. Most likely acute myocardial injury from increased demand ischemia secondary to hypoxia and COPD exacerbation and pneumonia. Probably type II non-STEMI. Patient on aspirin, Brilinta, lisinopril, high intensity statin and metoprolol succinate 4. Hypertension and dyslipidemia: continue with her home blood pressure. Rest as mentioned above DVT: Lovenox Clinical Impression(s) from Imaging Studies Chest X-Ray 11/04/22 17:24 IMPRESSION: 1. Infiltrates at the right lung base and left perihilar region and retrocardiac left lower lobe. Question pneumonia. 2. Stable cardiomegaly with evidence of median sternotomy. Chest CTA 11/04/22 17:48 IMPRESSION: 1. No evidence of pulmonary embolus. 2. No aortic dissection or aneurysm. 3. Mild cardiomegaly with evidence of CABG procedure. 4. Interstitial infiltrates in the lingula and bilateral lower lobes and right middle lobe. There is focal consolidation in the right lower lobe. Associated lower lobe bronchiectasis. Electronically Signed: Ernesto Cedeno DO at 19:20 EDT Reading Location ID and State: [address] [place] [address] Tel [phone], Service support , Echocardiogram 11/04/22 21:27 Interpretation Summary The left ventricular ejection fraction is 55 %. Stage 2 diastolic dysfunction. Inferior and posterior hypokinesis The left atrium is severely enlarged. Mild-Moderate (1-2+) mitral valve insufficiency. Mild tricuspid valve insufficiency. Right ventricular systolic pressure estimated to be 48 mmHg. Mild pulmonic valve insufficiency identified. Charges/Coding Visit Charges Inpatient E&M: 20111 Subs Hosp L2
[2022-11-07] MEDS: 0.9% Saline Lock 10 ML Syringe IV (13:38)
[2022-11-07] MEDS: Furosemide 20 MG/2 ML VIAL IV (13:38)
[2022-11-07] MEDS: Atorvastatin Calcium 80 MG Tablet PO (21:51)
[2022-11-07] MEDS: Azithromycin 250 MG Tablet 500 MG PO (21:51)
[2022-11-08] VITALS (14 sets, daily range): BP systolic 123–127; BP diastolic 72–79; PULSE 63–81; RESP 16–24; TEMP 36.5–36.8; O2SAT 90–98
[2022-11-08] MEDS: Sodium Chloride 0.65% 1 SPRAY SPRAY.BTL 2 SPRAY NASAL ×3 (04:06→21:52)
[2022-11-08] MEDS: Ipratropium/Albuterol Sulfate 3 ML AMPUL.NEB INHALATION ×5 (07:12→23:21)
[2022-11-08 07:27] LABS: Hematocrit 41.4 % (37-47); Hemoglobin 13.6 g/dL (12.0-15.0); Mean Corp Hgb Conc 32.9 g/dL (32-36); Mean Corpuscular Hgb 29.1 pg (27.0-32.0); Mean Corpuscular Volume 88.7 fL (81-99); Mean Platelet Vol. 10.8 fl (6.2-12.0); POSITIVE COUNT YES; POSITIVE MORPHOLOGY YES; Platelet Count 375 K/mm3 (150-450); RBC Distribution Width CV 15.9 % (11.6-14.6); RBC Distribution Width SD 52.2 fl (35.1-43.9); Red Blood Count 4.67 M/mm3 (4.2-5.4); White Blood Count 17.2 K/mm3 (4.4-11.0)
[2022-11-08 07:50] LABS: Differential Indicated MANUAL DIFF
[2022-11-08] MEDS: Cholecalciferol (VIT D3) 25 MCG TABLET (1,000 UNITS) 50 MCG PO (08:07)
[2022-11-08] MEDS: Loratadine 10 MG Tablet PO (08:07)
[2022-11-08] MEDS: Aspirin 81 MG TAB.CHEW PO (08:07)
[2022-11-08] MEDS: TICAGRELOR 90 MG TABLET PO ×2 (08:07→21:54)
[2022-11-08] MEDS: Enoxaparin 40 MG/0.4 ML Syringe SC (08:08)
[2022-11-08] MEDS: amLODIPine 5 MG Tablet PO (08:08)
[2022-11-08] MEDS: Metoprolol(XL)Succ 25 MG Tablet PO (08:08)
[2022-11-08] MEDS: Senna/Docusate Sodium 1 Tablet 2 TABLET PO ×2 (08:08→21:54)
[2022-11-08] MEDS: Lisinopril 10 MG Tablet PO (08:09)
[2022-11-08] MEDS: Fluticasone 0.05% 1 SPRAY NASAL.SRY 2 SPRAY NASAL ×2 (08:09→21:51)
[2022-11-08 08:35] LABS: Anion Gap 5 (5-15); BUN 21 mg/dL (7-18); BUN/Creat Ratio 37.2 RATIO (10-20); Calcium,Total 9.6 mg/dL (8.5-10.1); Chloride 98 mmol/L (98-107); Creatinine, Serum 0.56 mg/dL (0.55-1.02); EST Glomerular Filtration Rate 114 mL/min (>60); Est Glom Filt Rate - Afr Amer 138 mL/min (>60); Estimated Creatinine Clearance 47.79 ml/min; Glucose 133 mg/dL (74-106); Potassium 4.7 mmol/L (3.5-5.1); Sodium Level 135 mmol/L (136-145)
--- NOTE | 2022-11-08 08:51 | CASEMGMT ---
Discharge Planning Updates sent to [facility] for precert to be submitted. Jennifer Wolf
[2022-11-08 09:41] LABS: Lymphocyte 5 % (19-41); Metamyelocyte 1 % (0-1); Monocyte 2 % (0-10); Myelocyte 1 % (0-0); Neutrophil-Segmented 86 % (47-70); Promyelocyte 5 % (0-0); Total Cells Counted 100 (MANUAL DIFF)
[2022-11-08 09:42] LABS: Absolute Neutrophil Count 14.8 X10^3/uL (2.0-7.7); Platelet Estimate ADEQUATE (ADEQ); Red Cell Morphology NORM C+C NORMAL (NORM C&C)
--- NOTE | 2022-11-08 09:50 | CASEMGMT ---
Sw informed patient that [facility] accepted, but will need to recieve precert once closer to being medically ready for discharge. Patient reports that she is still receptive to going to [facility]. Sw informed patient that [facility] is a smoke free facility and asked patient if she is okay with that. Patient stated that she is okay that facility is smoke free and stated I need to quit anyway. Plan: touch base with [facility], provide updates and request precert. Whitley Iyer, SENIOR ELECTRONICS TECHNICIAN, TUBE SIZER AND CUTTER OPERATOR
[2022-11-08 13:30] LABS: Pathologist Review Reviewed
--- NOTE | 2022-11-08 18:07 | PN_ITS ---
Subjective Subjective Patient seen and examined. She had no complaint. Review of symptoms otherwise negative. Her breathing is improving slowly. She denies any cough or chest pain, palpitations, dizziness or nausea or vomiting. Review of systems otherwise negative. Objective Data Objective Data Vital Signs: Vital Signs Temp Pulse Resp BP Pulse Ox O2 Del Method O2 Flow Rate 98.2 F 69 21 H 126/73 H 93 Nasal Cannula 4 11/08/22 13:54 11/08/22 16:25 11/08/22 16:25 11/08/22 13:54 11/08/22 13:54 11/08/22 14:00 11/08/22 13:54 FiO2 50 11/06/22 03:15 Oxygen Flow Rate (L/min) 4 Oxygen Delivery Method Nasal Cannula Weight: 150 lb 9.211 oz Body Mass Index (BMI) 25.8 Intake & Output: Intake and Output for Last 24 Hours 11/06/22 11/07/22 11/08/22 23:59 23:59 23:59 Intake Total 1000 / 1200 1725 / 1725 50 / 50 Balance 1000 / 1200 1725 / 1725 50 / 50 Lab / Micro Data Result Diagrams: 11/08/22 06:39 11/08/22 06:39 Labs: Laboratory Results - last 24 hr 11/07/22 05:31: Diff Path Review Reviewed 11/08/22 06:39: WBC 17.2 H, RBC 4.67, Hgb 13.6, Hct 41.4, MCV 88.7, MCH 29.1, MCHC 32.9, RDW Std Deviation 52.2 H, RDW Coeff of Chris 15.9 H, Plt Count 375, MPV 10.8, Neut % (Auto) Not Reportable, Absolute Neuts (auto) 14.8 H, Absolute Lymphs (auto) 0.90, Total Counted 100, Neutrophils % (Manual) 86 H, Lymphocytes % (Manual) 5 L, Monocytes % (Manual) 2, Metamyelocytes % 1, Myelocytes % 1 H, Promyelocytes % 5 H, Diff Path Review May foll, Platelet Estimate ADEQUATE, RBC Morphology NORM C+C 11/08/22 06:39: Sodium 135 L, Potassium 4.7, Chloride 98, Carbon Dioxide 32.0, Anion Gap 5, BUN 21 H, Creatinine 0.56, Estim Creat Clear Calc 47.79, Est GFR (MDRD) Af Amer 138, Est GFR (MDRD) Non-Af 114, BUN/Creatinine Ratio 37.2 H, Glucose 133 H, Calcium 9.6 Micro: Microbiology 11/05/22 06:00 Sputum, Expectorated/Coughed Gram Stain - Final 11/05/22 06:00 Sputum, Expectorated/Coughed Respiratory Culture - Final Mixed normal respiratory meli. No Streptococcus pneumoniae, beta-hemolytic Streptococcus or Staphylococcus aureus isolated. 11/05/22 06:00 Urine, Clean Catch Legionella Antigen - Final 11/05/22 06:00 Urine, Clean Catch Streptococcus pneumoniae Antigen (M - Final 11/04/22 18:55 Nasal Secretion SARS-CoV-2 Antigen (Rapid) - Final 11/04/22 17:12 Mucosa - Nasopharyngeal Influenza Types A,B Direct FA (DESMOND) - Final Physical Exam Const alert, oriented x3 and no apparent distress HEENT normocephalic, head/scalp atraumatic, moist oral mucous membranes and oropharynx normal Eyes PERRL and EOMs intact bilaterally Neck nuchal rigidity, no lymphadenopathy and supple Lymph Lymphatic: no lymphadenopathy noted and no lymphedema noted Resp Resp Narrative: Diminished breath sounds bibasally. No wheezes or crackles. On 4 L of oxygen by nasal cannula. Cardio regular rate, regular rhythm, S1 normal heart sound, S2 normal heart sound and no murmurs GI normal to inspection, nondistended, normoactive bowel sounds, soft to palpation and non-tender Extremity normal capillary refill, no clubbing, cyanosis or edema and no calf tenderness Skin General Skin Exam: no breakdown Neuro CN's II-XII intact bilaterally, no focal motor deficits, no sensory deficits noted and deep tendon reflexes 2+ bilaterally Motor Exam: strength 5/5 throughout Psych thought process normal and cooperative Appearance: appropriate Assessment & Plan Assessment/Plan (1) COPD exacerbation: (2) Acute and chronic respiratory failure with hypoxia: PLAN: Plan #Acute on chronic hypoxic respiratory failure due to COPD exacerbation * On breathing treatments bronchodilators and steroids: On IV ceftriaxone and azithromycin. * Chest x-ray shows bilateral infiltrates. Sputum cultures grew mixed normal meli. Continue on IV ceftriaxone and azithromycin. * #Acute on chronic heart failure preserved ejection fraction: On IV Lasix. 2D echo showed EF of 55%. Monitor intake and output. Fluid restriction to 1500 cc daily. #CAD s/p stent: * Has a history of mitral valve repair as well. * Troponins were mildly elevated but remained flat. He did not have any chest pain or pressure. Was likely thought to be demand ischemia from hypoxia and COPD exacerbation. On aspirin and Brilinta as well as lisinopril and high intensity statin as well as metoprolol. * #S/p mitral valve repair: Stable #Hyperlipidemia: On statin #Hypertension: On metoprolol and amlodipine DVT prophylaxis: Lovenox Charges/Coding Visit Charges Inpatient E&M: 55268 Subs Hosp L2
[2022-11-08] MEDS: 0.9% Saline Lock 10 ML Syringe IV (21:46)
[2022-11-08] MEDS: Atorvastatin Calcium 80 MG Tablet PO (21:54)
[2022-11-08] MEDS: Azithromycin 250 MG Tablet 500 MG PO (21:55)
[2022-11-09] VITALS (13 sets, daily range): BP systolic 127–149; BP diastolic 54–84; PULSE 67–82; RESP 16–20; TEMP 36.4–36.6; O2SAT 92–98
[2022-11-09] MEDS: Ipratropium/Albuterol Sulfate 3 ML AMPUL.NEB INHALATION ×6 (03:39→22:38)
[2022-11-09] MEDS: 0.9% Saline Lock 10 ML Syringe IV (05:20)
[2022-11-09] MEDS: Sodium Chloride 0.65% 1 SPRAY SPRAY.BTL 2 SPRAY NASAL ×3 (05:22→20:27)
[2022-11-09 06:52] LABS: Hemoglobin 13.7 g/dL (12.0-15.0); Mean Corp Hgb Conc 32.6 g/dL (32-36); Mean Corpuscular Hgb 28.9 pg (27.0-32.0); Mean Corpuscular Volume 88.6 fL (81-99); Mean Platelet Vol. 10.6 fl (6.2-12.0); POSITIVE COUNT YES; POSITIVE MORPHOLOGY YES; Platelet Count 377 K/mm3 (150-450); RBC Distribution Width CV 15.7 % (11.6-14.6); RBC Distribution Width SD 51.2 fl (35.1-43.9); Red Blood Count 4.74 M/mm3 (4.2-5.4); White Blood Count 17.7 K/mm3 (4.4-11.0)
[2022-11-09 07:07] LABS: Differential Indicated MANUAL DIFF
[2022-11-09 07:22] LABS: Anion Gap 6 (5-15); BUN 21 mg/dL (7-18); BUN/Creat Ratio 35.5 RATIO (10-20); Calcium,Total 9.5 mg/dL (8.5-10.1); Chloride 97 mmol/L (98-107); Creatinine, Serum 0.59 mg/dL (0.55-1.02); EST Glomerular Filtration Rate 108 mL/min (>60); Est Glom Filt Rate - Afr Amer 130 mL/min (>60); Estimated Creatinine Clearance 47.79 ml/min; Glucose 130 mg/dL (74-106); Potassium 4.7 mmol/L (3.5-5.1); Sodium Level 135 mmol/L (136-145)
[2022-11-09 07:58] LABS: Lymphocyte 7 % (19-41); Metamyelocyte 3 % (0-1); Monocyte 2 % (0-10); Myelocyte 2 % (0-0); Neutrophil-Band 2 % (0-5); Neutrophil-Segmented 84 % (47-70); Total Cells Counted 100 (MANUAL DIFF)
[2022-11-09 07:59] LABS: Platelet Estimate ADEQUATE (ADEQ); Red Cell Morphology NORM C+C NORMAL (NORM C&C)
[2022-11-09 08:00] LABS: Absolute Neutrophil Count 15.2 X10^3/uL (2.0-7.7)
[2022-11-09 08:01] LABS: Absolute Lymphocyte Count 1.24 X10^3/uL (0.83-4.51); Lymphocyte # 1.24 X10^3/ul (0.83-4.51)
[2022-11-09] MEDS: Senna/Docusate Sodium 1 Tablet 2 TABLET PO ×2 (08:21→20:28)
[2022-11-09] MEDS: Cholecalciferol (VIT D3) 25 MCG TABLET (1,000 UNITS) 50 MCG PO (08:21)
[2022-11-09] MEDS: Lisinopril 10 MG Tablet PO (08:21)
[2022-11-09] MEDS: amLODIPine 5 MG Tablet PO (08:22)
[2022-11-09] MEDS: TICAGRELOR 90 MG TABLET PO ×2 (08:22→20:26)
[2022-11-09] MEDS: Fluticasone 0.05% 1 SPRAY NASAL.SRY 2 SPRAY NASAL ×2 (08:22→20:26)
[2022-11-09] MEDS: Aspirin 81 MG TAB.CHEW PO (08:22)
[2022-11-09] MEDS: Loratadine 10 MG Tablet PO (08:22)
[2022-11-09] MEDS: Metoprolol(XL)Succ 25 MG Tablet PO (08:22)
[2022-11-09] MEDS: Enoxaparin 40 MG/0.4 ML Syringe SC (08:23)
--- NOTE | 2022-11-09 09:19 | CASEMGMT ---
Addendum entered by Whitley Iyer 11/09/22 09:59: [facility] responded saying patient's precert will be good for 48 hours. It was received on 11/08, and will be good through 11/10. Provider updated. DEDRICK Mock, JARETH Original Note: Precert received for patient to be transferred to [facility] when medically ready. Patient informed. Sw informed during rounds that patient is not medically ready for discharge today, possibly tomorrow. Sw sent message to [facility] via [email or web address] to determine hwo long precert is good for. DEDRICK Mock, POLICE OFFICER
--- NOTE | 2022-11-09 09:34 | PN_ITS ---
Subjective Subjective Patient seen and examined. She states she is improving but is not back to her baseline. She still is coughing and states she is expectorating a bit. She denies any dizziness, nausea vomiting or any other symptoms. Review of systems otherwise negative. She has made hemodynamically stable. Objective Data Objective Data Vital Signs: Vital Signs Temp Pulse Resp BP Pulse Ox O2 Del Method O2 Flow Rate 97.9 F 68 20 H 149/84 H 97 Nasal Cannula 3 11/09/22 03:55 11/09/22 08:22 11/09/22 07:37 11/09/22 03:55 11/09/22 07:37 11/09/22 07:55 11/09/22 07:37 FiO2 50 11/06/22 03:15 Oxygen Flow Rate (L/min) 3 Oxygen Delivery Method Nasal Cannula Weight: 150 lb 9.211 oz Body Mass Index (BMI) 25.8 Intake & Output: Intake and Output for Last 24 Hours 11/07/22 11/08/22 11/09/22 23:59 23:59 23:59 Intake Total 1725 / 1725 50 / 50 50 / 50 Balance 1725 / 1725 50 / 50 50 / 50 Lab / Micro Data Result Diagrams: 11/09/22 06:02 11/09/22 06:02 Labs: Laboratory Results - last 24 hr 11/07/22 05:31: Diff Path Review Reviewed 11/08/22 06:39: Absolute Neuts (auto) 14.8 H, Absolute Lymphs (auto) 0.90, Total Counted 100, Neutrophils % (Manual) 86 H, Lymphocytes % (Manual) 5 L, Monocytes % (Manual) 2, Metamyelocytes % 1, Myelocytes % 1 H, Promyelocytes % 5 H, Diff Path Review May , Platelet Estimate ADEQUATE, RBC Morphology NORM C+C 11/09/22 06:02: WBC 17.7 H, RBC 4.74, Hgb 13.7, Hct 42.0, MCV 88.6, MCH 28.9, MCHC 32.6, RDW Std Deviation 51.2 H, RDW Coeff of Chris 15.7 H, Plt Count 377, MPV 10.6, Neut % (Auto) Not Reportable, Absolute Neuts (auto) 15.2 H, Absolute Lymphs (auto) 1.24, Total Counted 100, Neutrophils % (Manual) 84 H, Band Neutrophils % 2, Lymphocytes % (Manual) 7 L, Monocytes % (Manual) 2, Metamyelocytes % 3 H, Myelocytes % 2 H, Diff Path Review October, Platelet Estimate ADEQUATE, RBC Morphology NORM C+C 11/09/22 06:02: Sodium 135 L, Potassium 4.7, Chloride 97 L, Carbon Dioxide 32.0, Anion Gap 6, BUN 21 H, Creatinine 0.59, Estim Creat Clear Calc 47.79, Est GFR (MDRD) Af Amer 130, Est GFR (MDRD) Non-Af 108, BUN/Creatinine Ratio 35.5 H, Glucose 130 H, Calcium 9.5 Micro: Microbiology 11/05/22 06:00 Sputum, Expectorated/Coughed Gram Stain - Final 11/05/22 06:00 Sputum, Expectorated/Coughed Respiratory Culture - Final Mixed normal respiratory meli. No Streptococcus pneumoniae, beta-hemolytic Streptococcus or Staphylococcus aureus isolated. 11/05/22 06:00 Urine, Clean Catch Legionella Antigen - Final 11/05/22 06:00 Urine, Clean Catch Streptococcus pneumoniae Antigen (M - Final 11/04/22 18:55 Nasal Secretion SARS-CoV-2 Antigen (Rapid) - Final 11/04/22 17:12 Mucosa - Nasopharyngeal Influenza Types A,B Direct FA (DESMOND) - Final Physical Exam Const alert, oriented x3 and no apparent distress HEENT normocephalic, head/scalp atraumatic, moist oral mucous membranes and oropharynx normal Eyes PERRL and EOMs intact bilaterally Neck nuchal rigidity, no lymphadenopathy and supple Lymph Lymphatic: no lymphadenopathy noted and no lymphedema noted Resp Resp Narrative: Diminished breath sounds bibasally. No wheezes or crackles. On 3L of oxygen by nasal cannula. Cardio regular rate, regular rhythm, S1 normal heart sound, S2 normal heart sound and no murmurs GI normal to inspection, nondistended, normoactive bowel sounds, soft to palpation and non-tender Extremity normal capillary refill, no clubbing, cyanosis or edema and no calf tenderness Skin General Skin Exam: no breakdown Neuro CN's II-XII intact bilaterally, no focal motor deficits, no sensory deficits noted and deep tendon reflexes 2+ bilaterally Motor Exam: strength 5/5 throughout Psych thought process normal and cooperative Appearance: appropriate Assessment & Plan Assessment/Plan (1) COPD exacerbation: (2) Acute and chronic respiratory failure with hypoxia: PLAN: Plan #Acute on chronic hypoxic respiratory failure due to COPD exacerbation * On breathing treatments bronchodilators and steroids * On IV ceftriaxone and azithromycin. * Chest x-ray shows bilateral infiltrates. Sputum cultures grew mixed normal meli. Continue on IV ceftriaxone and azithromycin. * #Acute on chronic heart failure preserved ejection fraction: * On IV Lasix. 2D echo showed EF of 55% with stage II diastolic dysfunction and inferior and posterior hypokinesis. Left atrium was severely enlarged and normal right atrium. RVSP of 48 mmHg.. Monitor intake and output. Fluid restriction to 1500 cc daily. #CAD s/p stent: * Has a history of mitral valve repair as well. * Troponins were mildly elevated but remained flat. * He did not have any chest pain or pressure. Was likely thought to be demand ischemia from hypoxia and COPD exacerbation. * On aspirin and Brilinta as well as lisinopril and high intensity statin as well as metoprolol. * 2D echo did show stage II diastolic dysfunction and inferior and posterior hypokinesis. This appears to have been present on previous echoes. * #S/p mitral valve repair: Stable #Hyperlipidemia: On statin #Hypertension: On metoprolol and amlodipine DVT prophylaxis: Lovenox Disposition: Anticipate discharge over the next 24 to 48 hours. Charges/Coding Visit Charges Inpatient E&M: 13470 Subs Hosp L2
[2022-11-09 13:50] LABS: Pathologist Review Reviewed
[2022-11-09 14:15] LABS: Pathologist Review Reviewed
[2022-11-09] MEDS: Atorvastatin Calcium 80 MG Tablet PO (20:27)
[2022-11-09] MEDS: Azithromycin 250 MG Tablet 500 MG PO (20:28)
[2022-11-09] MEDS: guaiFENesin 10 ML UDC (200MG/10ML) 20 ML PO (20:29)
[2022-11-10] VITALS (10 sets, daily range): BP systolic 130–147; BP diastolic 61–82; PULSE 58–80; RESP 16–20; TEMP 35.8–36.6; O2SAT 88–100
[2022-11-10] MEDS: 0.9% Saline Lock 10 ML Syringe IV ×2 (05:33→14:31)
[2022-11-10] MEDS: Sodium Chloride 0.65% 1 SPRAY SPRAY.BTL 2 SPRAY NASAL (05:33)
[2022-11-10 06:30] LABS: Hematocrit 48.8 % (37-47); Hemoglobin 15.5 g/dL (12.0-15.0); Mean Corp Hgb Conc 31.8 g/dL (32-36); Mean Corpuscular Hgb 28.5 pg (27.0-32.0); Mean Corpuscular Volume 89.7 fL (81-99); Mean Platelet Vol. 10.1 fl (6.2-12.0); POSITIVE COUNT YES; POSITIVE MORPHOLOGY YES; Platelet Count 441 K/mm3 (150-450); RBC Distribution Width CV 15.9 % (11.6-14.6); RBC Distribution Width SD 51.9 fl (35.1-43.9); Red Blood Count 5.44 M/mm3 (4.2-5.4); White Blood Count 21.5 K/mm3 (4.4-11.0)
[2022-11-10 06:36] LABS: Differential Indicated MANUAL DIFF
[2022-11-10] MEDS: Ipratropium/Albuterol Sulfate 3 ML AMPUL.NEB INHALATION ×3 (06:49→14:51)
[2022-11-10 07:05] LABS: Metamyelocyte 1 % (0-1); Myelocyte 3 % (0-0); Neutrophil-Band 2 % (0-5); Neutrophil-Segmented 81 % (47-70); Total Cells Counted 100 (MANUAL DIFF)
[2022-11-10 07:06] LABS: Lymphocyte 9 % (19-41); Monocyte 4 % (0-10); Platelet Estimate ADEQUATE (ADEQ); Red Cell Morphology NORM C+C NORMAL (NORM C&C)
[2022-11-10 07:07] LABS: Anion Gap 5 (5-15); BUN 25 mg/dL (7-18); BUN/Creat Ratio 38.4 RATIO (10-20); Calcium,Total 9.4 mg/dL (8.5-10.1); Chloride 97 mmol/L (98-107); Creatinine, Serum 0.65 mg/dL (0.55-1.02); EST Glomerular Filtration Rate 97 mL/min (>60); Est Glom Filt Rate - Afr Amer 117 mL/min (>60); Estimated Creatinine Clearance 47.79 ml/min; Glucose 99 mg/dL (74-106); Potassium 4.6 mmol/L (3.5-5.1); Sodium Level 133 mmol/L (136-145)
[2022-11-10 07:08] LABS: Absolute Lymphocyte Count 1.94 X10^3/uL (0.83-4.51); Absolute Neutrophil Count 17.9 X10^3/uL (2.0-7.7); Lymphocyte # 1.94 X10^3/ul (0.83-4.51); Neutrophil # 17.87 X10^3/uL (2.7-7.7)
[2022-11-10] MEDS: Cholecalciferol (VIT D3) 25 MCG TABLET (1,000 UNITS) 50 MCG PO (09:05)
[2022-11-10] MEDS: TICAGRELOR 90 MG TABLET PO (09:05)
[2022-11-10] MEDS: Fluticasone 0.05% 1 SPRAY NASAL.SRY 2 SPRAY NASAL (09:05)
[2022-11-10] MEDS: Enoxaparin 40 MG/0.4 ML Syringe SC (09:06)
[2022-11-10] MEDS: Senna/Docusate Sodium 1 Tablet 2 TABLET PO (09:06)
[2022-11-10] MEDS: Loratadine 10 MG Tablet PO (09:06)
[2022-11-10] MEDS: amLODIPine 5 MG Tablet PO (09:06)
[2022-11-10] MEDS: Aspirin 81 MG TAB.CHEW PO (09:07)
[2022-11-10] MEDS: Lisinopril 10 MG Tablet PO (09:07)
[2022-11-10] MEDS: Polyethylene Glycol 3350 17 GM PACKET PO (09:07)
[2022-11-10] MEDS: Metoprolol(XL)Succ 25 MG Tablet PO (09:07)
--- NOTE | 2022-11-10 11:24 | DS.PCM_ITS ---
Providers Date of Admission: 11/04/22 Date of Discharge: 11/10/22 Primary Care Physician: Dr. Blanca Harris MD Reason For Visit: PNEUMONIA Diagnosis Discharge Diagnosis (1) COPD exacerbation: Status: Chronic Code(s): J44.1 - Chronic obstructive pulmonary disease with (acute) exacerbation (2) Acute and chronic respiratory failure with hypoxia: Status: Chronic Code(s): J96.21 - Acute and chronic respiratory failure with hypoxia Plan #Acute on chronic hypoxic respiratory failure due to COPD exacerbation * On breathing treatments bronchodilators and steroids * On IV ceftriaxone and azithromycin. * Chest x-ray shows bilateral infiltrates. Sputum cultures grew mixed normal meli. Continue on IV ceftriaxone and azithromycin. * #Acute on chronic heart failure preserved ejection fraction: * On IV Lasix. 2D echo showed EF of 55% with stage II diastolic dysfunction and inferior and posterior hypokinesis. Left atrium was severely enlarged and normal right atrium. RVSP of 48 mmHg.. Monitor intake and output. Fluid restriction to 1500 cc daily. #CAD s/p stent: * Has a history of mitral valve repair as well. * Troponins were mildly elevated but remained flat. * He did not have any chest pain or pressure. Was likely thought to be demand ischemia from hypoxia and COPD exacerbation. * On aspirin and Brilinta as well as lisinopril and high intensity statin as well as metoprolol. * 2D echo did show stage II diastolic dysfunction and inferior and posterior hypokinesis. This appears to have been present on previous echoes. * #S/p mitral valve repair: Stable #Hyperlipidemia: On statin #Hypertension: On metoprolol and amlodipine DVT prophylaxis: Lovenox Disposition: Anticipate discharge over the next 24 to 48 hours. Medications at Discharge Home Medications amlodipine 5 mg tablet 5 mg PO DAILY 03/20/17 aspirin 81 mg chewable tablet 81 mg PO DAILY 03/20/17 atorvastatin 80 mg tablet 80 mg PO QHS 03/20/17 lisinopril 10 mg tablet 10 mg PO DAILY 03/20/17 albuterol sulfate 90 mcg/actuation aerosol inhaler 1 - 2 puff inhalation Q4H PRN PRN Wheezing ##1 03/31/17 cholecalciferol (vitamin D3) 50 mcg (2,000 unit) capsule 50 mcg PO DAILY 04/16/20 metoprolol succinate 25 mg tablet,extended release 24 hr 25 mg PO DAILY 08/18/21 ticagrelor 90 mg tablet (Brilinta) See Rx Instructions .Route .COMPLEX #180 tabs 10/06/22 loratadine 10 mg disintegrating tablet (Claritin RediTabs) 10 mg PO DAILY #60 tabs 11/01/22 prednisone 20 mg tablet 40 mg PO DAILY #10 tabs 11/10/22 Hospital Course Operations None Procedures None Summary of Care Provided Minutes Spent on Discharge: 50 Hospital Course: Patient is a 67-year-old female with a past medical history as outlined who was admitted through the ED on 11/04/2022 with a complaint of shortness of breath which started a few days prior to admission. He had recently been diagnosed with COPD exacerbation and started on prednisone. On admission she was tachypneic and hypoxic with a pulse ox of 84% on room air. Chest x-ray showed right upper lobe infiltrate. She was started on IV ceftriaxone and azithromycin and admitted and managed for acute hypoxic respiratory failure due to COPD exacerbation and community-acquired pneumonia. Troponins were also elevated which was thought to be due to demand ischemia from hypoxia. She had 2D echo which showed EF of 55% with stage II diastolic dysfunction and inferior and p osterior hypokinesis which was similar to previous 2D echo done in 2019 which showed severely hypokinetic left ventricle. BNP was also elevated and she was diuresed with IV Lasix. She was continued on her dual antiplatelets. Patient gradually improved and she felt better. [facility]. She is to follow-up with her primary care doctor and follow-up with cardiology on outpatient basis as well. Patient seen and examined prior to discharge. She had no complaints and felt much better. She had been weaned down to 2 L of oxygen. Review of systems otherwise negative. Labs and vitals reviewed. Home medication reviewed and reconciled. She was discharged on PO prednisone 40mg daily x 5 days. Physical Exam Const alert, oriented x3 and no apparent distress HEENT normocephalic, head/scalp atraumatic, hearing grossly normal bilaterally, moist oral mucous membranes and oropharynx normal Mouth: oral and palatal mucosa normal Eyes PERRL and EOMs intact bilaterally Neck nuchal rigidity, no lymphadenopathy and supple Lymph Lymphatic: no lymphadenopathy noted and no lymphedema noted Resp Resp Narrative: Diminished breath sounds bibasally. No wheezes or crackles. On 2L of oxygen by nasal cannula. Cardio regular rate, regular rhythm, S1 normal heart sound, S2 normal heart sound and no murmurs GI normal to inspection, nondistended, normoactive bowel sounds, soft to palpation and non-tender Extremity normal to inspection, full ROM, normal capillary refill, no clubbing, cyanosis or edema and no calf tenderness Skin no rashes or lesions noted General Skin Exam: no breakdown Neuro oriented x3, CN's II-XII intact bilaterally, moves all extremities, no focal motor deficits, no sensory deficits noted and deep tendon reflexes 2+ bilaterally Motor Exam: strength 5/5 throughout Psych thought process normal and cooperative Appearance: appropriate Weight / BMI Weight Weight: 150 lb 9.211 oz Body Mass Index (BMI) 25.8 ABG / Lab / Microbiology Data Result Diagrams: 11/10/22 05:55 11/10/22 05:55 Laboratory: Laboratory Results - last 24 hr 11/08/22 06:39: Diff Path Review Reviewed 11/09/22 06:02: Diff Path Review Reviewed 11/10/22 05:55: WBC 21.5 H, RBC 5.44 H, Hgb 15.5 H, Hct 48.8 H, MCV 89.7, MCH 28.5, MCHC 31.8 L, RDW Std Deviation 51.9 H, RDW Coeff of Chris 15.9 H, Plt Count 441, MPV 10.1, Neut % (Auto) Not Reportable, Absolute Neuts (auto) 17.9 H, Absolute Lymphs (auto) 1.94, Total Counted 100, Neutrophils % (Manual) 81 H, Band Neutrophils % 2, Lymphocytes % (Manual) 9 L, Monocytes % (Manual) 4, Metamyelocytes % 1, Myelocytes % 3 H, Diff Path Review May foll, Platelet Estimate ADEQUATE, RBC Morphology NORM C+C 11/10/22 05:55: Sodium 133 L, Potassium 4.6, Chloride 97 L, Carbon Dioxide 31.0, Anion Gap 5, BUN 25 H, Creatinine 0.65, Estim Creat Clear Calc 47.79, Est GFR (MDRD) Af Amer 117, Est GFR (MDRD) Non-Af 97, BUN/Creatinine Ratio 38.4 H, Glucose 99, Calcium 9.4 Microbiology: Microbiology 11/10/22 10:00 Nasal Secretion SARS-CoV-2 Antigen (Rapid) - Final 11/05/22 06:00 Sputum, Expectorated/Coughed Gram Stain - Final 11/05/22 06:00 Sputum, Expectorated/Coughed Respiratory Culture - Final Mixed normal respiratory meli. No Streptococcus pneumoniae, beta-hemolytic Streptococcus or Staphylococcus aureus isolated. 11/05/22 06:00 Urine, Clean Catch Legionella Antigen - Final 11/05/22 06:00 Urine, Clean Catch Streptococcus pneumoniae Antigen (M - Final 11/04/22 18:55 Nasal Secretion SARS-CoV-2 Antigen (Rapid) - Final 11/04/22 17:12 Mucosa - Nasopharyngeal Influenza Types A,B Direct FA (DESMOND) - Final D/C Instructions Discharge Diet: Low fat / Low cholesterol Discharge Activity: Return to Normal Activity Weight Bearing Status: Weight bearing as tolerated Call your doctor if you observe: Fever of 101 or Higher, Shortness of breath, Dizziness, Swelling in the ankles, Chest pain and Increased palpitations (irregular heartbeat) Meaningful Use Info Meaningful Use Diagnoses (Choose all that apply): None applicable Discharge Plan Admission Admit Date/Time: 11/04/22 19:53 Primary Reason for Your Visit: acute hypoxic respiratory failure due to COPD and pneuomonia Attending Provider: Marisa Vickers Primary Care Provider: Blanca Harris Consulting Providers: Camops Dinh ; Carlos Calixto Discharge Orders/Prescriptions Prescriptions: New prednisone 20 mg tablet 40 mg PO DAILY Qty: 10 0RF Continued cholecalciferol (vitamin D3) 50 mcg (2,000 unit) capsule 50 mcg PO DAILY metoprolol succinate 25 mg tablet extended release 24 hr 25 mg PO DAILY atorvastatin 80 MG tablet 80 mg PO QHS Label Comments: amlodipine 5 MG tablet 5 mg PO DAILY Label Comments: lisinopril 10 MG tablet 10 mg PO DAILY Label Comments: aspirin 81 MG tablet,chewable 81 mg PO DAILY albuterol sulfate 1 INHALER inhaler 1 - 2 puff INHALATION Q4H PRN PRN (Reason: Wheezing) Qty: 1 0RF loratadine [Claritin RediTabs] 10 mg tablet,disintegrating 10 mg PO DAILY Qty: 60 0RF Brilinta 90 mg tablet See Rx Instructions .ROUTE .COMPLEX Qty: 180 3RF Dose Instruction: TAKE 1 TABLET BY MOUTH TWICE A DAY Rx Instructions: TAKE 1 TABLET BY MOUTH TWICE A DAY Referrals / Follow Up: Blanca Harris MD [Primary Care Provider] - Within 2 Weeks Disposition Disposition (needs filled in before D/C Order can be placed): [facility] Charges/Coding Visit Charges Inpatient E&M: 60607 Disch Hosp >30min
[2022-11-10 11:50] LABS: Pathologist Review Reviewed
--- NOTE | 2022-11-10 14:25 | TREXTCAR_ITS ---
Diet Diet Order/Speech Therapy: 11/04/22 21:27 Diet: Cardiac - Heart Healthy Food consistency:: Regular Liquid Consistency:: Regular/Thin Is pt able to select menu?: Yes Routine Orders/Code Status Enema Type: Fleetz Enema Frequency: Daily PRN Suppository Type: Dulcolax 10mg Suppository Frequency: Daily PRN Keep PO Greater than or Equal to (%): 90 Therapies Weight Bearing: Weight bearing as tolerated Physical Therapy: Eval and Treat Occupational Therapy: Eval and Treat Problem/Diagnosis (1) COPD exacerbation: Status: Chronic Code(s): J44.1 - Chronic obstructive pulmonary disease with (acute) exacerbation (2) Acute and chronic respiratory failure with hypoxia: Status: Chronic Code(s): J96.21 - Acute and chronic respiratory failure with hypoxia Plan #Acute on chronic hypoxic respiratory failure due to COPD exacerbation * On breathing treatments bronchodilators and steroids * On IV ceftriaxone and azithromycin. * Chest x-ray shows bilateral infiltrates. Sputum cultures grew mixed normal meli. Continue on IV ceftriaxone and azithromycin. * #Acute on chronic heart failure preserved ejection fraction: * On IV Lasix. 2D echo showed EF of 55% with stage II diastolic dysfunction and inferior and posterior hypokinesis. Left atrium was severely enlarged and normal right atrium. RVSP of 48 mmHg.. Monitor intake and output. Fluid restriction to 1500 cc daily. #CAD s/p stent: * Has a history of mitral valve repair as well. * Troponins were mildly elevated but remained flat. * He did not have any chest pain or pressure. Was likely thought to be demand ischemia from hypoxia and COPD exacerbation. * On aspirin and Brilinta as well as lisinopril and high intensity statin as well as metoprolol. * 2D echo did show stage II diastolic dysfunction and inferior and posterior hypokinesis. This appears to have been present on previous echoes. * #S/p mitral valve repair: Stable #Hyperlipidemia: On statin #Hypertension: On metoprolol and amlodipine DVT prophylaxis: Lovenox Disposition: Anticipate discharge over the next 24 to 48 hours. Allergies/Procedures Done in Hospital Allergies No Known Allergies Allergy (Verified 03/18/22 14:19) Procedures: 2-D Echocardiogram Type of Care/Length of Stay Estimated LOS: Convalescent Care Less Than 30 days Type of Care Needed: Skilled Rehab Potential: Fair Prognosis: Fair Additional Orders/Day of Discharge Day of Discharge: 11/10/22 Dietary and Speech Recommendations Dietitian Recommendations/Changes: continue cardiac diet as tolerated Discharge Plan Admission Admit Date/Time: 11/04/22 19:53 Primary Reason for Your Visit: acute hypoxic respiratory failure due to COPD and pneuomonia Attending Provider: Marisa Vickers Primary Care Provider: Blanca Harris Consulting Providers: Campos Dinh ; Carlos Calixto Instructions Patient Instructions: COPD Quit Smoking, COPD Meds, ED Pneumonia (Adult) Discharge Orders/Prescriptions Prescriptions: New prednisone 20 mg tablet 40 mg PO DAILY Qty: 10 0RF Continued cholecalciferol (vitamin D3) 50 mcg (2,000 unit) capsule 50 mcg PO DAILY metoprolol succinate 25 mg tablet extended release 24 hr 25 mg PO DAILY atorvastatin 80 MG tablet 80 mg PO QHS Label Comments: amlodipine 5 MG tablet 5 mg PO DAILY Label Comments: lisinopril 10 MG tablet 10 mg PO DAILY Label Comments: aspirin 81 MG tablet,chewable 81 mg PO DAILY albuterol sulfate 1 INHALER inhaler 1 - 2 puff INHALATION Q4H PRN PRN (Reason: Wheezing) Qty: 1 0RF loratadine [Claritin RediTabs] 10 mg tablet,disintegrating 10 mg PO DAILY Qty: 60 0RF Brilinta 90 mg tablet See Rx Instructions .ROUTE .COMPLEX Qty: 180 3RF Dose Instruction: TAKE 1 TABLET BY MOUTH TWICE A DAY Rx Instructions: TAKE 1 TABLET BY MOUTH TWICE A DAY Referrals / Follow Up: Blanca Harris MD [Primary Care Provider] - Within 2 Weeks Disposition Disposition (needs filled in before D/C Order can be placed): Long-Term Facility
--- NOTE | 2022-11-10 14:26 | PHA.DC.MR ---
Pharmacy Service has performed discharge medication reconciliation for this patient. The patient's discharge medication list was reviewed for discrepancies and discrepancies were resolved. Home Medications amlodipine 5 mg tablet 5 mg PO DAILY 03/20/17 aspirin 81 mg chewable tablet 81 mg PO DAILY 03/20/17 atorvastatin 80 mg tablet 80 mg PO QHS 03/20/17 lisinopril 10 mg tablet 10 mg PO DAILY 03/20/17 albuterol sulfate 90 mcg/actuation aerosol inhaler 1 - 2 puff inhalation Q4H PRN PRN Wheezing ##1 03/31/17 cholecalciferol (vitamin D3) 50 mcg (2,000 unit) capsule 50 mcg PO DAILY 04/16/20 metoprolol succinate 25 mg tablet,extended release 24 hr 25 mg PO DAILY 08/18/21 ticagrelor 90 mg tablet (Brilinta) See Rx Instructions .Route .COMPLEX #180 tabs 10/06/22 loratadine 10 mg disintegrating tablet (Claritin RediTabs) 10 mg PO DAILY #60 tabs 11/01/22 prednisone 20 mg tablet 40 mg PO DAILY #10 tabs 11/10/22
--- NOTE | 2022-11-10 15:13 | CASEMGMT ---
Discharge Planning Discharge orders and pickup time sent to [facility] via [facility]. Jennifer Wolf DC Planning Asst.
--- NOTE | 2022-11-10 15:18 | CASEMGMT ---
Patient is medically ready for discharge today. Precert was received for patient to be admitted to [facility] upon discharge. [id number] completed and sent with discharge orders with patient to [facility]. Patient updated of discharge and transport. Transport arranged with [facility] via wheelchair. Patient stated understanding and said that she would update family. No additional sw needs at this time. Whitley Iyer, FIREWALL ENGINEER, MARGIN TRIMMER
== END 2022-11-10 17:21 | disposition skilled nursing facility (03) | DRG 139 ==
LOC: ED 17:19 → PCU 20:29
PROVIDERS: Family Medicine; Internal Medicine; Emergency Provider Student in an Organized Health Care Education/Training Program; PCP Internal Medicine; Visit Provider Student in an Organized Health Care Education/Training Program
DX: J13 Pneumonia due to Streptococcus pneumoniae (principal); J96.21 Acute and chronic respiratory failure with hypoxia; I50.33 Acute on chronic diastolic (congestive) heart failure; I24.8 Other forms of acute ischemic heart disease; J44.0 Chronic obstructive pulmonary disease with (acute) lower respiratory infection; I11.0 Hypertensive heart disease with heart failure; J44.1 Chronic obstructive pulmonary disease with (acute) exacerbation; I25.10 Atherosclerotic heart disease of native coronary artery without angina pectoris; E78.5 Hyperlipidemia, unspecified; I25.2 Old myocardial infarction; I45.10 Unspecified right bundle-branch block; I25.5 Ischemic cardiomyopathy; G47.33 Obstructive sleep apnea (adult) (pediatric); J30.9 Allergic rhinitis, unspecified; Z95.1 Presence of aortocoronary bypass graft; Z95.4 Presence of other heart-valve replacement; Z95.5 Presence of coronary angioplasty implant and graft; Z79.02 Long term (current) use of antithrombotics/antiplatelets; Z79.82 Long term (current) use of aspirin; Z87.891 Personal history of nicotine dependence; Z79.899 Other long term (current) drug therapy
CPT/HCPCS: 36415; 71045; 71046; 71275; 80048; 80053; 83880; 84484; 85025; 85379; 87070; 87205; 87426; 87449; 87804; 87811; 93005; 93306; 94640; 94667; 94668; 97110; 97116; 97162; 97166; 97530; 97535; 99252; 99285; J7040; Q9967; A4216; G0463; J0696; J1940

== ENCOUNTER → 2024-03-21 | Outpatient (REF) | payer MEDICARE, MEDICAID, SELFPAY ==
[2024-03-21 09:31] LABS: Hematocrit 35.6 % (37-47); Hemoglobin 11.3 g/dL (12.0-15.0); Mean Corp Hgb Conc 31.7 g/dL (32-36); Mean Corpuscular Volume 91.3 fL (81-99); Mean Platelet Vol. 10.9 fl (6.2-12.0); Platelet Count 442 K/mm3 (150-450); RBC Distribution Width CV 14.6 % (11.6-14.6); RBC Distribution Width SD 48.5 fl (35.1-43.9); White Blood Count 5.2 K/mm3 (4.4-11.0)
[2024-03-21 09:55] LABS: ALB/GLOB Ratio 0.6 RATIO (0.9-2.4); AST(SGOT) 34 U/L (15-37); Alanine Aminotransfer ALT/SGPT 33 U/L (13-56); Alkaline Phosphatase 71 U/L (45-117); Anion Gap 3 (5-15); BUN 13 mg/dL (7-18); Calcium,Total 8.8 mg/dL (8.5-10.1); Chloride 100 mmol/L (98-107); Creatinine, Serum 0.68 mg/dL (0.55-1.02); EST Glomerular Filtration Rate 91 mL/min (>60); Est Glom Filt Rate - Afr Amer 110 mL/min (>60); Globulin 4.8 g/dL (2.2-4.2); Glucose 84 mg/dL (74-106); Potassium 4.4 mmol/L (3.5-5.1); Protein, Total 7.8 g/dL (6.4-8.2); Sodium Level 135 mmol/L (136-145)
== END ==
LOC: OLS.SANC 05:00
PROVIDERS: PCP Internal Medicine; Visit Provider Internal Medicine
DX: Z79.899 Other long term (current) drug therapy (principal)
CPT/HCPCS: 36415; 80053; 85027

== ENCOUNTER → 2024-10-12 | Outpatient (CLI) | payer MEDICAID, SELFPAY ==
--- NOTE | 2024-10-12 12:20 | RAD_ITS ---
EXAM: XR Chest, 2 Views CLINICAL INDICATION: SHORTNESS OF BREATH TECHNIQUE: Frontal and lateral views of the chest. COMPARISON: XR Chest dated 10/06/2024 FINDINGS: LUNGS AND PLEURAL SPACES: See below. HEART: Cardiomegaly with mild congestion. MEDIASTINUM: Unremarkable. Normal mediastinal contour. BONES/JOINTS: Sternotomy wires. No acute fracture. RAD/Chest PA and Lateral IMPRESSION: Cardiomegaly with mild congestion. Reading Location: [id number]
[2024-10-12 12:44] LABS: Hematocrit 34.5 % (37-47); Hemoglobin 11.1 g/dL (12.0-15.0); Mean Corp Hgb Conc 32.2 g/dL (32-36); Mean Corpuscular Hgb 28.2 pg (27.0-32.0); Mean Corpuscular Volume 87.6 fL (81-99); Mean Platelet Vol. 11.7 fl (6.2-12.0); Platelet Count 209 K/mm3 (150-450); RBC Distribution Width CV 15.8 % (11.6-14.6); RBC Distribution Width SD 50.7 fl (35.1-43.9); Red Blood Count 3.94 M/mm3 (4.2-5.4)
[2024-10-12 13:31] LABS: Anion Gap 9 (5-15); BUN 16 mg/dL (4-19); BUN/Creat Ratio 22.1 RATIO (10-20); Calcium,Total 9.1 mg/dL (7.6-11.0); Carbon Dioxide 24.2 mmol/L (21.0-32.0); Chloride 104 mmol/L (98-108); Creatinine, Serum 0.71 mg/dL (0.70-1.20); EST Glomerular Filtration Rate 92 (>60); Glucose 87 mg/dL (70-99); Potassium 4.8 mmol/L (3.3-5.1); Sodium Level 138 mmol/L (133-145)
== END | disposition home or self-care (01) ==
PROVIDERS: PCP Internal Medicine; Referring Provider Student in an Organized Health Care Education/Training Program; Visit Provider Student in an Organized Health Care Education/Training Program
DX: R06.02 Shortness of breath (principal); R53.83 Other fatigue
CPT/HCPCS: 36415; 71046; 80048; 84443; 85027